=== PATIENT | male | born 1945 | race Caucasian/White ===

== ENCOUNTER 2022-12-25 03:13 | Inpatient (IN) | payer OTHER, BC ==
[2022-12-25 05:50] LABS: HEMATOCRIT 21.7 % (35.4-49); MCH 23.8 pg (25.7-33.7); MCHC 29.8 g/dl (32.0-35.9); MEAN CELL VOLUME 79.8 fl (80-96); MEAN PLT VOLUME 7.1 fl (7.5-11.1); PLATELET COUNT 971 10^3/uL (134-434); RBC 2.72 M/mm3 (4.00-5.60); RDW 20.3 % (11.9-15.9); WHITE BLOOD COUNT 26.8 K/mm3 (4.0-10.0)
[2022-12-25 06:06] LABS: HEMOGLOBIN 6.5 GM/dL (11.7-16.9)
[2022-12-25 06:09] LABS: POTASSIUM 5.1 mmol/L (3.5-5.1)
[2022-12-25 06:11] LABS: CALCIUM 9.6 mg/dL (8.5-10.1)
[2022-12-25 06:12] LABS: ALBUMIN 1.4 g/dl (3.4-5.0); BLOOD UREA NITROGEN 56.1 mg/dL (7-18)
[2022-12-25 06:15] LABS: CREATININE 1.2 mg/dL (0.55-1.3)
[2022-12-25 06:16] LABS: BILIRUBIN,TOTAL 0.2 mg/dL (0.2-1); TOT PROT 7.4 g/dl (6.4-8.2)
[2022-12-25 08:16] LABS: EPI CELLS 4 /uL (0-25.1); HYALINE CASTS 1 /uL (0-3.1); URINE APPEARANCE CLOUDY; URINE BACTERIA 2543 /uL (0-1359); URINE BILIRUBIN NEGATIVE (NEGATIVE); URINE COLOR YELLOW; URINE GLUCOSE (UA) NEGATIVE (NEGATIVE); URINE KETONE NEGATIVE (NEGATIVE); URINE LEUK ESTERASE 2+ (NEGATIVE); URINE NITRITE NEGATIVE (NEGATIVE); URINE PROTEIN 1+ (NEGATIVE); URINE RBC 5 /uL (0-23.9); URINE WBC 306 /uL (0-25.8)
[2022-12-25 08:35] LABS: YEAST MANY PRESENT (NEGATIVE)
[2022-12-25 09:02] LABS: ANISOCYTOSIS 1+; MACROCYTOSIS 1+
[2022-12-25] MEDS ORDERED: ONDANSETRON HCL 4 MG/5 ML UD CUPS GT PRN (09:57)
[2022-12-25] MEDS: FLUTICASONE PROP 0.05% 16 GM NASAL SPRAY NS SCH ×2 (10:00→22:22)
[2022-12-25] MEDS ORDERED: VENLAFAXINE HCL 75 MG E.R. CAPSULES PO SCH (10:00)
[2022-12-25] MEDS ORDERED: POLYETHYLENE GLYCOL 3350 255 GM BTL PO SCH (10:00)
[2022-12-25] MEDS: LACTULOSE 20 GM/30 ML UDC (FOR ORAL USE ONLY) GT SCH (10:00)
[2022-12-25] MEDS ORDERED: VANCOMYCIN 1 GM/200 ML PREMIX BAG (RESTRICTED TO ID ONLY) IVPB ONE (10:00)
[2022-12-25] MEDS ORDERED: PIPERACILLIN/TAZOB 3.375 GM 3.375 GM in DEXTROSE 5%-WATER - 50 ML IVPB SCH (10:00)
[2022-12-25] MEDS: ASCORBIC ACID 500 MG/5 ML UNIT DOSE CUP PO SCH ×2 (12:03→22:26)
[2022-12-25] MEDS: OXYBUTYNIN CHLORIDE 5 MG/5 ML PO SCH ×2 (12:03→22:25)
[2022-12-25 12:28] VITALS: BMI 23.8
[2022-12-25] MEDS: GABAPENTIN 250 MG/5 ML ORAL SOLUTION, 470 ML BOTTLE GT SCH ×2 (13:16→22:26)
[2022-12-25] MEDS: FAMOTIDINE 20 MG/2.5 ML ORAL LIQUID GT SCH (13:16)
[2022-12-25] MEDS: VANCOMYCIN/WATER FOR INJ (PEG) 1,000 MG/200 ML BAG IVPB SCH (17:14)
[2022-12-25] MEDS: PIPERACILLIN/TAZOB 3.375 GM 3.375 GM in DEXTROSE 5%-WATER - 50 ML IVPB SCH (18:40)
[2022-12-25] MEDS: ATORVASTATIN CA 10 MG TABLET (FP) GT SCH (21:30)
[2022-12-25] MEDS: MELATONIN 1 MG TABLET GT SCH (21:30)
[2022-12-25] MEDS: SENNOSIDES 8.8 MG/5 ML SYRUP GT SCH (21:31)
[2022-12-25] MEDS ORDERED: VANCOMYCIN 1 GM in D5W (PRE-DOCKED) 1,000 MG/250 ML (RESTRICTED TO ID ONLY IVPB SCH (22:00)
[2022-12-25] MEDS ORDERED: VANCOMYCIN/WATER FOR INJ (PEG) 1,000 MG/200 ML BAG IVPB SCH (22:00)
[2022-12-25] MEDS ORDERED: VANCOMYCIN/WATER FOR INJ (PEG) 1,000 MG/200 ML BAG IVPB ONE (22:00)
[2022-12-26] MEDS: PIPERACILLIN/TAZOB 3.375 GM 3.375 GM in DEXTROSE 5%-WATER - 50 ML IVPB SCH ×3 (02:00→18:17)
[2022-12-26] MEDS: ACETAMINOPHEN 650 MG/20.3 ML ORAL SOLUTION (CUPS) GT PRN ×2 (03:42→23:08)
[2022-12-26] MEDS: VANCOMYCIN/WATER FOR INJ (PEG) 1,000 MG/200 ML BAG IVPB SCH ×2 (04:30→16:41)
[2022-12-26] MEDS: GABAPENTIN 250 MG/5 ML ORAL SOLUTION, 470 ML BOTTLE GT SCH ×3 (06:40→22:59)
[2022-12-26 09:31] LABS: HEMATOCRIT 24.3 % (35.4-49); HEMOGLOBIN 7.4 GM/dL (11.7-16.9); MCH 24.6 pg (25.7-33.7); MCHC 30.5 g/dl (32.0-35.9); MEAN CELL VOLUME 80.7 fl (80-96); MEAN PLT VOLUME 6.5 fl (7.5-11.1); PLATELET COUNT 872 10^3/uL (134-434); RBC 3.01 M/mm3 (4.00-5.60); RDW 19.1 % (11.9-15.9)
[2022-12-26 09:56] LABS: WHITE BLOOD COUNT 34.4 K/mm3 (4.0-10.0)
[2022-12-26 09:59] LABS: CALCIUM 9.5 mg/dL (8.5-10.1)
[2022-12-26 10:02] LABS: BLOOD UREA NITROGEN 48.5 mg/dL (7-18)
[2022-12-26 10:03] LABS: CREATININE 1.4 mg/dL (0.55-1.3)
[2022-12-26] MEDS: LACTULOSE 20 GM/30 ML UDC (FOR ORAL USE ONLY) GT SCH (10:14)
[2022-12-26] MEDS: OXYBUTYNIN CHLORIDE 5 MG/5 ML PO SCH ×2 (10:15→22:58)
[2022-12-26] MEDS: FAMOTIDINE 20 MG/2.5 ML ORAL LIQUID GT SCH (10:16)
[2022-12-26] MEDS: ASCORBIC ACID 500 MG/5 ML UNIT DOSE CUP PO SCH ×2 (10:17→23:00)
[2022-12-26 10:19] LABS: ANISOCYTOSIS 2+; MACROCYTOSIS 0; ROULEAU 1+
[2022-12-26] MEDS: FLUTICASONE PROP 0.05% 16 GM NASAL SPRAY NS SCH ×2 (10:27→23:00)
[2022-12-26] MEDS: ATORVASTATIN CA 10 MG TABLET (FP) GT SCH (22:57)
[2022-12-26] MEDS: MELATONIN 1 MG TABLET GT SCH (22:58)
[2022-12-26] MEDS: SENNOSIDES 8.8 MG/5 ML SYRUP GT SCH (22:59)
[2022-12-26] MEDS: ALBUTEROL SO4 0.083% IH SOL 2.5 MG/3 ML VIAL.NEB. NEB PRN (23:27)
[2022-12-27] MEDS: INSULIN SLIDING SCALE (NOVOLOG) 1 VIAL SQ SCH ×5 (00:37→21:51)
[2022-12-27] MEDS: PIPERACILLIN/TAZOB 3.375 GM 3.375 GM in DEXTROSE 5%-WATER - 50 ML IVPB SCH ×3 (02:37→17:28)
[2022-12-27] MEDS: VANCOMYCIN/WATER FOR INJ (PEG) 1,000 MG/200 ML BAG IVPB SCH (05:54)
[2022-12-27] MEDS: GABAPENTIN 250 MG/5 ML ORAL SOLUTION, 470 ML BOTTLE GT SCH ×3 (05:55→21:52)
[2022-12-27 09:29] LABS: HEMATOCRIT 23.5 % (35.4-49); HEMOGLOBIN 7.1 GM/dL (11.7-16.9); MCH 24.6 pg (25.7-33.7); MCHC 30.3 g/dl (32.0-35.9); MEAN CELL VOLUME 81.2 fl (80-96); MEAN PLT VOLUME 6.6 fl (7.5-11.1); PLATELET COUNT 862 10^3/uL (134-434); RDW 19.4 % (11.9-15.9)
[2022-12-27 09:47] LABS: POTASSIUM 3.7 mmol/L (3.5-5.1)
[2022-12-27 09:56] LABS: ALBUMIN 1.3 g/dl (3.4-5.0); CALCIUM 9.4 mg/dL (8.5-10.1)
[2022-12-27 09:57] LABS: BLOOD UREA NITROGEN 44.1 mg/dL (7-18)
[2022-12-27 09:58] LABS: WHITE BLOOD COUNT 30.1 K/mm3 (4.0-10.0)
[2022-12-27 09:59] LABS: CREATININE 1.3 mg/dL (0.55-1.3)
[2022-12-27 10:01] LABS: BILIRUBIN,TOTAL 0.3 mg/dL (0.2-1); TOT PROT 6.9 g/dl (6.4-8.2)
[2022-12-27 10:35] LABS: ANISOCYTOSIS 3+; MACROCYTOSIS 0
[2022-12-27] MEDS: oxyCODONE HCL 5 MG TABLET GT PRN (10:41)
[2022-12-27] MEDS: OXYBUTYNIN CHLORIDE 5 MG/5 ML PO SCH ×2 (10:43→21:36)
[2022-12-27] MEDS: FAMOTIDINE 20 MG/2.5 ML ORAL LIQUID GT SCH (10:43)
[2022-12-27] MEDS: ASCORBIC ACID 500 MG/5 ML UNIT DOSE CUP PO SCH ×2 (10:43→21:35)
[2022-12-27] MEDS: LACTULOSE 20 GM/30 ML UDC (FOR ORAL USE ONLY) GT SCH (10:43)
[2022-12-27] MEDS: LACTATED RINGERS SOLUTION 1,000 ML/1,000 ML INFUS.BAG IV SCH (12:32)
[2022-12-27] MEDS: FLUTICASONE PROP 0.05% 16 GM NASAL SPRAY NS SCH ×2 (12:39→21:51)
[2022-12-27] MEDS: SENNOSIDES 8.8 MG/5 ML SYRUP GT SCH (21:35)
[2022-12-27] MEDS: MELATONIN 1 MG TABLET GT SCH (21:36)
[2022-12-27] MEDS: ATORVASTATIN CA 10 MG TABLET (FP) GT SCH (21:36)
[2022-12-27] MEDS: ACETAMINOPHEN 650 MG/20.3 ML ORAL SOLUTION (CUPS) GT PRN (21:51)
[2022-12-28] MEDS: ALBUTEROL SO4 0.083% IH SOL 2.5 MG/3 ML VIAL.NEB. NEB PRN ×2 (00:05→21:28)
[2022-12-28] MEDS: LACTATED RINGERS SOLUTION 1,000 ML/1,000 ML INFUS.BAG IV SCH (01:12)
[2022-12-28] MEDS: PIPERACILLIN/TAZOB 3.375 GM 3.375 GM in DEXTROSE 5%-WATER - 50 ML IVPB SCH ×3 (01:13→18:12)
[2022-12-28] MEDS: GABAPENTIN 250 MG/5 ML ORAL SOLUTION, 470 ML BOTTLE GT SCH ×3 (06:17→22:43)
[2022-12-28] MEDS: INSULIN SLIDING SCALE (NOVOLOG) 1 VIAL SQ SCH ×4 (06:28→22:53)
[2022-12-28] MEDS: AMINO ACIDS/PROTEIN HYDROLYS 30 ML LIQUID.PKT GT SCH (08:53)
[2022-12-28] MEDS: ACETAMINOPHEN 650 MG/20.3 ML ORAL SOLUTION (CUPS) GT PRN (08:53)
[2022-12-28 08:59] LABS: HEMATOCRIT 21.8 % (35.4-49); MCH 24.5 pg (25.7-33.7); MCHC 30.3 g/dl (32.0-35.9); MEAN CELL VOLUME 80.7 fl (80-96); MEAN PLT VOLUME 6.5 fl (7.5-11.1); PLATELET COUNT 772 10^3/uL (134-434); RDW 20.2 % (11.9-15.9); WHITE BLOOD COUNT 24.8 K/mm3 (4.0-10.0)
[2022-12-28 09:06] LABS: HEMOGLOBIN 6.6 GM/dL (11.7-16.9)
[2022-12-28] MEDS ORDERED: ACETAMINOPHEN 1000 MG/100 ML BAG IVPB PRN (09:15)
[2022-12-28 09:20] LABS: POTASSIUM 4.1 mmol/L (3.5-5.1)
[2022-12-28 09:25] LABS: CALCIUM 8.9 mg/dL (8.5-10.1)
[2022-12-28 09:29] LABS: CREATININE 1.2 mg/dL (0.55-1.3)
[2022-12-28] MEDS: MULTIVIT-MINERALS ORAL LIQUID GT SCH (10:35)
[2022-12-28] MEDS: ASCORBIC ACID 500 MG/5 ML UNIT DOSE CUP PO SCH ×2 (10:35→22:39)
[2022-12-28] MEDS: LACTULOSE 20 GM/30 ML UDC (FOR ORAL USE ONLY) GT SCH (10:35)
[2022-12-28] MEDS: FAMOTIDINE 20 MG/2.5 ML ORAL LIQUID GT SCH (10:36)
[2022-12-28] MEDS: ZINC SULFATE 220 MG CAPSULE (FP) GT SCH (10:36)
[2022-12-28] MEDS: OXYBUTYNIN CHLORIDE 5 MG/5 ML PO SCH (10:36)
[2022-12-28] MEDS: FLUTICASONE PROP 0.05% 16 GM NASAL SPRAY NS SCH ×2 (10:37→22:39)
[2022-12-28] MEDS: MELATONIN 1 MG TABLET GT SCH (22:38)
[2022-12-28] MEDS: ATORVASTATIN CA 10 MG TABLET (FP) GT SCH (22:38)
[2022-12-28] MEDS: SENNOSIDES 8.8 MG/5 ML SYRUP GT SCH (22:38)
[2022-12-28] MEDS: LINEZOLID 600 MG PREMIX BAG 600 MG/300 ML BAG IVPB SCH (22:39)
[2022-12-28] MEDS ORDERED: TUBE FEED DECLOGGING SOLUTION 12,000 UNITS GT ONE (23:41)
[2022-12-29] MEDS: PIPERACILLIN/TAZOB 3.375 GM 3.375 GM in DEXTROSE 5%-WATER - 50 ML IVPB SCH ×3 (03:00→17:30)
[2022-12-29] MEDS: OXYBUTYNIN CHLORIDE 5 MG/5 ML PO SCH ×3 (03:00→22:08)
[2022-12-29] MEDS: TUBE FEED DECLOGGING SOLUTION 12,000 UNITS GT ONE ×2 (05:03→05:05)
[2022-12-29] MEDS: GABAPENTIN 250 MG/5 ML ORAL SOLUTION, 470 ML BOTTLE GT SCH ×3 (05:56→22:08)
[2022-12-29] MEDS: INSULIN SLIDING SCALE (NOVOLOG) 1 VIAL SQ SCH ×4 (05:59→22:35)
[2022-12-29] MEDS: LINEZOLID 600 MG PREMIX BAG 600 MG/300 ML BAG IVPB SCH ×2 (07:50→22:08)
[2022-12-29] MEDS: AMINO ACIDS/PROTEIN HYDROLYS 30 ML LIQUID.PKT GT SCH ×2 (07:50→10:10)
[2022-12-29] MEDS: ALBUTEROL SO4 0.083% IH SOL 2.5 MG/3 ML VIAL.NEB. NEB PRN ×3 (08:22→20:04)
[2022-12-29] MEDS: LACTULOSE 20 GM/30 ML UDC (FOR ORAL USE ONLY) GT SCH (10:10)
[2022-12-29] MEDS: MULTIVIT-MINERALS ORAL LIQUID GT SCH (10:11)
[2022-12-29] MEDS: ZINC SULFATE 220 MG CAPSULE (FP) GT SCH (10:11)
[2022-12-29] MEDS: ASCORBIC ACID 500 MG/5 ML UNIT DOSE CUP PO SCH ×2 (10:12→22:09)
[2022-12-29] MEDS: FAMOTIDINE 20 MG/2.5 ML ORAL LIQUID GT SCH (10:12)
[2022-12-29] MEDS ORDERED: TUBE FEED DECLOGGING SOLUTION 12,000 UNITS GT ONE (10:24)
[2022-12-29 10:26] LABS: HEMATOCRIT 27.5 % (35.4-49); HEMOGLOBIN 8.6 GM/dL (11.7-16.9); MCH 25.2 pg (25.7-33.7); MCHC 31.2 g/dl (32.0-35.9); MEAN CELL VOLUME 80.9 fl (80-96); MEAN PLT VOLUME 6.7 fl (7.5-11.1); PLATELET COUNT 859 10^3/uL (134-434); RBC 3.39 M/mm3 (4.00-5.60); RDW 18.9 % (11.9-15.9); WHITE BLOOD COUNT 25.6 K/mm3 (4.0-10.0)
[2022-12-29 10:41] LABS: POTASSIUM 3.9 mmol/L (3.5-5.1)
[2022-12-29] MEDS: FLUTICASONE PROP 0.05% 16 GM NASAL SPRAY NS SCH ×2 (10:47→22:08)
[2022-12-29] MEDS: LACTATED RINGERS SOLUTION 1,000 ML/1,000 ML INFUS.BAG IV SCH (10:47)
[2022-12-29 10:48] LABS: BLOOD UREA NITROGEN 32.4 mg/dL (7-18); CALCIUM 9.7 mg/dL (8.5-10.1); MAGNESIUM 2.2 mg/dL (1.8-2.4)
[2022-12-29 10:51] LABS: CREATININE 1.1 mg/dL (0.55-1.3)
[2022-12-29] MEDS: MELATONIN 1 MG TABLET GT SCH (22:08)
[2022-12-29] MEDS: ATORVASTATIN CA 10 MG TABLET (FP) GT SCH (22:08)
[2022-12-29] MEDS: SENNOSIDES 8.8 MG/5 ML SYRUP GT SCH (22:09)
[2022-12-30] MEDS: PIPERACILLIN/TAZOB 3.375 GM 3.375 GM in DEXTROSE 5%-WATER - 50 ML IVPB SCH ×3 (03:47→18:55)
[2022-12-30] MEDS: GABAPENTIN 250 MG/5 ML ORAL SOLUTION, 470 ML BOTTLE GT SCH ×3 (05:49→22:00)
[2022-12-30] MEDS: INSULIN SLIDING SCALE (NOVOLOG) 1 VIAL SQ SCH ×4 (06:04→22:00)
[2022-12-30] MEDS ORDERED: INSULIN (NOVOLOG) ASPART 100 UNITS/ML 10ML VIAL ONE (06:46)
[2022-12-30] MEDS: ALBUTEROL SO4 0.083% IH SOL 2.5 MG/3 ML VIAL.NEB. NEB PRN (08:15)
[2022-12-30] MEDS: LINEZOLID 600 MG PREMIX BAG 600 MG/300 ML BAG IVPB SCH ×2 (09:03→23:54)
[2022-12-30] MEDS: AMINO ACIDS/PROTEIN HYDROLYS 30 ML LIQUID.PKT GT SCH (09:03)
[2022-12-30 10:14] LABS: POTASSIUM 3.6 mmol/L (3.5-5.1)
[2022-12-30 10:22] LABS: CALCIUM 9.8 mg/dL (8.5-10.1)
[2022-12-30 10:23] LABS: BLOOD UREA NITROGEN 27.8 mg/dL (7-18)
[2022-12-30 10:26] LABS: CREATININE 1.1 mg/dL (0.55-1.3)
[2022-12-30 10:32] LABS: HEMATOCRIT 26.5 % (35.4-49); HEMOGLOBIN 8.1 GM/dL (11.7-16.9); MCH 25.1 pg (25.7-33.7); MCHC 30.5 g/dl (32.0-35.9); MEAN CELL VOLUME 82.5 fl (80-96); MEAN PLT VOLUME 7.1 fl (7.5-11.1); PLATELET COUNT 801 10^3/uL (134-434); RBC 3.21 M/mm3 (4.00-5.60); RDW 19.8 % (11.9-15.9); WHITE BLOOD COUNT 18.9 K/mm3 (4.0-10.0)
[2022-12-30] MEDS: ALBUTEROL SO4 2.5/IPRATROPIUM 0.5 INH SOL 3 ML VIAL.NEB. NEB SCH ×3 (11:15→19:51)
[2022-12-30] MEDS: guaiFENesin/D-M SUGAR-FREE/ACLHOL-FREE 5 ML UNIT DOSE GT SCH ×3 (11:35→20:15)
[2022-12-30] MEDS: LACTULOSE 20 GM/30 ML UDC (FOR ORAL USE ONLY) GT SCH (11:35)
[2022-12-30] MEDS: MULTIVIT-MINERALS ORAL LIQUID GT SCH (11:36)
[2022-12-30] MEDS: FAMOTIDINE 20 MG/2.5 ML ORAL LIQUID GT SCH (11:37)
[2022-12-30] MEDS: ZINC SULFATE 220 MG CAPSULE (FP) GT SCH (11:37)
[2022-12-30] MEDS: FLUTICASONE PROP 0.05% 16 GM NASAL SPRAY NS SCH ×2 (11:37→22:00)
[2022-12-30] MEDS: ASCORBIC ACID 500 MG/5 ML UNIT DOSE CUP PO SCH ×2 (11:38→22:00)
[2022-12-30] MEDS: OXYBUTYNIN CHLORIDE 5 MG/5 ML PO SCH ×2 (11:53→22:00)
[2022-12-30] MEDS ORDERED: ONDANSETRON 4 MG/2 ML VIAL IVPUSH PRN (14:29)
[2022-12-30] MEDS: SODIUM CHLORIDE 0.45% 1,000 ML IV SCH (14:55)
[2022-12-30] MEDS ORDERED: ACETAMINOPHEN 1000 MG/100 ML BAG IVPB PRN (18:38)
[2022-12-30] MEDS ORDERED: MEROPENEM 1 GM in DEXTROSE 5%-WATER 100 ML IVPB SCH (18:45)
[2022-12-30] MEDS: LACTATED RINGERS SOLUTION 1,000 ML/1,000 ML INFUS.BAG IV SCH (19:14)
[2022-12-30] MEDS: MEROPENEM 1 GM in DEXTROSE 5%-WATER 100 ML IVPB SCH (20:31)
[2022-12-30] MEDS: ATORVASTATIN CA 10 MG TABLET (FP) GT SCH (22:00)
[2022-12-30] MEDS: SENNOSIDES 8.8 MG/5 ML SYRUP GT SCH (22:00)
[2022-12-30] MEDS: MELATONIN 1 MG TABLET GT SCH (22:00)
[2022-12-31] MEDS: PIPERACILLIN/TAZOB 3.375 GM 3.375 GM in DEXTROSE 5%-WATER - 50 ML IVPB SCH ×2 (01:05→11:37)
[2022-12-31] MEDS: guaiFENesin/D-M SUGAR-FREE/ACLHOL-FREE 5 ML UNIT DOSE GT SCH ×4 (02:54→22:55)
[2022-12-31] MEDS: MEROPENEM 1 GM in DEXTROSE 5%-WATER 100 ML IVPB SCH ×3 (04:37→17:45)
[2022-12-31] MEDS: GABAPENTIN 250 MG/5 ML ORAL SOLUTION, 470 ML BOTTLE GT SCH ×3 (05:09→22:55)
[2022-12-31] MEDS: INSULIN SLIDING SCALE (NOVOLOG) 1 VIAL SQ SCH ×4 (06:19→22:50)
[2022-12-31] MEDS: ALBUTEROL SO4 2.5/IPRATROPIUM 0.5 INH SOL 3 ML VIAL.NEB. NEB SCH ×4 (07:47→20:36)
[2022-12-31] MEDS: LINEZOLID 600 MG PREMIX BAG 600 MG/300 ML BAG IVPB SCH ×2 (08:51→22:00)
[2022-12-31] MEDS: AMINO ACIDS/PROTEIN HYDROLYS 30 ML LIQUID.PKT GT SCH ×2 (08:51→17:46)
[2022-12-31 10:09] LABS: HEMATOCRIT 25.9 % (35.4-49); HEMOGLOBIN 7.9 GM/dL (11.7-16.9); MCH 25.1 pg (25.7-33.7); MCHC 30.4 g/dl (32.0-35.9); MEAN CELL VOLUME 82.6 fl (80-96); MEAN PLT VOLUME 7.1 fl (7.5-11.1); PLATELET COUNT 808 10^3/uL (134-434); RBC 3.14 M/mm3 (4.00-5.60); RDW 19.9 % (11.9-15.9); WHITE BLOOD COUNT 23.3 K/mm3 (4.0-10.0)
[2022-12-31 10:26] LABS: POTASSIUM 3.4 mmol/L (3.5-5.1)
[2022-12-31 10:34] LABS: CALCIUM 9.4 mg/dL (8.5-10.1); MAGNESIUM 2.3 mg/dL (1.8-2.4)
[2022-12-31 10:35] LABS: BLOOD UREA NITROGEN 24.9 mg/dL (7-18)
[2022-12-31 10:38] LABS: CREATININE 1.1 mg/dL (0.55-1.3); PHOSPHOROUS 3.7 mg/dL (2.5-4.9)
[2022-12-31] MEDS: LACTULOSE 20 GM/30 ML UDC (FOR ORAL USE ONLY) GT SCH (11:30)
[2022-12-31] MEDS: MULTIVIT-MINERALS ORAL LIQUID GT SCH (11:30)
[2022-12-31] MEDS: FLUTICASONE PROP 0.05% 16 GM NASAL SPRAY NS SCH ×2 (11:30→22:46)
[2022-12-31] MEDS: FAMOTIDINE 20 MG/2.5 ML ORAL LIQUID GT SCH (11:31)
[2022-12-31] MEDS: ASCORBIC ACID 500 MG/5 ML UNIT DOSE CUP PO SCH ×2 (11:31→22:49)
[2022-12-31] MEDS: OXYBUTYNIN CHLORIDE 5 MG/5 ML PO SCH ×2 (11:31→22:50)
[2022-12-31] MEDS: ONDANSETRON 4 MG/2 ML VIAL IVPUSH SCH ×3 (11:37→22:45)
[2022-12-31] MEDS ORDERED: POTASSIUM CHLORIDE ORAL LIQUID 20 MEQ/15 ML PO ONE (13:31)
[2022-12-31] MEDS: oxyCODONE HCL 5 MG TABLET GT PRN (15:16)
[2022-12-31] MEDS: SODIUM CHLORIDE 0.45% 1,000 ML IV SCH (16:36)
[2022-12-31] MEDS: MELATONIN 1 MG TABLET GT SCH (22:47)
[2022-12-31] MEDS: ATORVASTATIN CA 10 MG TABLET (FP) GT SCH (22:47)
[2022-12-31] MEDS: SENNOSIDES 8.8 MG/5 ML SYRUP GT SCH (22:48)
[2023-01-01] MEDS: MEROPENEM 1 GM in DEXTROSE 5%-WATER 100 ML IVPB SCH ×3 (02:51→17:04)
[2023-01-01] MEDS: ONDANSETRON 4 MG/2 ML VIAL IVPUSH SCH ×4 (02:51→21:08)
[2023-01-01] MEDS: guaiFENesin/D-M SUGAR-FREE/ACLHOL-FREE 5 ML UNIT DOSE GT SCH ×4 (06:00→23:07)
[2023-01-01] MEDS: GABAPENTIN 250 MG/5 ML ORAL SOLUTION, 470 ML BOTTLE GT SCH ×3 (06:03→23:02)
[2023-01-01] MEDS: INSULIN SLIDING SCALE (NOVOLOG) 1 VIAL SQ SCH ×4 (06:22→23:06)
[2023-01-01] MEDS: oxyCODONE HCL 5 MG TABLET GT PRN ×2 (06:25→23:02)
[2023-01-01] MEDS ORDERED: ALBUTEROL SO4 2.5/IPRATROPIUM 0.5 INH SOL 3 ML VIAL.NEB. NEB ONE (07:04)
[2023-01-01] MEDS ORDERED: SODIUM CHLORIDE 0.45% 1,000 ML IV SCH (08:05)
[2023-01-01] MEDS: ALBUTEROL SO4 2.5/IPRATROPIUM 0.5 INH SOL 3 ML VIAL.NEB. NEB SCH ×4 (08:05→20:40)
[2023-01-01 10:00] LABS: BASO % 1.4 % (0-2.0); EOS % 2.2 % (0-4.5); HEMATOCRIT 24.7 % (35.4-49); HEMOGLOBIN 7.4 GM/dL (11.7-16.9); LYMPH % 5.2 % (8-40); MCH 25.1 pg (25.7-33.7); MCHC 30.1 g/dl (32.0-35.9); MEAN CELL VOLUME 83.4 fl (80-96); MEAN PLT VOLUME 7.4 fl (7.5-11.1); MONO % 8.3 % (3.8-10.2); NEUT % 82.9 % (42.8-82.8); PLATELET COUNT 660 10^3/uL (134-434); RBC 2.97 M/mm3 (4.00-5.60); RDW 20.2 % (11.9-15.9); WHITE BLOOD COUNT 19.7 K/mm3 (4.0-10.0)
[2023-01-01 10:12] LABS: POTASSIUM 3.7 mmol/L (3.5-5.1)
[2023-01-01 10:17] LABS: BLOOD UREA NITROGEN 22.8 mg/dL (7-18); CALCIUM 9.2 mg/dL (8.5-10.1)
[2023-01-01 10:18] LABS: MAGNESIUM 2.1 mg/dL (1.8-2.4)
[2023-01-01] MEDS ORDERED: FUROSEMIDE 40 MG/4 ML INJECTABLE VIAL IVPUSH ONE (10:40)
[2023-01-01] MEDS: LINEZOLID 600 MG PREMIX BAG 600 MG/300 ML BAG IVPB SCH ×2 (11:45→21:08)
[2023-01-01] MEDS: ENOXAPARIN NA (PORCINE) 40 MG/0.4 ML DISP.SYRIN SQ SCH (11:50)
[2023-01-01] MEDS: AMINO ACIDS/PROTEIN HYDROLYS 30 ML LIQUID.PKT GT SCH ×2 (11:50→17:04)
[2023-01-01] MEDS: FAMOTIDINE 20 MG/2.5 ML ORAL LIQUID GT SCH (11:51)
[2023-01-01] MEDS: OXYBUTYNIN CHLORIDE 5 MG/5 ML PO SCH ×2 (11:51→23:05)
[2023-01-01] MEDS: MULTIVIT-MINERALS ORAL LIQUID GT SCH (11:51)
[2023-01-01] MEDS: ASCORBIC ACID 500 MG/5 ML UNIT DOSE CUP PO SCH ×2 (11:51→23:05)
[2023-01-01] MEDS: FLUTICASONE PROP 0.05% 16 GM NASAL SPRAY NS SCH ×2 (12:19→23:03)
[2023-01-01] MEDS: LACTULOSE 20 GM/30 ML UDC (FOR ORAL USE ONLY) GT SCH (13:08)
[2023-01-01] MEDS: ATORVASTATIN CA 10 MG TABLET (FP) GT SCH (23:01)
[2023-01-01] MEDS: MELATONIN 1 MG TABLET GT SCH (23:02)
[2023-01-01] MEDS: SENNOSIDES 8.8 MG/5 ML SYRUP GT SCH (23:05)
[2023-01-02] MEDS: ALBUTEROL SO4 2.5/IPRATROPIUM 0.5 INH SOL 3 ML VIAL.NEB. NEB SCH ×6 (00:16→20:52)
[2023-01-02] MEDS: MEROPENEM 1 GM in DEXTROSE 5%-WATER 100 ML IVPB SCH ×3 (02:06→18:04)
[2023-01-02] MEDS: ONDANSETRON 4 MG/2 ML VIAL IVPUSH SCH ×4 (03:23→23:49)
[2023-01-02] MEDS: guaiFENesin/D-M SUGAR-FREE/ACLHOL-FREE 5 ML UNIT DOSE GT SCH ×4 (03:23→21:46)
[2023-01-02] MEDS: GABAPENTIN 250 MG/5 ML ORAL SOLUTION, 470 ML BOTTLE GT SCH ×3 (05:44→21:49)
[2023-01-02] MEDS: INSULIN SLIDING SCALE (NOVOLOG) 1 VIAL SQ SCH ×4 (06:30→23:50)
[2023-01-02] MEDS ORDERED: FUROSEMIDE 40 MG/4 ML INJECTABLE VIAL IVPUSH ONE (08:26)
[2023-01-02] MEDS: LINEZOLID 600 MG PREMIX BAG 600 MG/300 ML BAG IVPB SCH ×2 (08:38→21:52)
[2023-01-02] MEDS: AMINO ACIDS/PROTEIN HYDROLYS 30 ML LIQUID.PKT GT SCH ×2 (08:38→18:04)
[2023-01-02 09:24] LABS: BASO % 0.8 % (0-2.0); EOS % 3.3 % (0-4.5); HEMATOCRIT 25.5 % (35.4-49); HEMOGLOBIN 7.6 GM/dL (11.7-16.9); LYMPH % 5.7 % (8-40); MCH 24.8 pg (25.7-33.7); MCHC 29.6 g/dl (32.0-35.9); MEAN CELL VOLUME 83.8 fl (80-96); MEAN PLT VOLUME 7.3 fl (7.5-11.1); MONO % 8.2 % (3.8-10.2); PLATELET COUNT 646 10^3/uL (134-434); RBC 3.05 M/mm3 (4.00-5.60); RDW 20.1 % (11.9-15.9); WHITE BLOOD COUNT 16.4 K/mm3 (4.0-10.0)
[2023-01-02 09:54] LABS: POTASSIUM 3.7 mmol/L (3.5-5.1)
[2023-01-02 09:59] LABS: ALBUMIN 1.1 g/dl (3.4-5.0); BLOOD UREA NITROGEN 29.7 mg/dL (7-18); CALCIUM 9.4 mg/dL (8.5-10.1); MAGNESIUM 2.4 mg/dL (1.8-2.4)
[2023-01-02 10:02] LABS: CREATININE 1.1 mg/dL (0.55-1.3); PHOSPHOROUS 4.1 mg/dL (2.5-4.9)
[2023-01-02 10:04] LABS: BILIRUBIN,TOTAL 0.7 mg/dL (0.2-1); TOT PROT 6.4 g/dl (6.4-8.2)
[2023-01-02] MEDS: ENOXAPARIN NA (PORCINE) 40 MG/0.4 ML DISP.SYRIN SQ SCH (11:12)
[2023-01-02] MEDS: LACTULOSE 20 GM/30 ML UDC (FOR ORAL USE ONLY) GT SCH (11:14)
[2023-01-02] MEDS: MULTIVIT-MINERALS ORAL LIQUID GT SCH (11:14)
[2023-01-02] MEDS: ASCORBIC ACID 500 MG/5 ML UNIT DOSE CUP PO SCH ×2 (11:15→23:51)
[2023-01-02] MEDS: FAMOTIDINE 20 MG/2.5 ML ORAL LIQUID GT SCH (11:15)
[2023-01-02] MEDS: FLUTICASONE PROP 0.05% 16 GM NASAL SPRAY NS SCH ×2 (11:16→23:49)
[2023-01-02] MEDS: OXYBUTYNIN CHLORIDE 5 MG/5 ML PO SCH ×2 (14:26→23:51)
[2023-01-02] MEDS: ATORVASTATIN CA 10 MG TABLET (FP) GT SCH (23:48)
[2023-01-02] MEDS: MELATONIN 1 MG TABLET GT SCH (23:48)
[2023-01-02] MEDS: SENNOSIDES 8.8 MG/5 ML SYRUP GT SCH (23:51)
[2023-01-03] MEDS: ALBUTEROL SO4 2.5/IPRATROPIUM 0.5 INH SOL 3 ML VIAL.NEB. NEB SCH ×6 (00:30→20:41)
[2023-01-03] MEDS: MEROPENEM 1 GM in DEXTROSE 5%-WATER 100 ML IVPB SCH ×3 (02:26→16:58)
[2023-01-03] MEDS: guaiFENesin/D-M SUGAR-FREE/ACLHOL-FREE 5 ML UNIT DOSE GT SCH ×4 (02:32→22:16)
[2023-01-03] MEDS: ONDANSETRON 4 MG/2 ML VIAL IVPUSH SCH ×3 (03:38→16:15)
[2023-01-03] MEDS: ACETAMINOPHEN 325 MG TABLET (FP) NR PRN ×2 (05:36→13:09)
[2023-01-03] MEDS: INSULIN SLIDING SCALE (NOVOLOG) 1 VIAL SQ SCH ×4 (07:00→22:23)
[2023-01-03] MEDS: GABAPENTIN 250 MG/5 ML ORAL SOLUTION, 470 ML BOTTLE GT SCH ×4 (07:19→22:23)
[2023-01-03] MEDS: LINEZOLID 600 MG PREMIX BAG 600 MG/300 ML BAG IVPB SCH ×2 (08:00→22:18)
[2023-01-03 09:54] LABS: BASO % 1.3 % (0-2.0); EOS % 1.9 % (0-4.5); HEMATOCRIT 25.8 % (35.4-49); HEMOGLOBIN 7.8 GM/dL (11.7-16.9); MCH 24.9 pg (25.7-33.7); MCHC 30.1 g/dl (32.0-35.9); MEAN CELL VOLUME 82.8 fl (80-96); MEAN PLT VOLUME 7.4 fl (7.5-11.1); MONO % 7.3 % (3.8-10.2); NEUT % 80.5 % (42.8-82.8); PLATELET COUNT 654 10^3/uL (134-434); RBC 3.12 M/mm3 (4.00-5.60); WHITE BLOOD COUNT 15.6 K/mm3 (4.0-10.0)
[2023-01-03 10:21] LABS: CALCIUM 9.4 mg/dL (8.5-10.1)
[2023-01-03 10:22] LABS: ALBUMIN 1.1 g/dl (3.4-5.0); BLOOD UREA NITROGEN 30.5 mg/dL (7-18); MAGNESIUM 2.3 mg/dL (1.8-2.4)
[2023-01-03 10:24] LABS: CREATININE 1.1 mg/dL (0.55-1.3); PHOSPHOROUS 3.1 mg/dL (2.5-4.9)
[2023-01-03 10:26] LABS: BILIRUBIN,TOTAL 0.5 mg/dL (0.2-1); TOT PROT 6.6 g/dl (6.4-8.2)
[2023-01-03] MEDS: AMINO ACIDS/PROTEIN HYDROLYS 30 ML LIQUID.PKT GT SCH ×2 (10:39→16:58)
[2023-01-03] MEDS: MULTIVIT-MINERALS ORAL LIQUID GT SCH (10:41)
[2023-01-03] MEDS: ENOXAPARIN NA (PORCINE) 40 MG/0.4 ML DISP.SYRIN SQ SCH (10:42)
[2023-01-03] MEDS: OXYBUTYNIN CHLORIDE 5 MG/5 ML PO SCH ×2 (10:42→22:15)
[2023-01-03] MEDS: FLUTICASONE PROP 0.05% 16 GM NASAL SPRAY NS SCH ×2 (10:42→22:19)
[2023-01-03] MEDS: FAMOTIDINE 20 MG/2.5 ML ORAL LIQUID GT SCH (10:43)
[2023-01-03] MEDS: ASCORBIC ACID 500 MG/5 ML UNIT DOSE CUP PO SCH ×2 (10:43→22:17)
[2023-01-03] MEDS: LACTULOSE 20 GM/30 ML UDC (FOR ORAL USE ONLY) GT SCH (10:59)
[2023-01-03 12:30] LABS: ARTERIAL BLD GAS O2 SATURATION 98.3 % (95-98); ARTERIAL BLOOD GAS BASE EXCESS 1.8 mmol/L (-2-2); ARTERIAL BLOOD GAS PO2 121.7 mmHg (80-100)
[2023-01-03 12:36] LABS: ALLENS TEST POSITIVE
[2023-01-03 14:03] LABS: INR 1.31 (0.83-1.09); PROTHROMBIN TIME (PATIENT) 15.1 SEC (9.7-13.0)
[2023-01-03] MEDS: COLLAGENASE CLOSTRIDIUM HIST. 30 GRAMS TUBE TP SCH (16:14)
[2023-01-03] MEDS ORDERED: ONDANSETRON 4 MG/2 ML VIAL IVPUSH PRN (16:19)
[2023-01-03] MEDS ORDERED: MEROPENEM 1 GM in DEXTROSE 5%-WATER 100 ML IVPB SCH (18:00)
[2023-01-03] MEDS: MELATONIN 1 MG TABLET GT SCH (22:13)
[2023-01-03] MEDS: ATORVASTATIN CA 10 MG TABLET (FP) GT SCH (22:13)
[2023-01-03] MEDS: SENNOSIDES 8.8 MG/5 ML SYRUP GT SCH (22:15)
[2023-01-04] MEDS: ALBUTEROL SO4 2.5/IPRATROPIUM 0.5 INH SOL 3 ML VIAL.NEB. NEB SCH ×6 (01:24→20:09)
[2023-01-04] MEDS: MEROPENEM 1 GM in DEXTROSE 5%-WATER 100 ML IVPB SCH ×3 (01:35→18:52)
[2023-01-04] MEDS: guaiFENesin/D-M SUGAR-FREE/ACLHOL-FREE 5 ML UNIT DOSE GT SCH ×4 (01:37→20:48)
[2023-01-04] MEDS: INSULIN SLIDING SCALE (NOVOLOG) 1 VIAL SQ SCH ×4 (06:02→21:15)
[2023-01-04] MEDS: GABAPENTIN 250 MG/5 ML ORAL SOLUTION, 470 ML BOTTLE GT SCH ×3 (06:05→22:25)
[2023-01-04] MEDS: AMINO ACIDS/PROTEIN HYDROLYS 30 ML LIQUID.PKT GT SCH ×2 (08:33→18:51)
[2023-01-04] MEDS: ACETAMINOPHEN 1000 MG/100 ML BAG IVPB PRN ×2 (08:34→18:52)
[2023-01-04] MEDS: LINEZOLID 600 MG PREMIX BAG 600 MG/300 ML BAG IVPB SCH ×2 (08:35→20:47)
[2023-01-04 09:36] LABS: HEMATOCRIT 24.7 % (35.4-49); HEMOGLOBIN 7.4 GM/dL (11.7-16.9); MCH 24.7 pg (25.7-33.7); MEAN CELL VOLUME 82.5 fl (80-96); MEAN PLT VOLUME 7.4 fl (7.5-11.1); PLATELET COUNT 590 10^3/uL (134-434); RDW 20.3 % (11.9-15.9); WHITE BLOOD COUNT 19.1 K/mm3 (4.0-10.0)
[2023-01-04 10:01] LABS: CALCIUM 9.1 mg/dL (8.5-10.1)
[2023-01-04 10:02] LABS: BLOOD UREA NITROGEN 29.4 mg/dL (7-18)
[2023-01-04 10:05] LABS: CREATININE 0.9 mg/dL (0.55-1.3); MAGNESIUM 2.2 mg/dL (1.8-2.4)
[2023-01-04] MEDS: MULTIVIT-MINERALS ORAL LIQUID GT SCH (10:13)
[2023-01-04] MEDS: ENOXAPARIN NA (PORCINE) 40 MG/0.4 ML DISP.SYRIN SQ SCH (10:13)
[2023-01-04] MEDS: FAMOTIDINE 20 MG/2.5 ML ORAL LIQUID GT SCH (10:13)
[2023-01-04] MEDS: LACTULOSE 20 GM/30 ML UDC (FOR ORAL USE ONLY) GT SCH (10:14)
[2023-01-04] MEDS: FLUTICASONE PROP 0.05% 16 GM NASAL SPRAY NS SCH ×2 (10:15→22:26)
[2023-01-04] MEDS: ASCORBIC ACID 500 MG/5 ML UNIT DOSE CUP PO SCH ×2 (10:16→22:26)
[2023-01-04] MEDS: OXYBUTYNIN CHLORIDE 5 MG/5 ML PO SCH ×2 (10:16→22:26)
[2023-01-04] MEDS: COLLAGENASE CLOSTRIDIUM HIST. 30 GRAMS TUBE TP SCH (10:16)
[2023-01-04 12:19] LABS: POTASSIUM 4.4 mmol/L (3.5-5.1)
[2023-01-04] MEDS: MELATONIN 1 MG TABLET GT SCH (22:26)
[2023-01-04] MEDS: ATORVASTATIN CA 10 MG TABLET (FP) GT SCH (22:26)
[2023-01-04] MEDS ORDERED: IBUPROFEN 800 MG/8 ML IJ IVPB ONE (22:44)
[2023-01-05] MEDS: ALBUTEROL SO4 2.5/IPRATROPIUM 0.5 INH SOL 3 ML VIAL.NEB. NEB SCH ×6 (00:23→20:51)
[2023-01-05] MEDS: MEROPENEM 1 GM in DEXTROSE 5%-WATER 100 ML IVPB SCH ×3 (02:02→17:35)
[2023-01-05] MEDS ORDERED: guaiFENesin/D-M SUGAR-FREE/ACLHOL-FREE (200 MG/10 MG) 5 ML PO ONE (02:37)
[2023-01-05] MEDS: guaiFENesin/D-M SUGAR-FREE/ACLHOL-FREE 5 ML UNIT DOSE GT SCH ×4 (03:09→22:02)
[2023-01-05] MEDS: GABAPENTIN 250 MG/5 ML ORAL SOLUTION, 470 ML BOTTLE GT SCH ×3 (05:08→22:50)
[2023-01-05] MEDS: INSULIN SLIDING SCALE (NOVOLOG) 1 VIAL SQ SCH ×4 (06:47→22:01)
[2023-01-05] MEDS: AMINO ACIDS/PROTEIN HYDROLYS 30 ML LIQUID.PKT GT SCH ×2 (08:45→16:54)
[2023-01-05] MEDS: LINEZOLID 600 MG PREMIX BAG 600 MG/300 ML BAG IVPB SCH ×2 (08:45→22:03)
[2023-01-05 10:19] LABS: BASO % 1.1 % (0-2.0); EOS % 3.1 % (0-4.5); HEMATOCRIT 25.1 % (35.4-49); HEMOGLOBIN 7.8 GM/dL (11.7-16.9); LYMPH % 5.9 % (8-40); MCH 25.4 pg (25.7-33.7); MCHC 31.1 g/dl (32.0-35.9); MEAN CELL VOLUME 81.7 fl (80-96); MEAN PLT VOLUME 6.8 fl (7.5-11.1); MONO % 11.3 % (3.8-10.2); NEUT % 78.6 % (42.8-82.8); PLATELET COUNT 477 10^3/uL (134-434); RBC 3.08 M/mm3 (4.00-5.60); RDW 20.3 % (11.9-15.9); WHITE BLOOD COUNT 17.7 K/mm3 (4.0-10.0)
[2023-01-05] MEDS: MULTIVIT-MINERALS ORAL LIQUID GT SCH (10:35)
[2023-01-05] MEDS: ENOXAPARIN NA (PORCINE) 40 MG/0.4 ML DISP.SYRIN SQ SCH (10:36)
[2023-01-05] MEDS: FAMOTIDINE 20 MG/2.5 ML ORAL LIQUID GT SCH (10:37)
[2023-01-05] MEDS: OXYBUTYNIN CHLORIDE 5 MG/5 ML PO SCH ×2 (10:37→21:50)
[2023-01-05] MEDS: ASCORBIC ACID 500 MG/5 ML UNIT DOSE CUP PO SCH ×2 (10:38→22:51)
[2023-01-05] MEDS: FLUTICASONE PROP 0.05% 16 GM NASAL SPRAY NS SCH ×2 (10:56→22:04)
[2023-01-05] MEDS: COLLAGENASE CLOSTRIDIUM HIST. 30 GRAMS TUBE TP SCH (10:56)
[2023-01-05 11:12] LABS: CHLORIDE 104 mmol/L (98-107); POTASSIUM 4.4 mmol/L (3.5-5.1); SODIUM 141 mmol/L (136-145)
[2023-01-05 11:38] LABS: ANION GAP 6 MMOL/L (8-16); BLOOD UREA NITROGEN 34.9 mg/dL (7-18); CO2 32 mmol/L (21-32); GLUCOSE,RANDOM 159 mg/dL (74-106); MAGNESIUM 2.3 mg/dL (1.8-2.4)
[2023-01-05 11:42] LABS: CREATININE 0.9 mg/dL (0.55-1.3); SGOT/AST 23 U/L (15-37)
[2023-01-05 11:43] LABS: BILIRUBIN,TOTAL < 0.1 mg/dL (0.2-1); SGPT/ALT 16 U/L (13-61); TOT PROT 6.4 g/dl (6.4-8.2)
[2023-01-05 11:44] LABS: ALK PHOS 92 U/L (45-117)
[2023-01-05] MEDS ORDERED: TUBE FEED DECLOGGING SOLUTION 12,000 UNITS GT ONE (14:05)
[2023-01-05] MEDS: NYSTATIN 100,000 UNIT/GM TOPICAL CREAM 15 GM TUBE TP SCH ×2 (14:52→22:04)
[2023-01-05] MEDS ORDERED: ACETAMINOPHEN 1000 MG/100 ML BAG IVPB PRN (15:10)
[2023-01-05] MEDS: ATORVASTATIN CA 10 MG TABLET (FP) GT SCH (21:50)
[2023-01-05] MEDS: MELATONIN 1 MG TABLET GT SCH (21:50)
[2023-01-06] MEDS: ALBUTEROL SO4 2.5/IPRATROPIUM 0.5 INH SOL 3 ML VIAL.NEB. NEB SCH ×6 (00:20→19:05)
[2023-01-06] MEDS: guaiFENesin/D-M SUGAR-FREE/ACLHOL-FREE 5 ML UNIT DOSE GT SCH ×4 (02:24→22:43)
[2023-01-06] MEDS: MEROPENEM 1 GM in DEXTROSE 5%-WATER 100 ML IVPB SCH ×3 (02:24→17:21)
[2023-01-06] MEDS: GABAPENTIN 250 MG/5 ML ORAL SOLUTION, 470 ML BOTTLE GT SCH ×3 (05:28→22:55)
[2023-01-06] MEDS: INSULIN SLIDING SCALE (NOVOLOG) 1 VIAL SQ SCH ×4 (06:01→23:04)
[2023-01-06] MEDS: AMINO ACIDS/PROTEIN HYDROLYS 30 ML LIQUID.PKT GT SCH ×2 (08:12→16:49)
[2023-01-06] MEDS: LINEZOLID 600 MG PREMIX BAG 600 MG/300 ML BAG IVPB SCH ×2 (08:12→22:42)
[2023-01-06 09:07] LABS: HEMATOCRIT 23.1 % (35.4-49); HEMOGLOBIN 7.1 GM/dL (11.7-16.9); MCH 25.3 pg (25.7-33.7); MCHC 30.8 g/dl (32.0-35.9); MEAN CELL VOLUME 82.2 fl (80-96); MEAN PLT VOLUME 7.3 fl (7.5-11.1); PLATELET COUNT 506 10^3/uL (134-434); RBC 2.81 M/mm3 (4.00-5.60); WHITE BLOOD COUNT 14.1 K/mm3 (4.0-10.0)
[2023-01-06 09:25] LABS: POTASSIUM 4.4 mmol/L (3.5-5.1)
[2023-01-06] MEDS: OXYBUTYNIN CHLORIDE 5 MG/5 ML PO SCH ×2 (09:46→22:43)
[2023-01-06] MEDS: ASCORBIC ACID 500 MG/5 ML UNIT DOSE CUP PO SCH ×2 (09:47→22:44)
[2023-01-06] MEDS: MULTIVIT-MINERALS ORAL LIQUID GT SCH (09:48)
[2023-01-06] MEDS: FAMOTIDINE 20 MG/2.5 ML ORAL LIQUID GT SCH (09:49)
[2023-01-06] MEDS: FLUTICASONE PROP 0.05% 16 GM NASAL SPRAY NS SCH ×2 (09:49→22:43)
[2023-01-06] MEDS: NYSTATIN 100,000 UNIT/GM TOPICAL CREAM 15 GM TUBE TP SCH ×2 (09:49→22:43)
[2023-01-06] MEDS: ENOXAPARIN NA (PORCINE) 40 MG/0.4 ML DISP.SYRIN SQ SCH (09:49)
[2023-01-06 09:50] LABS: BLOOD UREA NITROGEN 36.2 mg/dL (7-18)
[2023-01-06] MEDS: COLLAGENASE CLOSTRIDIUM HIST. 30 GRAMS TUBE TP SCH (09:50)
[2023-01-06 09:54] LABS: CREATININE 0.9 mg/dL (0.55-1.3)
[2023-01-06 10:06] LABS: CALCIUM 8.9 mg/dL (8.5-10.1)
[2023-01-06] MEDS ORDERED: INSULIN (NOVOLOG) ASPART 100 UNITS/ML 10ML VIAL ONE (10:57)
[2023-01-06] MEDS ORDERED: ACETYLCYSTEINE 20% 200MG/ML 4 ML VIAL *FOR ORAL / INH USE ONLY NEB ONE (22:17)
[2023-01-06] MEDS ORDERED: ALBUTEROL SO4 2.5/IPRATROPIUM 0.5 INH SOL 3 ML VIAL.NEB. NEB ONE (22:17)
[2023-01-06] MEDS ORDERED: FUROSEMIDE 40 MG/4 ML INJECTABLE VIAL IVPUSH ONE (22:30)
[2023-01-06] MEDS: ATORVASTATIN CA 10 MG TABLET (FP) GT SCH (22:43)
[2023-01-06] MEDS: MELATONIN 1 MG TABLET GT SCH (22:43)
[2023-01-07] MEDS: ALBUTEROL SO4 2.5/IPRATROPIUM 0.5 INH SOL 3 ML VIAL.NEB. NEB SCH ×6 (00:24→21:46)
[2023-01-07] MEDS: MEROPENEM 1 GM in DEXTROSE 5%-WATER 100 ML IVPB SCH ×3 (01:00→18:13)
[2023-01-07] MEDS: guaiFENesin/D-M SUGAR-FREE/ACLHOL-FREE 5 ML UNIT DOSE GT SCH ×4 (01:18→20:54)
[2023-01-07] MEDS: GABAPENTIN 250 MG/5 ML ORAL SOLUTION, 470 ML BOTTLE GT SCH ×3 (05:56→22:32)
[2023-01-07] MEDS: INSULIN SLIDING SCALE (NOVOLOG) 1 VIAL SQ SCH ×4 (06:00→22:20)
[2023-01-07] MEDS: LINEZOLID 600 MG PREMIX BAG 600 MG/300 ML BAG IVPB SCH ×2 (08:48→20:54)
[2023-01-07] MEDS: ENOXAPARIN NA (PORCINE) 40 MG/0.4 ML DISP.SYRIN SQ SCH ×2 (08:54→10:22)
[2023-01-07] MEDS: AMINO ACIDS/PROTEIN HYDROLYS 30 ML LIQUID.PKT GT SCH ×2 (08:54→18:13)
[2023-01-07] MEDS: MULTIVIT-MINERALS ORAL LIQUID GT SCH ×2 (08:55→10:22)
[2023-01-07] MEDS: FLUTICASONE PROP 0.05% 16 GM NASAL SPRAY NS SCH ×3 (08:56→22:32)
[2023-01-07] MEDS: SODIUM CHLORIDE FOR INHALATION 3 ML VIAL.NEB IH ONE ×2 (08:56→09:05)
[2023-01-07] MEDS: NYSTATIN 100,000 UNIT/GM TOPICAL CREAM 15 GM TUBE TP SCH ×3 (08:58→22:33)
[2023-01-07] MEDS: ASCORBIC ACID 500 MG/5 ML UNIT DOSE CUP PO SCH ×2 (09:00→22:33)
[2023-01-07 09:45] LABS: HEMATOCRIT 25.4 % (35.4-49); HEMOGLOBIN 7.8 GM/dL (11.7-16.9); MCH 24.7 pg (25.7-33.7); MCHC 30.6 g/dl (32.0-35.9); MEAN PLT VOLUME 7.3 fl (7.5-11.1); PLATELET COUNT 618 10^3/uL (134-434); RBC 3.14 M/mm3 (4.00-5.60); WHITE BLOOD COUNT 16.8 K/mm3 (4.0-10.0)
[2023-01-07 10:03] LABS: POTASSIUM 4.8 mmol/L (3.5-5.1)
[2023-01-07 10:04] LABS: CALCIUM 9.2 mg/dL (8.5-10.1)
[2023-01-07 10:05] LABS: BLOOD UREA NITROGEN 30.3 mg/dL (7-18); MAGNESIUM 2.5 mg/dL (1.8-2.4)
[2023-01-07 10:08] LABS: CREATININE 0.8 mg/dL (0.55-1.3); PHOSPHOROUS 4.2 mg/dL (2.5-4.9)
[2023-01-07] MEDS: COLLAGENASE CLOSTRIDIUM HIST. 30 GRAMS TUBE TP SCH (10:22)
[2023-01-07] MEDS: FAMOTIDINE 20 MG/2.5 ML ORAL LIQUID GT SCH (10:22)
[2023-01-07] MEDS: OXYBUTYNIN CHLORIDE 5 MG/5 ML PO SCH ×2 (10:22→22:33)
[2023-01-07] MEDS ORDERED: ACETAMINOPHEN 1000 MG/100 ML BAG IVPB PRN (10:27)
[2023-01-07] MEDS: oxyCODONE HCL 5 MG TABLET GT PRN (10:29)
[2023-01-07] MEDS: SODIUM CHLORIDE FOR INHALATION 3 ML VIAL.NEB IH SCH ×3 (11:52→21:46)
[2023-01-07] MEDS ORDERED: guaiFENesin/D-M SUGAR-FREE/ACLHOL-FREE (200 MG/10 MG) 5 ML PO ONE (20:53)
[2023-01-07] MEDS: ATORVASTATIN CA 10 MG TABLET (FP) GT SCH (22:32)
[2023-01-07] MEDS: MELATONIN 1 MG TABLET GT SCH (22:32)
[2023-01-08] MEDS: guaiFENesin/D-M SUGAR-FREE/ACLHOL-FREE 5 ML UNIT DOSE GT SCH ×2 (02:40→18:05)
[2023-01-08] MEDS: MEROPENEM 1 GM in DEXTROSE 5%-WATER 100 ML IVPB SCH ×3 (02:40→18:12)
[2023-01-08] MEDS: INSULIN SLIDING SCALE (NOVOLOG) 1 VIAL SQ SCH ×4 (06:06→22:28)
[2023-01-08] MEDS: GABAPENTIN 250 MG/5 ML ORAL SOLUTION, 470 ML BOTTLE GT SCH ×3 (06:06→21:20)
[2023-01-08] MEDS: ALBUTEROL SO4 2.5/IPRATROPIUM 0.5 INH SOL 3 ML VIAL.NEB. NEB SCH ×4 (07:15→22:03)
[2023-01-08] MEDS: LINEZOLID 600 MG PREMIX BAG 600 MG/300 ML BAG IVPB SCH ×2 (08:10→20:19)
[2023-01-08] MEDS: AMINO ACIDS/PROTEIN HYDROLYS 30 ML LIQUID.PKT GT SCH ×2 (08:10→18:12)
[2023-01-08] MEDS: SODIUM CHLORIDE FOR INHALATION 3 ML VIAL.NEB IH SCH ×4 (08:12→22:03)
[2023-01-08 09:52] LABS: HEMATOCRIT 24.4 % (35.4-49); HEMOGLOBIN 7.6 GM/dL (11.7-16.9); MCH 25.8 pg (25.7-33.7); MCHC 31.2 g/dl (32.0-35.9); MEAN CELL VOLUME 82.5 fl (80-96); PLATELET COUNT 514 10^3/uL (134-434); RBC 2.95 M/mm3 (4.00-5.60); RDW 21.1 % (11.9-15.9)
[2023-01-08] MEDS: FAMOTIDINE 20 MG/2.5 ML ORAL LIQUID GT SCH (10:01)
[2023-01-08] MEDS: ENOXAPARIN NA (PORCINE) 40 MG/0.4 ML DISP.SYRIN SQ SCH (10:01)
[2023-01-08] MEDS: OXYBUTYNIN CHLORIDE 5 MG/5 ML PO SCH ×2 (10:02→21:20)
[2023-01-08] MEDS: ASCORBIC ACID 500 MG/5 ML UNIT DOSE CUP PO SCH ×2 (10:03→21:19)
[2023-01-08] MEDS: MULTIVIT-MINERALS ORAL LIQUID GT SCH (10:05)
[2023-01-08] MEDS: FLUTICASONE PROP 0.05% 16 GM NASAL SPRAY NS SCH ×2 (10:06→21:23)
[2023-01-08] MEDS: NYSTATIN 100,000 UNIT/GM TOPICAL CREAM 15 GM TUBE TP SCH ×2 (10:07→21:24)
[2023-01-08] MEDS: COLLAGENASE CLOSTRIDIUM HIST. 30 GRAMS TUBE TP SCH (10:08)
[2023-01-08 10:13] LABS: POTASSIUM 4.4 mmol/L (3.5-5.1)
[2023-01-08 10:29] LABS: CALCIUM 9.1 mg/dL (8.5-10.1)
[2023-01-08 10:30] LABS: BLOOD UREA NITROGEN 27.1 mg/dL (7-18)
[2023-01-08 10:32] LABS: CREATININE 0.7 mg/dL (0.55-1.3)
[2023-01-08] MEDS: oxyCODONE HCL 5 MG TABLET GT PRN (21:20)
[2023-01-08] MEDS: MELATONIN 1 MG TABLET GT SCH (21:38)
[2023-01-08] MEDS: ATORVASTATIN CA 10 MG TABLET (FP) GT SCH (21:39)
[2023-01-09] MEDS: MEROPENEM 1 GM in DEXTROSE 5%-WATER 100 ML IVPB SCH ×3 (01:45→17:27)
[2023-01-09] MEDS: GABAPENTIN 250 MG/5 ML ORAL SOLUTION, 470 ML BOTTLE GT SCH ×3 (05:22→22:50)
[2023-01-09] MEDS: INSULIN SLIDING SCALE (NOVOLOG) 1 VIAL SQ SCH ×4 (06:48→22:49)
[2023-01-09] MEDS: ACETAMINOPHEN 1000 MG/100 ML BAG IVPB PRN (06:49)
[2023-01-09] MEDS: AMINO ACIDS/PROTEIN HYDROLYS 30 ML LIQUID.PKT GT SCH ×2 (08:39→17:27)
[2023-01-09] MEDS: ALBUTEROL SO4 2.5/IPRATROPIUM 0.5 INH SOL 3 ML VIAL.NEB. NEB SCH ×4 (08:40→20:20)
[2023-01-09] MEDS: SODIUM CHLORIDE FOR INHALATION 3 ML VIAL.NEB IH SCH ×4 (08:40→20:21)
[2023-01-09] MEDS: OXYBUTYNIN CHLORIDE 5 MG/5 ML PO SCH ×2 (09:05→21:45)
[2023-01-09] MEDS: ENOXAPARIN NA (PORCINE) 40 MG/0.4 ML DISP.SYRIN SQ SCH (09:05)
[2023-01-09] MEDS: FAMOTIDINE 20 MG/2.5 ML ORAL LIQUID GT SCH (09:06)
[2023-01-09] MEDS: ASCORBIC ACID 500 MG/5 ML UNIT DOSE CUP PO SCH ×2 (09:07→21:45)
[2023-01-09] MEDS: MULTIVIT-MINERALS ORAL LIQUID GT SCH (09:07)
[2023-01-09] MEDS: COLLAGENASE CLOSTRIDIUM HIST. 30 GRAMS TUBE TP SCH (09:09)
[2023-01-09] MEDS: NYSTATIN 100,000 UNIT/GM TOPICAL CREAM 15 GM TUBE TP SCH ×2 (09:10→21:48)
[2023-01-09] MEDS: FLUTICASONE PROP 0.05% 16 GM NASAL SPRAY NS SCH ×2 (09:10→21:46)
[2023-01-09] MEDS: LINEZOLID 600 MG PREMIX BAG 600 MG/300 ML BAG IVPB SCH ×2 (09:21→20:45)
[2023-01-09] MEDS: MELATONIN 1 MG TABLET GT SCH (21:45)
[2023-01-09] MEDS: ATORVASTATIN CA 10 MG TABLET (FP) GT SCH (21:45)
[2023-01-10] MEDS: MEROPENEM 1 GM in DEXTROSE 5%-WATER 100 ML IVPB SCH ×3 (02:35→18:04)
[2023-01-10] MEDS: GABAPENTIN 250 MG/5 ML ORAL SOLUTION, 470 ML BOTTLE GT SCH ×3 (06:02→23:31)
[2023-01-10] MEDS: INSULIN SLIDING SCALE (NOVOLOG) 1 VIAL SQ SCH ×4 (06:03→23:47)
[2023-01-10] MEDS ORDERED: guaiFENesin/D-M SUGAR-FREE/ACLHOL-FREE 5 ML UNIT DOSE GT PRN (07:27)
[2023-01-10] MEDS: LINEZOLID 600 MG PREMIX BAG 600 MG/300 ML BAG IVPB SCH ×2 (08:32→21:19)
[2023-01-10] MEDS: AMINO ACIDS/PROTEIN HYDROLYS 30 ML LIQUID.PKT GT SCH ×2 (08:32→16:51)
[2023-01-10] MEDS: SODIUM CHLORIDE FOR INHALATION 3 ML VIAL.NEB IH SCH ×4 (08:43→20:11)
[2023-01-10] MEDS: ALBUTEROL SO4 2.5/IPRATROPIUM 0.5 INH SOL 3 ML VIAL.NEB. NEB SCH ×4 (08:43→20:11)
[2023-01-10 09:50] LABS: HEMATOCRIT 23.1 % (35.4-49); MCH 25.1 pg (25.7-33.7); MCHC 30.3 g/dl (32.0-35.9); MEAN CELL VOLUME 82.6 fl (80-96); MEAN PLT VOLUME 6.9 fl (7.5-11.1); PLATELET COUNT 530 10^3/uL (134-434); RBC 2.79 M/mm3 (4.00-5.60); RDW 21.5 % (11.9-15.9); WHITE BLOOD COUNT 15.5 K/mm3 (4.0-10.0)
[2023-01-10] MEDS: FAMOTIDINE 20 MG/2.5 ML ORAL LIQUID GT SCH (10:21)
[2023-01-10] MEDS: ENOXAPARIN NA (PORCINE) 40 MG/0.4 ML DISP.SYRIN SQ SCH (10:21)
[2023-01-10] MEDS: OXYBUTYNIN CHLORIDE 5 MG/5 ML PO SCH ×2 (10:23→23:27)
[2023-01-10] MEDS: MULTIVIT-MINERALS ORAL LIQUID GT SCH (10:24)
[2023-01-10] MEDS: NYSTATIN 100,000 UNIT/GM TOPICAL CREAM 15 GM TUBE TP SCH ×2 (10:25→23:42)
[2023-01-10] MEDS: COLLAGENASE CLOSTRIDIUM HIST. 30 GRAMS TUBE TP SCH (10:25)
[2023-01-10] MEDS: FLUTICASONE PROP 0.05% 16 GM NASAL SPRAY NS SCH ×2 (10:26→23:42)
[2023-01-10] MEDS: ASCORBIC ACID 500 MG/5 ML UNIT DOSE CUP PO SCH ×2 (11:05→23:27)
[2023-01-10 11:07] LABS: ANISOCYTOSIS 3+; MACROCYTOSIS 0
[2023-01-10 11:09] LABS: ALBUMIN 1.1 g/dl (3.4-5.0); BILIRUBIN,TOTAL 0.2 mg/dL (0.2-1); BLOOD UREA NITROGEN 33.2 mg/dL (7-18); CALCIUM 8.9 mg/dL (8.5-10.1); CREATININE 0.6 mg/dL (0.55-1.3); TOT PROT 6.6 g/dl (6.4-8.2)
[2023-01-10] MEDS: ATORVASTATIN CA 10 MG TABLET (FP) GT SCH (23:27)
[2023-01-10] MEDS: MELATONIN 1 MG TABLET GT SCH (23:27)
[2023-01-11] MEDS: ACETAMINOPHEN 1000 MG/100 ML BAG IVPB PRN (00:41)
[2023-01-11] MEDS: MEROPENEM 1 GM in DEXTROSE 5%-WATER 100 ML IVPB SCH ×3 (02:48→18:13)
[2023-01-11] MEDS: GABAPENTIN 250 MG/5 ML ORAL SOLUTION, 470 ML BOTTLE GT SCH ×3 (07:10→22:53)
[2023-01-11] MEDS: INSULIN SLIDING SCALE (NOVOLOG) 1 VIAL SQ SCH ×3 (07:25→16:24)
[2023-01-11] MEDS: AMINO ACIDS/PROTEIN HYDROLYS 30 ML LIQUID.PKT GT SCH ×2 (08:02→18:13)
[2023-01-11] MEDS: LINEZOLID 600 MG PREMIX BAG 600 MG/300 ML BAG IVPB SCH ×2 (08:02→21:01)
[2023-01-11] MEDS: ALBUTEROL SO4 2.5/IPRATROPIUM 0.5 INH SOL 3 ML VIAL.NEB. NEB SCH ×4 (08:42→20:05)
[2023-01-11] MEDS: SODIUM CHLORIDE FOR INHALATION 3 ML VIAL.NEB IH SCH ×4 (08:43→20:05)
[2023-01-11] MEDS ORDERED: INSULIN (NOVOLOG) ASPART 100 UNITS/ML 10ML VIAL ONE (10:00)
[2023-01-11 10:12] LABS: HEMATOCRIT 26.2 % (35.4-49); HEMOGLOBIN 7.9 GM/dL (11.7-16.9); MCH 25.2 pg (25.7-33.7); MCHC 30.3 g/dl (32.0-35.9); MEAN CELL VOLUME 83.3 fl (80-96); PLATELET COUNT 559 10^3/uL (134-434); RBC 3.15 M/mm3 (4.00-5.60); RDW 21.7 % (11.9-15.9); WHITE BLOOD COUNT 13.3 K/mm3 (4.0-10.0)
[2023-01-11] MEDS: ENOXAPARIN NA (PORCINE) 40 MG/0.4 ML DISP.SYRIN SQ SCH (10:19)
[2023-01-11] MEDS: MULTIVIT-MINERALS ORAL LIQUID GT SCH (10:21)
[2023-01-11] MEDS: ASCORBIC ACID 500 MG/5 ML UNIT DOSE CUP PO SCH ×2 (10:21→22:53)
[2023-01-11] MEDS: FAMOTIDINE 20 MG/2.5 ML ORAL LIQUID GT SCH (10:22)
[2023-01-11] MEDS: OXYBUTYNIN CHLORIDE 5 MG/5 ML PO SCH ×2 (10:22→23:00)
[2023-01-11] MEDS: COLLAGENASE CLOSTRIDIUM HIST. 30 GRAMS TUBE TP SCH (10:26)
[2023-01-11 10:30] LABS: POTASSIUM 5.2 mmol/L (3.5-5.1)
[2023-01-11] MEDS: FLUTICASONE PROP 0.05% 16 GM NASAL SPRAY NS SCH ×2 (10:30→22:56)
[2023-01-11] MEDS: NYSTATIN 100,000 UNIT/GM TOPICAL CREAM 15 GM TUBE TP SCH ×2 (10:30→22:54)
[2023-01-11 10:33] LABS: BLOOD UREA NITROGEN 28.8 mg/dL (7-18); CALCIUM 8.4 mg/dL (8.5-10.1)
[2023-01-11 10:37] LABS: CREATININE 0.6 mg/dL (0.55-1.3)
[2023-01-11] MEDS: MELATONIN 1 MG TABLET GT SCH (22:46)
[2023-01-11] MEDS: ATORVASTATIN CA 10 MG TABLET (FP) GT SCH (22:46)
[2023-01-12] MEDS: INSULIN SLIDING SCALE (NOVOLOG) 1 VIAL SQ SCH ×4 (00:07→17:46)
[2023-01-12] MEDS: MEROPENEM 1 GM in DEXTROSE 5%-WATER 100 ML IVPB SCH ×3 (01:33→17:14)
[2023-01-12] MEDS: GABAPENTIN 250 MG/5 ML ORAL SOLUTION, 470 ML BOTTLE GT SCH ×3 (06:43→23:00)
[2023-01-12] MEDS: ALBUTEROL SO4 2.5/IPRATROPIUM 0.5 INH SOL 3 ML VIAL.NEB. NEB SCH ×4 (07:35→20:05)
[2023-01-12] MEDS: SODIUM CHLORIDE FOR INHALATION 3 ML VIAL.NEB IH SCH ×4 (07:35→20:05)
[2023-01-12] MEDS: MULTIVIT-MINERALS ORAL LIQUID GT SCH (10:44)
[2023-01-12] MEDS: LINEZOLID 600 MG PREMIX BAG 600 MG/300 ML BAG IVPB SCH ×2 (10:44→21:59)
[2023-01-12] MEDS: ASCORBIC ACID 500 MG/5 ML UNIT DOSE CUP PO SCH ×2 (10:44→22:04)
[2023-01-12] MEDS: ENOXAPARIN NA (PORCINE) 40 MG/0.4 ML DISP.SYRIN SQ SCH (10:44)
[2023-01-12] MEDS: AMINO ACIDS/PROTEIN HYDROLYS 30 ML LIQUID.PKT GT SCH ×2 (10:45→17:15)
[2023-01-12 11:25] LABS: HEMATOCRIT 24.2 % (35.4-49); HEMOGLOBIN 7.4 GM/dL (11.7-16.9); MCH 25.4 pg (25.7-33.7); MCHC 30.6 g/dl (32.0-35.9); MEAN CELL VOLUME 82.8 fl (80-96); MEAN PLT VOLUME 6.9 fl (7.5-11.1); PLATELET COUNT 528 10^3/uL (134-434); RBC 2.93 M/mm3 (4.00-5.60); RDW 22.1 % (11.9-15.9); WHITE BLOOD COUNT 13.2 K/mm3 (4.0-10.0)
[2023-01-12] MEDS: OXYBUTYNIN CHLORIDE 5 MG/5 ML PO SCH ×2 (11:30→22:05)
[2023-01-12] MEDS: FAMOTIDINE 20 MG/2.5 ML ORAL LIQUID GT SCH (11:30)
[2023-01-12] MEDS: NYSTATIN 100,000 UNIT/GM TOPICAL CREAM 15 GM TUBE TP SCH ×2 (11:30→23:04)
[2023-01-12] MEDS: COLLAGENASE CLOSTRIDIUM HIST. 30 GRAMS TUBE TP SCH (11:31)
[2023-01-12] MEDS: FLUTICASONE PROP 0.05% 16 GM NASAL SPRAY NS SCH ×2 (11:31→22:01)
[2023-01-12 11:54] LABS: POTASSIUM 5.1 mmol/L (3.5-5.1)
[2023-01-12 11:58] LABS: ALBUMIN 1.1 g/dl (3.4-5.0)
[2023-01-12 11:59] LABS: BLOOD UREA NITROGEN 26.1 mg/dL (7-18); CALCIUM 8.3 mg/dL (8.5-10.1); MAGNESIUM 2.3 mg/dL (1.8-2.4)
[2023-01-12 12:02] LABS: CREATININE 0.6 mg/dL (0.55-1.3)
[2023-01-12 12:03] LABS: BILIRUBIN,TOTAL 0.1 mg/dL (0.2-1); TOT PROT 6.9 g/dl (6.4-8.2)
[2023-01-12] MEDS ORDERED: INSULIN (NOVOLOG) ASPART 100 UNITS/ML 10ML VIAL ONE (12:12)
[2023-01-12] MEDS ORDERED: MEROPENEM 1 GM VIAL (RESTRICTED TO ID) IVPB ONE (16:22)
[2023-01-12] MEDS: ATORVASTATIN CA 10 MG TABLET (FP) GT SCH (22:01)
[2023-01-12] MEDS: MELATONIN 1 MG TABLET GT SCH (22:01)
[2023-01-13] MEDS: INSULIN SLIDING SCALE (NOVOLOG) 1 VIAL SQ SCH ×5 (01:06→23:19)
[2023-01-13 01:18] LABS: VENOUS BASE EXCESS 10.8 mmol/L (-2-2); VENOUS O2 SATURATION 99.4 % (70-80); VENOUS PCO2 49.5 mmHg (38-52); VENOUS PH 7.474 (7.310-7.410)
[2023-01-13] MEDS: MEROPENEM 1 GM in DEXTROSE 5%-WATER 100 ML IVPB SCH ×3 (01:51→18:45)
[2023-01-13] MEDS: ALBUTEROL SO4 2.5/IPRATROPIUM 0.5 INH SOL 3 ML VIAL.NEB. NEB SCH ×4 (07:18→20:50)
[2023-01-13] MEDS: SODIUM CHLORIDE FOR INHALATION 3 ML VIAL.NEB IH SCH ×4 (07:18→20:50)
[2023-01-13] MEDS: GABAPENTIN 250 MG/5 ML ORAL SOLUTION, 470 ML BOTTLE GT SCH ×3 (08:01→23:20)
[2023-01-13 09:56] LABS: HEMATOCRIT 22.8 % (35.4-49); HEMOGLOBIN 7.3 GM/dL (11.7-16.9); MCH 26.3 pg (25.7-33.7); MCHC 32.1 g/dl (32.0-35.9); MEAN PLT VOLUME 6.4 fl (7.5-11.1); PLATELET COUNT 530 10^3/uL (134-434); RBC 2.78 M/mm3 (4.00-5.60); RDW 22.4 % (11.9-15.9)
[2023-01-13 11:03] LABS: CALCIUM 8.4 mg/dL (8.5-10.1)
[2023-01-13 11:06] LABS: BLOOD UREA NITROGEN 26.5 mg/dL (7-18)
[2023-01-13 11:09] LABS: CREATININE 0.6 mg/dL (0.55-1.3)
[2023-01-13] MEDS: LINEZOLID 600 MG PREMIX BAG 600 MG/300 ML BAG IVPB SCH ×2 (11:19→23:28)
[2023-01-13] MEDS: AMINO ACIDS/PROTEIN HYDROLYS 30 ML LIQUID.PKT GT SCH ×2 (11:20→17:35)
[2023-01-13] MEDS: ENOXAPARIN NA (PORCINE) 40 MG/0.4 ML DISP.SYRIN SQ SCH (11:21)
[2023-01-13] MEDS: MULTIVIT-MINERALS ORAL LIQUID GT SCH (11:21)
[2023-01-13] MEDS: OXYBUTYNIN CHLORIDE 5 MG/5 ML PO SCH ×2 (11:22→23:38)
[2023-01-13] MEDS: FLUTICASONE PROP 0.05% 16 GM NASAL SPRAY NS SCH ×2 (11:23→23:38)
[2023-01-13] MEDS: ASCORBIC ACID 500 MG/5 ML UNIT DOSE CUP PO SCH ×2 (11:23→23:20)
[2023-01-13] MEDS: FAMOTIDINE 20 MG/2.5 ML ORAL LIQUID GT SCH (11:23)
[2023-01-13] MEDS: NYSTATIN 100,000 UNIT/GM TOPICAL CREAM 15 GM TUBE TP SCH ×2 (11:25→23:39)
[2023-01-13] MEDS: COLLAGENASE CLOSTRIDIUM HIST. 30 GRAMS TUBE TP SCH (11:26)
[2023-01-13] MEDS: oxyCODONE HCL 5 MG TABLET GT PRN ×2 (12:11→23:23)
[2023-01-13] MEDS ORDERED: INSULIN (NOVOLOG) ASPART 100 UNITS/ML 10ML VIAL ONE (23:05)
[2023-01-13] MEDS: MELATONIN 1 MG TABLET GT SCH (23:22)
[2023-01-13] MEDS: ATORVASTATIN CA 10 MG TABLET (FP) GT SCH (23:26)
[2023-01-14] MEDS: MEROPENEM 1 GM in DEXTROSE 5%-WATER 100 ML IVPB SCH ×3 (03:19→17:01)
[2023-01-14] MEDS: GABAPENTIN 250 MG/5 ML ORAL SOLUTION, 470 ML BOTTLE GT SCH ×3 (06:41→22:22)
[2023-01-14] MEDS: INSULIN SLIDING SCALE (NOVOLOG) 1 VIAL SQ SCH ×3 (06:48→16:52)
[2023-01-14] MEDS: SODIUM CHLORIDE FOR INHALATION 3 ML VIAL.NEB IH SCH ×4 (07:43→20:24)
[2023-01-14] MEDS: ALBUTEROL SO4 2.5/IPRATROPIUM 0.5 INH SOL 3 ML VIAL.NEB. NEB SCH ×4 (07:43→20:23)
[2023-01-14] MEDS: LINEZOLID 600 MG PREMIX BAG 600 MG/300 ML BAG IVPB SCH ×2 (09:54→23:26)
[2023-01-14] MEDS: ENOXAPARIN NA (PORCINE) 40 MG/0.4 ML DISP.SYRIN SQ SCH (09:59)
[2023-01-14] MEDS: AMINO ACIDS/PROTEIN HYDROLYS 30 ML LIQUID.PKT GT SCH ×2 (09:59→16:44)
[2023-01-14] MEDS: OXYBUTYNIN CHLORIDE 5 MG/5 ML PO SCH ×2 (10:00→22:22)
[2023-01-14] MEDS: MULTIVIT-MINERALS ORAL LIQUID GT SCH (10:00)
[2023-01-14] MEDS: ASCORBIC ACID 500 MG/5 ML UNIT DOSE CUP PO SCH ×2 (10:00→22:22)
[2023-01-14] MEDS: FLUTICASONE PROP 0.05% 16 GM NASAL SPRAY NS SCH ×2 (10:01→21:51)
[2023-01-14] MEDS: COLLAGENASE CLOSTRIDIUM HIST. 30 GRAMS TUBE TP SCH (10:01)
[2023-01-14] MEDS: NYSTATIN 100,000 UNIT/GM TOPICAL CREAM 15 GM TUBE TP SCH ×2 (10:01→21:52)
[2023-01-14 10:02] LABS: HEMATOCRIT 21.7 % (35.4-49); MCH 26.1 pg (25.7-33.7); MCHC 31.3 g/dl (32.0-35.9); MEAN CELL VOLUME 83.6 fl (80-96); MEAN PLT VOLUME 6.7 fl (7.5-11.1); PLATELET COUNT 506 10^3/uL (134-434); RDW 22.3 % (11.9-15.9)
[2023-01-14] MEDS: FAMOTIDINE 20 MG/2.5 ML ORAL LIQUID GT SCH (10:14)
[2023-01-14 10:21] LABS: HEMOGLOBIN 6.8 GM/dL (11.7-16.9)
[2023-01-14 10:23] LABS: POTASSIUM 4.9 mmol/L (3.5-5.1)
[2023-01-14 10:24] LABS: CALCIUM 8.2 mg/dL (8.5-10.1)
[2023-01-14 10:28] LABS: CREATININE 0.6 mg/dL (0.55-1.3)
[2023-01-14] MEDS: ACETAMINOPHEN 1000 MG/100 ML BAG IVPB PRN (15:36)
[2023-01-14] MEDS: MELATONIN 1 MG TABLET GT SCH (22:22)
[2023-01-14] MEDS: ATORVASTATIN CA 10 MG TABLET (FP) GT SCH (22:22)
[2023-01-15] MEDS: INSULIN SLIDING SCALE (NOVOLOG) 1 VIAL SQ SCH ×5 (00:49→23:54)
[2023-01-15] MEDS: MEROPENEM 1 GM in DEXTROSE 5%-WATER 100 ML IVPB SCH ×3 (05:31→17:28)
[2023-01-15] MEDS: GABAPENTIN 250 MG/5 ML ORAL SOLUTION, 470 ML BOTTLE GT SCH ×2 (07:05→14:34)
[2023-01-15] MEDS: ALBUTEROL SO4 2.5/IPRATROPIUM 0.5 INH SOL 3 ML VIAL.NEB. NEB SCH ×4 (08:30→20:17)
[2023-01-15] MEDS: SODIUM CHLORIDE FOR INHALATION 3 ML VIAL.NEB IH SCH ×4 (08:35→20:17)
[2023-01-15 09:44] LABS: HEMATOCRIT 26.5 % (35.4-49); HEMOGLOBIN 8.2 GM/dL (11.7-16.9); MCH 26.2 pg (25.7-33.7); MEAN CELL VOLUME 84.3 fl (80-96); MEAN PLT VOLUME 6.9 fl (7.5-11.1); PLATELET COUNT 536 10^3/uL (134-434); RBC 3.14 M/mm3 (4.00-5.60); RDW 20.8 % (11.9-15.9); WHITE BLOOD COUNT 15.4 K/mm3 (4.0-10.0)
[2023-01-15 10:00] LABS: POTASSIUM 4.6 mmol/L (3.5-5.1)
[2023-01-15 10:07] LABS: ALBUMIN 1.2 g/dl (3.4-5.0); BLOOD UREA NITROGEN 27.7 mg/dL (7-18); MAGNESIUM 2.3 mg/dL (1.8-2.4)
[2023-01-15 10:10] LABS: CREATININE 0.6 mg/dL (0.55-1.3); PHOSPHOROUS 3.2 mg/dL (2.5-4.9)
[2023-01-15 10:11] LABS: TOT PROT 6.6 g/dl (6.4-8.2)
[2023-01-15 10:12] LABS: BILIRUBIN,TOTAL 0.2 mg/dL (0.2-1)
[2023-01-15] MEDS: FLUTICASONE PROP 0.05% 16 GM NASAL SPRAY NS SCH ×2 (11:18→23:36)
[2023-01-15] MEDS: COLLAGENASE CLOSTRIDIUM HIST. 30 GRAMS TUBE TP SCH (11:18)
[2023-01-15] MEDS: MULTIVIT-MINERALS ORAL LIQUID GT SCH (11:19)
[2023-01-15] MEDS: ENOXAPARIN NA (PORCINE) 40 MG/0.4 ML DISP.SYRIN SQ SCH (11:19)
[2023-01-15] MEDS: AMINO ACIDS/PROTEIN HYDROLYS 30 ML LIQUID.PKT GT SCH ×2 (11:19→17:28)
[2023-01-15] MEDS: ASCORBIC ACID 500 MG/5 ML UNIT DOSE CUP PO SCH ×2 (11:19→23:36)
[2023-01-15] MEDS: NYSTATIN 100,000 UNIT/GM TOPICAL CREAM 15 GM TUBE TP SCH ×2 (11:19→23:36)
[2023-01-15] MEDS: OXYBUTYNIN CHLORIDE 5 MG/5 ML PO SCH ×2 (11:19→23:36)
[2023-01-15] MEDS: FAMOTIDINE 20 MG/2.5 ML ORAL LIQUID GT SCH (11:23)
[2023-01-15] MEDS: LINEZOLID 600 MG PREMIX BAG 600 MG/300 ML BAG IVPB SCH ×2 (12:09→20:06)
[2023-01-15] MEDS: FUROSEMIDE 40 MG/4 ML INJECTABLE VIAL IVPUSH SCH (17:28)
[2023-01-15] MEDS: MELATONIN 1 MG TABLET GT SCH (23:36)
[2023-01-15] MEDS: ATORVASTATIN CA 10 MG TABLET (FP) GT SCH (23:36)
[2023-01-16] MEDS: GABAPENTIN 250 MG/5 ML ORAL SOLUTION, 470 ML BOTTLE GT SCH ×4 (00:05→22:22)
[2023-01-16] MEDS: MEROPENEM 1 GM in DEXTROSE 5%-WATER 100 ML IVPB SCH ×3 (02:36→17:40)
[2023-01-16] MEDS: INSULIN SLIDING SCALE (NOVOLOG) 1 VIAL SQ SCH ×3 (06:54→17:02)
[2023-01-16] MEDS: ALBUTEROL SO4 2.5/IPRATROPIUM 0.5 INH SOL 3 ML VIAL.NEB. NEB SCH ×2 (07:40→11:25)
[2023-01-16] MEDS: SODIUM CHLORIDE FOR INHALATION 3 ML VIAL.NEB IH SCH ×4 (07:50→20:29)
[2023-01-16] MEDS: AMINO ACIDS/PROTEIN HYDROLYS 30 ML LIQUID.PKT GT SCH ×2 (08:55→17:39)
[2023-01-16] MEDS: LINEZOLID 600 MG PREMIX BAG 600 MG/300 ML BAG IVPB SCH (09:00)
[2023-01-16 09:19] LABS: BASO % 0.6 % (0-2.0); EOS % 2.2 % (0-4.5); HEMATOCRIT 25.6 % (35.4-49); HEMOGLOBIN 8.5 GM/dL (11.7-16.9); LYMPH % 6.4 % (8-40); MCH 28.1 pg (25.7-33.7); MCHC 33.1 g/dl (32.0-35.9); MEAN PLT VOLUME 6.5 fl (7.5-11.1); NEUT % 81.8 % (42.8-82.8); PLATELET COUNT 492 10^3/uL (134-434); RBC 3.01 M/mm3 (4.00-5.60); RDW 22.3 % (11.9-15.9); WHITE BLOOD COUNT 15.4 K/mm3 (4.0-10.0)
[2023-01-16 09:40] LABS: POTASSIUM 4.4 mmol/L (3.5-5.1)
[2023-01-16 09:42] LABS: CALCIUM 8.1 mg/dL (8.5-10.1)
[2023-01-16 09:43] LABS: ALBUMIN 1.2 g/dl (3.4-5.0); BLOOD UREA NITROGEN 27.1 mg/dL (7-18)
[2023-01-16 09:46] LABS: CREATININE 0.7 mg/dL (0.55-1.3)
[2023-01-16 09:47] LABS: BILIRUBIN,TOTAL 0.2 mg/dL (0.2-1); TOT PROT 6.8 g/dl (6.4-8.2)
[2023-01-16 09:50] LABS: ANISOCYTOSIS 3+; MACROCYTOSIS 0
[2023-01-16] MEDS: FLUTICASONE PROP 0.05% 16 GM NASAL SPRAY NS SCH ×2 (10:00→22:24)
[2023-01-16] MEDS: ENOXAPARIN NA (PORCINE) 40 MG/0.4 ML DISP.SYRIN SQ SCH (10:39)
[2023-01-16] MEDS: FUROSEMIDE 40 MG/4 ML INJECTABLE VIAL IVPUSH SCH (10:40)
[2023-01-16] MEDS: FAMOTIDINE 20 MG/2.5 ML ORAL LIQUID GT SCH (10:40)
[2023-01-16] MEDS: MULTIVIT-MINERALS ORAL LIQUID GT SCH (10:41)
[2023-01-16] MEDS: OXYBUTYNIN CHLORIDE 5 MG/5 ML PO SCH ×2 (10:41→22:22)
[2023-01-16] MEDS: ASCORBIC ACID 500 MG/5 ML UNIT DOSE CUP PO SCH ×2 (10:41→22:22)
[2023-01-16] MEDS: NYSTATIN 100,000 UNIT/GM TOPICAL CREAM 15 GM TUBE TP SCH ×2 (15:55→22:24)
[2023-01-16] MEDS: COLLAGENASE CLOSTRIDIUM HIST. 30 GRAMS TUBE TP SCH (15:56)
[2023-01-16] MEDS: MELATONIN 1 MG TABLET GT SCH (22:22)
[2023-01-16] MEDS: ATORVASTATIN CA 10 MG TABLET (FP) GT SCH (22:22)
[2023-01-16] MEDS: AMINO ACIDS 4.25%/D5W 1,000 ML IV SCH (22:23)
[2023-01-17] MEDS: INSULIN SLIDING SCALE (NOVOLOG) 1 VIAL SQ SCH ×5 (00:01→22:12)
[2023-01-17] MEDS: MEROPENEM 1 GM in DEXTROSE 5%-WATER 100 ML IVPB SCH ×3 (01:58→18:16)
[2023-01-17] MEDS: GABAPENTIN 250 MG/5 ML ORAL SOLUTION, 470 ML BOTTLE GT SCH ×3 (06:17→22:29)
[2023-01-17] MEDS: SODIUM CHLORIDE FOR INHALATION 3 ML VIAL.NEB IH SCH ×4 (07:41→20:07)
[2023-01-17 11:02] LABS: HEMATOCRIT 29.7 % (35.4-49); HEMOGLOBIN 9.4 GM/dL (11.7-16.9); MCH 26.5 pg (25.7-33.7); MCHC 31.5 g/dl (32.0-35.9); MEAN CELL VOLUME 84.1 fl (80-96); MEAN PLT VOLUME 6.7 fl (7.5-11.1); PLATELET COUNT 624 10^3/uL (134-434); RBC 3.54 M/mm3 (4.00-5.60); RDW 22.9 % (11.9-15.9); WHITE BLOOD COUNT 20.1 K/mm3 (4.0-10.0)
[2023-01-17] MEDS: AMINO ACIDS/PROTEIN HYDROLYS 30 ML LIQUID.PKT GT SCH ×2 (11:05→17:58)
[2023-01-17] MEDS: OXYBUTYNIN CHLORIDE 5 MG/5 ML PO SCH ×2 (11:05→22:29)
[2023-01-17] MEDS: FAMOTIDINE 20 MG/2.5 ML ORAL LIQUID GT SCH (11:05)
[2023-01-17] MEDS: MULTIVIT-MINERALS ORAL LIQUID GT SCH (11:05)
[2023-01-17] MEDS: ASCORBIC ACID 500 MG/5 ML UNIT DOSE CUP PO SCH ×2 (11:06→22:29)
[2023-01-17] MEDS: FLUTICASONE PROP 0.05% 16 GM NASAL SPRAY NS SCH ×2 (11:11→22:13)
[2023-01-17] MEDS: FUROSEMIDE 40 MG/4 ML INJECTABLE VIAL IVPUSH SCH (11:11)
[2023-01-17] MEDS: NYSTATIN 100,000 UNIT/GM TOPICAL CREAM 15 GM TUBE TP SCH ×2 (11:12→22:08)
[2023-01-17] MEDS: COLLAGENASE CLOSTRIDIUM HIST. 30 GRAMS TUBE TP SCH (11:12)
[2023-01-17 11:29] LABS: ALBUMIN 1.3 g/dl (3.4-5.0); CALCIUM 8.9 mg/dL (8.5-10.1)
[2023-01-17 11:30] LABS: ANISOCYTOSIS 2+; MACROCYTOSIS 0
[2023-01-17 11:32] LABS: CREATININE 0.6 mg/dL (0.55-1.3)
[2023-01-17 11:34] LABS: BILIRUBIN,TOTAL 0.4 mg/dL (0.2-1)
[2023-01-17 11:43] LABS: TOT PROT 7.3 g/dl (6.4-8.2)
[2023-01-17] MEDS ORDERED: ACETYLCYSTEINE 20% 200MG/ML 4 ML VIAL *FOR ORAL / INH USE ONLY NEB ONE (14:36)
[2023-01-17] MEDS ORDERED: ALBUTEROL SO4 2.5/IPRATROPIUM 0.5 INH SOL 3 ML VIAL.NEB. NEB SCH (16:00)
[2023-01-17] MEDS: AMINO ACIDS 4.25%/D5W 1,000 ML IV SCH (18:16)
[2023-01-17] MEDS: LEVALBUTEROL HCL 0.31 MG/3 ML VIAL.NEB IH SCH (20:07)
[2023-01-17] MEDS: MELATONIN 1 MG TABLET GT SCH (22:28)
[2023-01-17] MEDS: ATORVASTATIN CA 10 MG TABLET (FP) GT SCH (22:29)
[2023-01-18] MEDS: MEROPENEM 1 GM in DEXTROSE 5%-WATER 100 ML IVPB SCH ×3 (01:48→18:25)
[2023-01-18] MEDS: GABAPENTIN 250 MG/5 ML ORAL SOLUTION, 470 ML BOTTLE GT SCH ×3 (06:01→22:16)
[2023-01-18] MEDS: INSULIN SLIDING SCALE (NOVOLOG) 1 VIAL SQ SCH ×4 (06:02→22:43)
[2023-01-18] MEDS: SODIUM CHLORIDE FOR INHALATION 3 ML VIAL.NEB IH SCH ×4 (07:15→20:33)
[2023-01-18] MEDS: LEVALBUTEROL HCL 0.31 MG/3 ML VIAL.NEB IH SCH ×2 (07:15→15:31)
[2023-01-18 09:20] LABS: HEMATOCRIT 27.1 % (35.4-49); HEMOGLOBIN 8.7 GM/dL (11.7-16.9); MCH 27.2 pg (25.7-33.7); MCHC 31.9 g/dl (32.0-35.9); MEAN PLT VOLUME 6.6 fl (7.5-11.1); PLATELET COUNT 502 10^3/uL (134-434); RBC 3.19 M/mm3 (4.00-5.60); RDW 23.5 % (11.9-15.9); WHITE BLOOD COUNT 17.8 K/mm3 (4.0-10.0)
[2023-01-18 10:01] LABS: POTASSIUM 3.9 mmol/L (3.5-5.1)
[2023-01-18 10:02] LABS: BLOOD UREA NITROGEN 31.5 mg/dL (7-18); CALCIUM 8.5 mg/dL (8.5-10.1); MAGNESIUM 2.4 mg/dL (1.8-2.4)
[2023-01-18 10:06] LABS: CREATININE 0.6 mg/dL (0.55-1.3); PHOSPHOROUS 3.6 mg/dL (2.5-4.9)
[2023-01-18] MEDS: FUROSEMIDE 40 MG/4 ML INJECTABLE VIAL IVPUSH SCH (10:16)
[2023-01-18] MEDS: AMINO ACIDS/PROTEIN HYDROLYS 30 ML LIQUID.PKT GT SCH ×2 (10:16→18:25)
[2023-01-18] MEDS: FAMOTIDINE 20 MG/2.5 ML ORAL LIQUID GT SCH (10:16)
[2023-01-18] MEDS: OXYBUTYNIN CHLORIDE 5 MG/5 ML PO SCH ×2 (10:16→22:16)
[2023-01-18] MEDS: MULTIVIT-MINERALS ORAL LIQUID GT SCH (10:17)
[2023-01-18] MEDS: ASCORBIC ACID 500 MG/5 ML UNIT DOSE CUP PO SCH ×2 (10:17→22:17)
[2023-01-18] MEDS: FLUTICASONE PROP 0.05% 16 GM NASAL SPRAY NS SCH ×2 (10:18→22:16)
[2023-01-18] MEDS: ACETAMINOPHEN 1000 MG/100 ML BAG IVPB PRN ×2 (13:24→22:13)
[2023-01-18] MEDS: COLLAGENASE CLOSTRIDIUM HIST. 30 GRAMS TUBE TP SCH (13:26)
[2023-01-18] MEDS: NYSTATIN 100,000 UNIT/GM TOPICAL CREAM 15 GM TUBE TP SCH ×2 (13:26→22:16)
[2023-01-18] MEDS: MELATONIN 1 MG TABLET GT SCH (22:15)
[2023-01-18] MEDS: ATORVASTATIN CA 10 MG TABLET (FP) GT SCH (22:15)
[2023-01-19] MEDS: MEROPENEM 1 GM in DEXTROSE 5%-WATER 100 ML IVPB SCH ×3 (01:24→17:34)
[2023-01-19] MEDS: GABAPENTIN 250 MG/5 ML ORAL SOLUTION, 470 ML BOTTLE GT SCH ×3 (06:07→21:50)
[2023-01-19] MEDS: INSULIN SLIDING SCALE (NOVOLOG) 1 VIAL SQ SCH ×4 (06:08→21:50)
[2023-01-19] MEDS: SODIUM CHLORIDE FOR INHALATION 3 ML VIAL.NEB IH SCH ×4 (08:42→20:06)
[2023-01-19] MEDS: COLLAGENASE CLOSTRIDIUM HIST. 30 GRAMS TUBE TP SCH (10:00)
[2023-01-19] MEDS: ACETAMINOPHEN 1000 MG/100 ML BAG IVPB PRN (10:00)
[2023-01-19] MEDS: AMINO ACIDS/PROTEIN HYDROLYS 30 ML LIQUID.PKT GT SCH ×2 (10:02→17:34)
[2023-01-19] MEDS: FLUTICASONE PROP 0.05% 16 GM NASAL SPRAY NS SCH ×2 (10:03→21:46)
[2023-01-19] MEDS: FUROSEMIDE 40 MG/4 ML INJECTABLE VIAL IVPUSH SCH (10:03)
[2023-01-19] MEDS: NYSTATIN 100,000 UNIT/GM TOPICAL CREAM 15 GM TUBE TP SCH ×2 (10:03→21:47)
[2023-01-19] MEDS: ENOXAPARIN NA (PORCINE) 40 MG/0.4 ML DISP.SYRIN SQ SCH (10:03)
[2023-01-19 11:02] LABS: BASO % 0.6 % (0-2.0); EOS % 2.9 % (0-4.5); HEMATOCRIT 26.8 % (35.4-49); HEMOGLOBIN 8.3 GM/dL (11.7-16.9); LYMPH % 7.3 % (8-40); MCH 26.9 pg (25.7-33.7); MCHC 30.9 g/dl (32.0-35.9); MEAN PLT VOLUME 6.9 fl (7.5-11.1); MONO % 9.8 % (3.8-10.2); NEUT % 79.4 % (42.8-82.8); PLATELET COUNT 543 10^3/uL (134-434); RBC 3.08 M/mm3 (4.00-5.60); RDW 22.7 % (11.9-15.9); WHITE BLOOD COUNT 14.8 K/mm3 (4.0-10.0)
[2023-01-19] MEDS: MULTIVIT-MINERALS ORAL LIQUID GT SCH (11:22)
[2023-01-19] MEDS: OXYBUTYNIN CHLORIDE 5 MG/5 ML PO SCH ×2 (11:22→21:47)
[2023-01-19] MEDS: FAMOTIDINE 20 MG/2.5 ML ORAL LIQUID GT SCH (11:22)
[2023-01-19] MEDS: ASCORBIC ACID 500 MG/5 ML UNIT DOSE CUP PO SCH ×2 (11:22→21:47)
[2023-01-19 11:25] LABS: POTASSIUM 4.1 mmol/L (3.5-5.1)
[2023-01-19 11:51] LABS: CALCIUM 8.2 mg/dL (8.5-10.1)
[2023-01-19 11:52] LABS: BLOOD UREA NITROGEN 33.2 mg/dL (7-18); MAGNESIUM 2.2 mg/dL (1.8-2.4)
[2023-01-19 11:55] LABS: CREATININE 0.6 mg/dL (0.55-1.3); PHOSPHOROUS 3.8 mg/dL (2.5-4.9)
[2023-01-19] MEDS ORDERED: INSULIN (NOVOLOG) ASPART 100 UNITS/ML 10ML VIAL ONE (13:03)
[2023-01-19] MEDS: MELATONIN 1 MG TABLET GT SCH (21:42)
[2023-01-19] MEDS: ATORVASTATIN CA 10 MG TABLET (FP) GT SCH (21:42)
[2023-01-19] MEDS: LEVALBUTEROL HCL 0.31 MG/3 ML VIAL.NEB IH PRN (23:40)
[2023-01-20] MEDS: MEROPENEM 1 GM in DEXTROSE 5%-WATER 100 ML IVPB SCH ×3 (02:26→19:25)
[2023-01-20] MEDS: INSULIN SLIDING SCALE (NOVOLOG) 1 VIAL SQ SCH ×4 (06:54→23:12)
[2023-01-20] MEDS: GABAPENTIN 250 MG/5 ML ORAL SOLUTION, 470 ML BOTTLE GT SCH ×3 (06:54→22:14)
[2023-01-20] MEDS: SODIUM CHLORIDE FOR INHALATION 3 ML VIAL.NEB IH SCH ×4 (08:00→20:22)
[2023-01-20 10:04] LABS: HEMATOCRIT 28.5 % (35.4-49); HEMOGLOBIN 8.7 GM/dL (11.7-16.9); MCH 26.7 pg (25.7-33.7); MCHC 30.5 g/dl (32.0-35.9); MEAN CELL VOLUME 87.5 fl (80-96); MEAN PLT VOLUME 7.2 fl (7.5-11.1); PLATELET COUNT 400 10^3/uL (134-434); RBC 3.25 M/mm3 (4.00-5.60); RDW 22.2 % (11.9-15.9); WHITE BLOOD COUNT 12.4 K/mm3 (4.0-10.0)
[2023-01-20 10:15] LABS: POTASSIUM 4.5 mmol/L (3.5-5.1)
[2023-01-20 10:17] LABS: BLOOD UREA NITROGEN 31.9 mg/dL (7-18); CALCIUM 8.7 mg/dL (8.5-10.1); MAGNESIUM 2.4 mg/dL (1.8-2.4)
[2023-01-20 10:21] LABS: CREATININE 0.5 mg/dL (0.55-1.3); PHOSPHOROUS 3.8 mg/dL (2.5-4.9)
[2023-01-20] MEDS: AMINO ACIDS/PROTEIN HYDROLYS 30 ML LIQUID.PKT GT SCH ×2 (11:46→19:25)
[2023-01-20] MEDS: ASCORBIC ACID 500 MG/5 ML UNIT DOSE CUP PO SCH ×2 (11:46→23:00)
[2023-01-20] MEDS: FUROSEMIDE 40 MG/4 ML INJECTABLE VIAL IVPUSH SCH (11:46)
[2023-01-20] MEDS: MULTIVIT-MINERALS ORAL LIQUID GT SCH (11:47)
[2023-01-20] MEDS: COLLAGENASE CLOSTRIDIUM HIST. 30 GRAMS TUBE TP SCH (11:47)
[2023-01-20] MEDS: FLUTICASONE PROP 0.05% 16 GM NASAL SPRAY NS SCH ×2 (11:47→22:02)
[2023-01-20] MEDS: OXYBUTYNIN CHLORIDE 5 MG/5 ML PO SCH ×2 (11:48→23:00)
[2023-01-20] MEDS: NYSTATIN 100,000 UNIT/GM TOPICAL CREAM 15 GM TUBE TP SCH ×2 (11:48→22:02)
[2023-01-20] MEDS: FAMOTIDINE 20 MG/2.5 ML ORAL LIQUID GT SCH (12:09)
[2023-01-20] MEDS: LEVALBUTEROL HCL 0.31 MG/3 ML VIAL.NEB IH PRN (20:22)
[2023-01-20] MEDS: ATORVASTATIN CA 10 MG TABLET (FP) GT SCH (22:00)
[2023-01-20] MEDS: MELATONIN 1 MG TABLET GT SCH (22:59)
[2023-01-21] MEDS ORDERED: MEROPENEM 1 GM VIAL (RESTRICTED TO ID) IVPB ONE ×2 (01:23→16:32)
[2023-01-21] MEDS: MEROPENEM 1 GM in DEXTROSE 5%-WATER 100 ML IVPB SCH ×3 (01:46→17:48)
[2023-01-21] MEDS: GABAPENTIN 250 MG/5 ML ORAL SOLUTION, 470 ML BOTTLE GT SCH ×3 (06:38→23:02)
[2023-01-21] MEDS: INSULIN SLIDING SCALE (NOVOLOG) 1 VIAL SQ SCH ×4 (07:06→21:52)
[2023-01-21] MEDS: SODIUM CHLORIDE FOR INHALATION 3 ML VIAL.NEB IH SCH ×4 (08:16→20:00)
[2023-01-21 08:19] LABS: HEMATOCRIT 29.3 % (35.4-49); HEMOGLOBIN 9.1 GM/dL (11.7-16.9); MEAN CELL VOLUME 87.3 fl (80-96); PLATELET COUNT 583 10^3/uL (134-434); RBC 3.36 M/mm3 (4.00-5.60); RDW 22.7 % (11.9-15.9); WHITE BLOOD COUNT 16.1 K/mm3 (4.0-10.0)
[2023-01-21 08:35] LABS: POTASSIUM 4.3 mmol/L (3.5-5.1)
[2023-01-21 08:37] LABS: CALCIUM 8.7 mg/dL (8.5-10.1)
[2023-01-21 08:39] LABS: BLOOD UREA NITROGEN 36.6 mg/dL (7-18); MAGNESIUM 2.4 mg/dL (1.8-2.4)
[2023-01-21 08:41] LABS: CREATININE 0.7 mg/dL (0.55-1.3); PHOSPHOROUS 4.9 mg/dL (2.5-4.9)
[2023-01-21] MEDS: AMINO ACIDS/PROTEIN HYDROLYS 30 ML LIQUID.PKT GT SCH ×2 (08:59→17:48)
[2023-01-21] MEDS: ENOXAPARIN NA (PORCINE) 40 MG/0.4 ML DISP.SYRIN SQ SCH (09:00)
[2023-01-21] MEDS: MULTIVIT-MINERALS ORAL LIQUID GT SCH (09:01)
[2023-01-21] MEDS: OXYBUTYNIN CHLORIDE 5 MG/5 ML PO SCH ×2 (09:01→21:49)
[2023-01-21] MEDS: ASCORBIC ACID 500 MG/5 ML UNIT DOSE CUP PO SCH ×2 (09:01→21:48)
[2023-01-21] MEDS: FLUTICASONE PROP 0.05% 16 GM NASAL SPRAY NS SCH ×2 (09:02→21:50)
[2023-01-21] MEDS: FUROSEMIDE 40 MG/4 ML INJECTABLE VIAL IVPUSH SCH (09:02)
[2023-01-21] MEDS: COLLAGENASE CLOSTRIDIUM HIST. 30 GRAMS TUBE TP SCH (11:19)
[2023-01-21] MEDS: FAMOTIDINE 20 MG/2.5 ML ORAL LIQUID GT SCH (11:19)
[2023-01-21] MEDS: NYSTATIN 100,000 UNIT/GM TOPICAL CREAM 15 GM TUBE TP SCH ×2 (11:20→21:49)
[2023-01-21] MEDS: LEVALBUTEROL HCL 0.31 MG/3 ML VIAL.NEB IH PRN (20:00)
[2023-01-21] MEDS: MELATONIN 1 MG TABLET GT SCH (21:49)
[2023-01-21] MEDS: ATORVASTATIN CA 10 MG TABLET (FP) GT SCH (21:49)
[2023-01-22] MEDS: MEROPENEM 1 GM in DEXTROSE 5%-WATER 100 ML IVPB SCH ×3 (01:45→17:52)
[2023-01-22] MEDS: GABAPENTIN 250 MG/5 ML ORAL SOLUTION, 470 ML BOTTLE GT SCH ×3 (06:30→22:52)
[2023-01-22] MEDS: INSULIN SLIDING SCALE (NOVOLOG) 1 VIAL SQ SCH ×4 (06:31→23:27)
[2023-01-22] MEDS: SODIUM CHLORIDE FOR INHALATION 3 ML VIAL.NEB IH SCH ×4 (09:19→20:10)
[2023-01-22 10:00] LABS: HEMATOCRIT 30.6 % (35.4-49); HEMOGLOBIN 9.6 GM/dL (11.7-16.9); MCH 27.1 pg (25.7-33.7); MCHC 31.4 g/dl (32.0-35.9); MEAN CELL VOLUME 86.5 fl (80-96); MEAN PLT VOLUME 6.7 fl (7.5-11.1); PLATELET COUNT 487 10^3/uL (134-434); RBC 3.53 M/mm3 (4.00-5.60); RDW 22.6 % (11.9-15.9); WHITE BLOOD COUNT 14.8 K/mm3 (4.0-10.0)
[2023-01-22 10:19] LABS: CHLORIDE 101 mmol/L (98-107); POTASSIUM 4.6 mmol/L (3.5-5.1); SODIUM 141 mmol/L (136-145)
[2023-01-22 10:29] LABS: CALCIUM 8.9 mg/dL (8.5-10.1); PHOSPHOROUS 4.6 mg/dL (2.5-4.9); SGPT/ALT 14 U/L (13-61)
[2023-01-22 10:30] LABS: ALBUMIN 1.3 g/dl (3.4-5.0); ANION GAP 3 MMOL/L (8-16); BLOOD UREA NITROGEN 41.2 mg/dL (7-18); CO2 38 mmol/L (21-32); GLUCOSE,RANDOM 125 mg/dL (74-106)
[2023-01-22 10:31] LABS: BILIRUBIN,TOTAL < 0.1 mg/dL (0.2-1); MAGNESIUM 2.4 mg/dL (1.8-2.4)
[2023-01-22 10:32] LABS: ALK PHOS 107 U/L (45-117)
[2023-01-22 10:33] LABS: CREATININE 0.6 mg/dL (0.55-1.3); SGOT/AST 16 U/L (15-37)
[2023-01-22] MEDS: OXYBUTYNIN CHLORIDE 5 MG/5 ML PO SCH ×2 (11:14→22:49)
[2023-01-22] MEDS: ASCORBIC ACID 500 MG/5 ML UNIT DOSE CUP PO SCH ×2 (11:15→22:49)
[2023-01-22] MEDS: MULTIVIT-MINERALS ORAL LIQUID GT SCH (11:17)
[2023-01-22] MEDS: AMINO ACIDS/PROTEIN HYDROLYS 30 ML LIQUID.PKT GT SCH ×2 (11:18→17:51)
[2023-01-22] MEDS: FUROSEMIDE 40 MG/4 ML INJECTABLE VIAL IVPUSH SCH (11:18)
[2023-01-22] MEDS: FAMOTIDINE 20 MG/2.5 ML ORAL LIQUID GT SCH (11:18)
[2023-01-22] MEDS: FLUTICASONE PROP 0.05% 16 GM NASAL SPRAY NS SCH ×2 (11:19→22:47)
[2023-01-22] MEDS: ENOXAPARIN NA (PORCINE) 40 MG/0.4 ML DISP.SYRIN SQ SCH (11:19)
[2023-01-22] MEDS: NYSTATIN 100,000 UNIT/GM TOPICAL CREAM 15 GM TUBE TP SCH ×2 (11:19→22:48)
[2023-01-22] MEDS: COLLAGENASE CLOSTRIDIUM HIST. 30 GRAMS TUBE TP SCH (14:12)
[2023-01-22] MEDS: LEVALBUTEROL HCL 0.31 MG/3 ML VIAL.NEB IH PRN (20:10)
[2023-01-22] MEDS: ATORVASTATIN CA 10 MG TABLET (FP) GT SCH (22:47)
[2023-01-22] MEDS: MELATONIN 1 MG TABLET GT SCH (22:47)
[2023-01-23] MEDS: MEROPENEM 1 GM in DEXTROSE 5%-WATER 100 ML IVPB SCH ×3 (03:34→17:38)
[2023-01-23] MEDS: GABAPENTIN 250 MG/5 ML ORAL SOLUTION, 470 ML BOTTLE GT SCH ×3 (05:37→21:14)
[2023-01-23] MEDS: INSULIN SLIDING SCALE (NOVOLOG) 1 VIAL SQ SCH ×4 (07:05→22:45)
[2023-01-23] MEDS: LEVALBUTEROL HCL 0.31 MG/3 ML VIAL.NEB IH PRN ×3 (07:52→20:00)
[2023-01-23] MEDS: SODIUM CHLORIDE FOR INHALATION 3 ML VIAL.NEB IH SCH ×4 (07:52→20:00)
[2023-01-23] MEDS: AMINO ACIDS/PROTEIN HYDROLYS 30 ML LIQUID.PKT GT SCH ×2 (08:47→17:38)
[2023-01-23] MEDS: ENOXAPARIN NA (PORCINE) 40 MG/0.4 ML DISP.SYRIN SQ SCH (10:06)
[2023-01-23] MEDS: ASCORBIC ACID 500 MG/5 ML UNIT DOSE CUP PO SCH ×2 (10:06→21:14)
[2023-01-23] MEDS: FUROSEMIDE 40 MG/4 ML INJECTABLE VIAL IVPUSH SCH (10:06)
[2023-01-23] MEDS: OXYBUTYNIN CHLORIDE 5 MG/5 ML PO SCH ×2 (10:07→21:15)
[2023-01-23] MEDS: FAMOTIDINE 20 MG/2.5 ML ORAL LIQUID GT SCH (10:08)
[2023-01-23] MEDS: MULTIVIT-MINERALS ORAL LIQUID GT SCH (10:08)
[2023-01-23] MEDS: FLUTICASONE PROP 0.05% 16 GM NASAL SPRAY NS SCH ×2 (10:11→21:14)
[2023-01-23] MEDS: ACETAMINOPHEN 1000 MG/100 ML BAG IVPB PRN (13:00)
[2023-01-23] MEDS: NYSTATIN 100,000 UNIT/GM TOPICAL CREAM 15 GM TUBE TP SCH ×2 (15:29→21:14)
[2023-01-23] MEDS: COLLAGENASE CLOSTRIDIUM HIST. 30 GRAMS TUBE TP SCH (15:30)
[2023-01-23] MEDS: MELATONIN 1 MG TABLET GT SCH (21:14)
[2023-01-23] MEDS: ATORVASTATIN CA 10 MG TABLET (FP) GT SCH (21:14)
[2023-01-23] MEDS ORDERED: INSULIN (NOVOLOG) ASPART 100 UNITS/ML 10ML VIAL ONE (21:51)
[2023-01-24] MEDS: MEROPENEM 1 GM in DEXTROSE 5%-WATER 100 ML IVPB SCH ×3 (01:57→18:26)
[2023-01-24] MEDS: GABAPENTIN 250 MG/5 ML ORAL SOLUTION, 470 ML BOTTLE GT SCH ×3 (06:47→22:49)
[2023-01-24] MEDS: INSULIN SLIDING SCALE (NOVOLOG) 1 VIAL SQ SCH ×4 (06:54→22:45)
[2023-01-24] MEDS: SODIUM CHLORIDE FOR INHALATION 3 ML VIAL.NEB IH SCH ×4 (07:42→20:30)
[2023-01-24] MEDS: AMINO ACIDS/PROTEIN HYDROLYS 30 ML LIQUID.PKT GT SCH ×2 (10:38→18:26)
[2023-01-24] MEDS: ENOXAPARIN NA (PORCINE) 40 MG/0.4 ML DISP.SYRIN SQ SCH (10:39)
[2023-01-24] MEDS: MULTIVIT-MINERALS ORAL LIQUID GT SCH (10:39)
[2023-01-24] MEDS: FUROSEMIDE 40 MG/4 ML INJECTABLE VIAL IVPUSH SCH (10:39)
[2023-01-24] MEDS: FAMOTIDINE 20 MG/2.5 ML ORAL LIQUID GT SCH (10:40)
[2023-01-24] MEDS: OXYBUTYNIN CHLORIDE 5 MG/5 ML PO SCH ×2 (10:40→22:40)
[2023-01-24] MEDS: ASCORBIC ACID 500 MG/5 ML UNIT DOSE CUP PO SCH ×2 (10:40→22:39)
[2023-01-24] MEDS: COLLAGENASE CLOSTRIDIUM HIST. 30 GRAMS TUBE TP SCH (10:45)
[2023-01-24] MEDS: FLUTICASONE PROP 0.05% 16 GM NASAL SPRAY NS SCH ×2 (10:45→22:40)
[2023-01-24] MEDS: NYSTATIN 100,000 UNIT/GM TOPICAL CREAM 15 GM TUBE TP SCH ×2 (11:16→22:40)
[2023-01-24] MEDS: MELATONIN 1 MG TABLET GT SCH (22:39)
[2023-01-24] MEDS: ATORVASTATIN CA 10 MG TABLET (FP) GT SCH (22:40)
[2023-01-25] MEDS: INSULIN SLIDING SCALE (NOVOLOG) 1 VIAL SQ SCH ×4 (06:37→22:30)
[2023-01-25] MEDS: MEROPENEM 1 GM in DEXTROSE 5%-WATER 100 ML IVPB SCH ×3 (06:44→17:04)
[2023-01-25] MEDS: GABAPENTIN 250 MG/5 ML ORAL SOLUTION, 470 ML BOTTLE GT SCH ×3 (06:47→22:27)
[2023-01-25] MEDS ORDERED: INSULIN (NOVOLOG) ASPART 100 UNITS/ML 10ML VIAL ONE (06:51)
[2023-01-25 08:12] LABS: HEMATOCRIT 25.6 % (35.4-49); HEMOGLOBIN 8.1 GM/dL (11.7-16.9); MCH 27.2 pg (25.7-33.7); MCHC 31.8 g/dl (32.0-35.9); MEAN CELL VOLUME 85.5 fl (80-96); MEAN PLT VOLUME 7.3 fl (7.5-11.1); PLATELET COUNT 417 10^3/uL (134-434); RBC 2.99 M/mm3 (4.00-5.60); RDW 21.3 % (11.9-15.9)
[2023-01-25] MEDS: SODIUM CHLORIDE FOR INHALATION 3 ML VIAL.NEB IH SCH ×4 (08:22→21:16)
[2023-01-25] MEDS: AMINO ACIDS/PROTEIN HYDROLYS 30 ML LIQUID.PKT GT SCH ×2 (08:24→17:04)
[2023-01-25 08:29] LABS: POTASSIUM 4.5 mmol/L (3.5-5.1)
[2023-01-25 08:32] LABS: CALCIUM 8.8 mg/dL (8.5-10.1)
[2023-01-25 08:33] LABS: BLOOD UREA NITROGEN 39.1 mg/dL (7-18)
[2023-01-25 08:36] LABS: CREATININE 0.6 mg/dL (0.55-1.3)
[2023-01-25] MEDS ORDERED: INSULIN (LEVEMIR) 100 UNITS/ML UNITS SQ ONE (09:01)
[2023-01-25] MEDS: ASCORBIC ACID 500 MG/5 ML UNIT DOSE CUP PO SCH ×2 (10:53→22:26)
[2023-01-25] MEDS: OXYBUTYNIN CHLORIDE 5 MG/5 ML PO SCH ×2 (10:53→22:26)
[2023-01-25] MEDS: FAMOTIDINE 20 MG/2.5 ML ORAL LIQUID GT SCH (10:54)
[2023-01-25] MEDS: NYSTATIN 100,000 UNIT/GM TOPICAL CREAM 15 GM TUBE TP SCH ×2 (10:55→22:28)
[2023-01-25] MEDS: FUROSEMIDE 40 MG/4 ML INJECTABLE VIAL IVPUSH SCH (10:55)
[2023-01-25] MEDS: ENOXAPARIN NA (PORCINE) 40 MG/0.4 ML DISP.SYRIN SQ SCH (10:55)
[2023-01-25] MEDS: FLUTICASONE PROP 0.05% 16 GM NASAL SPRAY NS SCH ×2 (10:55→22:27)
[2023-01-25] MEDS: MULTIVIT-MINERALS ORAL LIQUID GT SCH (14:10)
[2023-01-25] MEDS: COLLAGENASE CLOSTRIDIUM HIST. 30 GRAMS TUBE TP SCH (14:15)
[2023-01-25] MEDS: SODIUM CHLORIDE 1,000 ML IV SCH (18:15)
[2023-01-25] MEDS: MELATONIN 1 MG TABLET GT SCH (22:26)
[2023-01-25] MEDS: ATORVASTATIN CA 10 MG TABLET (FP) GT SCH (22:27)
[2023-01-26] MEDS: MEROPENEM 1 GM in DEXTROSE 5%-WATER 100 ML IVPB SCH ×3 (02:56→17:17)
[2023-01-26] MEDS: GABAPENTIN 250 MG/5 ML ORAL SOLUTION, 470 ML BOTTLE GT SCH ×3 (06:35→23:15)
[2023-01-26] MEDS: INSULIN SLIDING SCALE (NOVOLOG) 1 VIAL SQ SCH ×4 (06:36→21:42)
[2023-01-26] MEDS: AMINO ACIDS/PROTEIN HYDROLYS 30 ML LIQUID.PKT GT SCH ×2 (08:17→17:17)
[2023-01-26] MEDS: SODIUM CHLORIDE FOR INHALATION 3 ML VIAL.NEB IH SCH ×4 (08:35→20:36)
[2023-01-26 09:01] LABS: HEMATOCRIT 24.6 % (35.4-49); HEMOGLOBIN 7.9 GM/dL (11.7-16.9); MCH 27.6 pg (25.7-33.7); MCHC 32.1 g/dl (32.0-35.9); MEAN PLT VOLUME 7.4 fl (7.5-11.1); PLATELET COUNT 394 10^3/uL (134-434); RBC 2.87 M/mm3 (4.00-5.60); RDW 21.8 % (11.9-15.9); WHITE BLOOD COUNT 8.9 K/mm3 (4.0-10.0)
[2023-01-26] MEDS: FAMOTIDINE 20 MG/2.5 ML ORAL LIQUID GT SCH (09:59)
[2023-01-26] MEDS: MULTIVIT-MINERALS ORAL LIQUID GT SCH (09:59)
[2023-01-26] MEDS: ASCORBIC ACID 500 MG/5 ML UNIT DOSE CUP PO SCH ×2 (09:59→21:47)
[2023-01-26] MEDS: OXYBUTYNIN CHLORIDE 5 MG/5 ML PO SCH ×3 (09:59→21:47)
[2023-01-26] MEDS: SODIUM CHLORIDE 1,000 ML IV SCH (10:02)
[2023-01-26] MEDS: FUROSEMIDE 40 MG/4 ML INJECTABLE VIAL IVPUSH SCH (10:03)
[2023-01-26] MEDS: ACETAMINOPHEN 1000 MG/100 ML BAG IVPB PRN (10:03)
[2023-01-26] MEDS: ENOXAPARIN NA (PORCINE) 40 MG/0.4 ML DISP.SYRIN SQ SCH (10:03)
[2023-01-26] MEDS: FLUTICASONE PROP 0.05% 16 GM NASAL SPRAY NS SCH ×2 (10:04→21:47)
[2023-01-26 10:16] LABS: POTASSIUM 4.4 mmol/L (3.5-5.1)
[2023-01-26 10:23] LABS: CALCIUM 8.7 mg/dL (8.5-10.1)
[2023-01-26 10:24] LABS: BLOOD UREA NITROGEN 35.8 mg/dL (7-18); MAGNESIUM 2.3 mg/dL (1.8-2.4)
[2023-01-26 10:27] LABS: CREATININE 0.5 mg/dL (0.55-1.3); PHOSPHOROUS 3.7 mg/dL (2.5-4.9)
[2023-01-26] MEDS: COLLAGENASE CLOSTRIDIUM HIST. 30 GRAMS TUBE TP SCH (13:27)
[2023-01-26] MEDS: NYSTATIN 100,000 UNIT/GM TOPICAL CREAM 15 GM TUBE TP SCH ×2 (13:27→21:47)
[2023-01-26] MEDS ORDERED: oxyCODONE HCL 5 MG TABLET PO PRN (14:15)
[2023-01-26] MEDS ORDERED: ACETAMINOPHEN 1000 MG/100 ML BAG IVPB PRN (14:16)
[2023-01-26] MEDS: oxyCODONE HCL 5 MG TABLET PO PRN ×2 (14:44→21:48)
[2023-01-26] MEDS: ATORVASTATIN CA 10 MG TABLET (FP) GT SCH (21:47)
[2023-01-26] MEDS: MELATONIN 1 MG TABLET GT SCH (21:47)
[2023-01-27] MEDS: MEROPENEM 1 GM in DEXTROSE 5%-WATER 100 ML IVPB SCH ×3 (01:43→18:28)
[2023-01-27] MEDS: GABAPENTIN 250 MG/5 ML ORAL SOLUTION, 470 ML BOTTLE GT SCH ×3 (05:58→22:00)
[2023-01-27] MEDS: INSULIN SLIDING SCALE (NOVOLOG) 1 VIAL SQ SCH ×4 (06:10→21:59)
[2023-01-27] MEDS: SODIUM CHLORIDE FOR INHALATION 3 ML VIAL.NEB IH SCH ×4 (07:36→19:48)
[2023-01-27 08:29] LABS: HEMATOCRIT 26.2 % (35.4-49); HEMOGLOBIN 8.3 GM/dL (11.7-16.9); MCH 27.3 pg (25.7-33.7); MCHC 31.5 g/dl (32.0-35.9); MEAN CELL VOLUME 86.6 fl (80-96); MEAN PLT VOLUME 7.6 fl (7.5-11.1); PLATELET COUNT 448 10^3/uL (134-434); RBC 3.03 M/mm3 (4.00-5.60); RDW 20.9 % (11.9-15.9); WHITE BLOOD COUNT 10.8 K/mm3 (4.0-10.0)
[2023-01-27 08:35] LABS: POTASSIUM 4.3 mmol/L (3.5-5.1)
[2023-01-27 08:41] LABS: CALCIUM 8.7 mg/dL (8.5-10.1)
[2023-01-27 08:42] LABS: CREATININE 0.6 mg/dL (0.55-1.3)
[2023-01-27] MEDS ORDERED: PROPOFOL 40 ML ONE (09:18)
[2023-01-27] MEDS ORDERED: ROCURONIUM BROMIDE 50 MG/5 ML SYRINGE ONE (09:19)
[2023-01-27] MEDS ORDERED: MIDAZOLAM HCL 2 MG/2 ML SINGLE DOSE VIAL ONE ×2 (09:19→12:44)
[2023-01-27] MEDS ORDERED: HYDROmorphone HCl 2 MG/ML VIAL ONE ×2 (09:25→12:44)
[2023-01-27] MEDS ORDERED: ALBUTEROL SO4 HFA INHALER IH ONE (11:12)
[2023-01-27] MEDS ORDERED: LORazepam 2 MG/ML SDV VIAL IVPUSH ONE (13:00)
[2023-01-27] MEDS ORDERED: VASOPRESSIN 20 UNITS/ML VIAL IV ONE (13:31)
[2023-01-27] MEDS ORDERED: LIDOCAINE HCL/PF 1% SDV 5ML VIAL ONE (13:34)
[2023-01-27] MEDS ORDERED: LIDOCAINE HCL 1%, 10 MG/ML (20ML VIAL) INF ONE (13:49)
[2023-01-27] MEDS ORDERED: ONDANSETRON 4 MG/2 ML VIAL IVPUSH PRN (14:56)
[2023-01-27] MEDS ORDERED: oxyCODONE HCL 5 MG TABLET PO PRN ×2 (14:56)
[2023-01-27] MEDS ORDERED: guaiFENesin/D-M SUGAR-FREE/ACLHOL-FREE 5 ML UNIT DOSE GT PRN (14:56)
[2023-01-27] MEDS: MULTIVIT-MINERALS ORAL LIQUID GT SCH (18:25)
[2023-01-27] MEDS: FLUTICASONE PROP 0.05% 16 GM NASAL SPRAY NS SCH ×2 (18:25→21:59)
[2023-01-27] MEDS: AMINO ACIDS/PROTEIN HYDROLYS 30 ML LIQUID.PKT GT SCH ×2 (18:25→18:29)
[2023-01-27] MEDS: FUROSEMIDE 40 MG/4 ML INJECTABLE VIAL IVPUSH SCH (18:26)
[2023-01-27] MEDS: OXYBUTYNIN CHLORIDE 5 MG/5 ML PO SCH ×2 (18:26→21:57)
[2023-01-27] MEDS: NYSTATIN 100,000 UNIT/GM TOPICAL CREAM 15 GM TUBE TP SCH (18:26)
[2023-01-27] MEDS: ENOXAPARIN NA (PORCINE) 40 MG/0.4 ML DISP.SYRIN SQ SCH (18:26)
[2023-01-27] MEDS: FAMOTIDINE 20 MG/2.5 ML ORAL LIQUID GT SCH (18:26)
[2023-01-27] MEDS: ASCORBIC ACID 500 MG/5 ML UNIT DOSE CUP PO SCH ×2 (18:27→21:57)
[2023-01-27] MEDS: COLLAGENASE CLOSTRIDIUM HIST. 30 GRAMS TUBE TP SCH (18:27)
[2023-01-27] MEDS ORDERED: INSULIN (NOVOLOG) ASPART 100 UNITS/ML 10ML VIAL ONE (21:39)
[2023-01-27] MEDS ORDERED: MELATONIN 1 MG TABLET GT SCH (22:00)
[2023-01-27] MEDS ORDERED: ATORVASTATIN CA 10 MG TABLET (FP) GT SCH (22:00)
[2023-01-28] MEDS: MEROPENEM 1 GM in DEXTROSE 5%-WATER 100 ML IVPB SCH ×3 (01:58→17:04)
[2023-01-28] MEDS: GABAPENTIN 250 MG/5 ML ORAL SOLUTION, 470 ML BOTTLE GT SCH ×3 (06:25→22:24)
[2023-01-28] MEDS: INSULIN SLIDING SCALE (NOVOLOG) 1 VIAL SQ SCH ×5 (06:27→21:33)
[2023-01-28] MEDS ORDERED: ALBUTEROL SO4 2.5/IPRATROPIUM 0.5 INH SOL 3 ML VIAL.NEB. NEB ONE (07:33)
[2023-01-28] MEDS ORDERED: ACETYLCYSTEINE 20% 200MG/ML 4 ML VIAL *FOR ORAL / INH USE ONLY NEB ONE (07:53)
[2023-01-28 08:05] LABS: HEMATOCRIT 24.9 % (35.4-49); HEMOGLOBIN 7.9 GM/dL (11.7-16.9); MCH 27.3 pg (25.7-33.7); MEAN CELL VOLUME 85.3 fl (80-96); MEAN PLT VOLUME 6.8 fl (7.5-11.1); PLATELET COUNT 372 10^3/uL (134-434); RBC 2.91 M/mm3 (4.00-5.60); RDW 20.9 % (11.9-15.9); WHITE BLOOD COUNT 11.5 K/mm3 (4.0-10.0)
[2023-01-28 08:19] LABS: POTASSIUM 4.6 mmol/L (3.5-5.1)
[2023-01-28 08:20] LABS: CALCIUM 8.2 mg/dL (8.5-10.1)
[2023-01-28 08:24] LABS: CREATININE 0.5 mg/dL (0.55-1.3)
[2023-01-28] MEDS: AMINO ACIDS/PROTEIN HYDROLYS 30 ML LIQUID.PKT GT SCH ×2 (09:47→16:50)
[2023-01-28] MEDS: OXYBUTYNIN CHLORIDE 5 MG/5 ML PO SCH ×2 (09:51→22:24)
[2023-01-28] MEDS: SODIUM CHLORIDE FOR INHALATION 3 ML VIAL.NEB IH SCH ×4 (09:51→20:45)
[2023-01-28] MEDS: FLUTICASONE PROP 0.05% 16 GM NASAL SPRAY NS SCH ×2 (09:51→21:32)
[2023-01-28] MEDS: ASCORBIC ACID 500 MG/5 ML UNIT DOSE CUP PO SCH ×2 (09:51→21:32)
[2023-01-28] MEDS ORDERED: ENOXAPARIN NA (PORCINE) 40 MG/0.4 ML DISP.SYRIN SQ SCH (10:00)
[2023-01-28] MEDS ORDERED: FAMOTIDINE 20 MG/2.5 ML ORAL LIQUID GT SCH (10:00)
[2023-01-28] MEDS ORDERED: FUROSEMIDE 40 MG/4 ML INJECTABLE VIAL IVPUSH SCH (10:00)
[2023-01-28] MEDS ORDERED: COLLAGENASE CLOSTRIDIUM HIST. 30 GRAMS TUBE TP SCH (10:00)
[2023-01-28] MEDS ORDERED: MULTIVIT-MINERALS ORAL LIQUID GT SCH (10:00)
[2023-01-28] MEDS ORDERED: DEXTROSE 5%-LACTATED RINGERS 1,000 ML IV SCH (12:00)
[2023-01-28 13:20] LABS: ARTERIAL BLD GAS O2 SATURATION 98.9 % (95-98); ARTERIAL BLOOD GAS BASE EXCESS 4.7 mmol/L (-2-2); ARTERIAL BLOOD GAS PO2 158.4 mmHg (80-100); ARTERIAL BLOOD GAS pH 7.351 (7.350-7.450)
[2023-01-28 16:13] LABS: LACTIC ACID 2.3 mmol/L (0.4-2.0)
[2023-01-28] MEDS ORDERED: guaiFENesin/D-M SUGAR-FREE/ACLHOL-FREE 5 ML UNIT DOSE GT PRN (16:30)
[2023-01-28] MEDS ORDERED: ONDANSETRON 4 MG/2 ML VIAL IVPUSH PRN (16:30)
[2023-01-28] MEDS ORDERED: LORazepam 2 MG/ML SDV VIAL IVPUSH ONE (16:53)
[2023-01-28] MEDS: methylPREDNISolone NA SUCC 40 MG/1 ML VIAL IVPUSH SCH (17:04)
[2023-01-28] MEDS: ALBUTEROL SO4 0.083% IH SOL 2.5 MG/3 ML VIAL.NEB. NEB SCH (20:45)
[2023-01-28] MEDS: MUPIROCIN 2% TOPICAL OINTMENT FOR DECOLONIZATION NS SCH (21:32)
[2023-01-28] MEDS: ATORVASTATIN CA 10 MG TABLET (FP) GT SCH (21:33)
[2023-01-28] MEDS: MELATONIN 1 MG TABLET GT SCH (21:33)
[2023-01-28] MEDS: CHLORHEXIDINE GLUCONATE 4% CLEANSER FOR DECOLONIZATION TP SCH (21:33)
[2023-01-28 23:25] LABS: ARTERIAL BLD GAS O2 SATURATION 95.4 % (95-98); ARTERIAL BLOOD GAS PO2 71.9 mmHg (80-100); ARTERIAL BLOOD GAS pH 7.489 (7.350-7.450)
[2023-01-28 23:27] LABS: ALLENS TEST POSITIVE; VENT MODE A/C; VENT RATE 16
[2023-01-29 00:13] LABS: HEMATOCRIT 23.7 % (35.4-49); HEMOGLOBIN 7.7 GM/dL (11.7-16.9); MCH 27.4 pg (25.7-33.7); MCHC 32.5 g/dl (32.0-35.9); MEAN CELL VOLUME 84.3 fl (80-96); MEAN PLT VOLUME 7.2 fl (7.5-11.1); PLATELET COUNT 336 10^3/uL (134-434); RBC 2.81 M/mm3 (4.00-5.60); WHITE BLOOD COUNT 10.2 K/mm3 (4.0-10.0)
[2023-01-29] MEDS: MEROPENEM 1 GM in DEXTROSE 5%-WATER 100 ML IVPB SCH ×3 (00:59→17:24)
[2023-01-29] MEDS: methylPREDNISolone NA SUCC 40 MG/1 ML VIAL IVPUSH SCH ×3 (00:59→17:24)
[2023-01-29 01:03] LABS: LACTIC ACID 2.5 mmol/L (0.4-2.0)
[2023-01-29] MEDS ORDERED: INSULIN (NOVOLOG) ASPART 100 UNITS/ML 10ML VIAL ONE (06:15)
[2023-01-29] MEDS: INSULIN SLIDING SCALE (NOVOLOG) 1 VIAL SQ SCH ×4 (06:16→21:49)
[2023-01-29] MEDS: GABAPENTIN 250 MG/5 ML ORAL SOLUTION, 470 ML BOTTLE GT SCH ×3 (06:21→21:39)
[2023-01-29 07:25] LABS: HEMATOCRIT 21.9 % (35.4-49); MCHC 31.3 g/dl (32.0-35.9); MEAN CELL VOLUME 86.5 fl (80-96); MEAN PLT VOLUME 7.8 fl (7.5-11.1); PLATELET COUNT 350 10^3/uL (134-434); RBC 2.54 M/mm3 (4.00-5.60); RDW 20.6 % (11.9-15.9); WHITE BLOOD COUNT 9.4 K/mm3 (4.0-10.0)
[2023-01-29 07:32] LABS: HEMOGLOBIN 6.9 GM/dL (11.7-16.9)
[2023-01-29 07:54] LABS: POTASSIUM 4.4 mmol/L (3.5-5.1)
[2023-01-29] MEDS: ALBUTEROL SO4 0.083% IH SOL 2.5 MG/3 ML VIAL.NEB. NEB SCH ×3 (07:56→20:05)
[2023-01-29 07:57] LABS: ALBUMIN 1.1 g/dl (3.4-5.0); BLOOD UREA NITROGEN 32.9 mg/dL (7-18); MAGNESIUM 2.1 mg/dL (1.8-2.4)
[2023-01-29] MEDS: SODIUM CHLORIDE FOR INHALATION 3 ML VIAL.NEB IH SCH ×4 (07:57→20:05)
[2023-01-29 08:00] LABS: CREATININE 0.8 mg/dL (0.55-1.3)
[2023-01-29 08:02] LABS: BILIRUBIN,TOTAL 0.2 mg/dL (0.2-1); TOT PROT 6.1 g/dl (6.4-8.2)
[2023-01-29 08:51] LABS: ANISOCYTOSIS 2+; MACROCYTOSIS 0; PLATELET ESTIMATE INCREASED
[2023-01-29] MEDS: FUROSEMIDE 40 MG/4 ML INJECTABLE VIAL IVPUSH SCH (09:39)
[2023-01-29] MEDS: FAMOTIDINE 20 MG/2.5 ML ORAL LIQUID GT SCH (09:39)
[2023-01-29] MEDS: MULTIVIT-MINERALS ORAL LIQUID GT SCH (09:39)
[2023-01-29] MEDS: AMINO ACIDS/PROTEIN HYDROLYS 30 ML LIQUID.PKT GT SCH ×2 (09:39→17:24)
[2023-01-29] MEDS: ENOXAPARIN NA (PORCINE) 40 MG/0.4 ML DISP.SYRIN SQ SCH (09:40)
[2023-01-29] MEDS: ASCORBIC ACID 500 MG/5 ML UNIT DOSE CUP PO SCH ×2 (09:40→21:32)
[2023-01-29] MEDS: OXYBUTYNIN CHLORIDE 5 MG/5 ML PO SCH ×2 (09:40→21:32)
[2023-01-29] MEDS: MUPIROCIN 2% TOPICAL OINTMENT FOR DECOLONIZATION NS SCH ×2 (09:41→21:33)
[2023-01-29] MEDS: FLUTICASONE PROP 0.05% 16 GM NASAL SPRAY NS SCH ×2 (09:41→21:33)
[2023-01-29] MEDS: COLLAGENASE CLOSTRIDIUM HIST. 30 GRAMS TUBE TP SCH (09:42)
[2023-01-29] MEDS: ATORVASTATIN CA 10 MG TABLET (FP) GT SCH (21:32)
[2023-01-29] MEDS: MELATONIN 1 MG TABLET GT SCH (21:32)
[2023-01-29] MEDS: CHLORHEXIDINE GLUCONATE 4% CLEANSER FOR DECOLONIZATION TP SCH (21:33)
[2023-01-30] MEDS: MEROPENEM 1 GM in DEXTROSE 5%-WATER 100 ML IVPB SCH ×3 (01:26→18:27)
[2023-01-30] MEDS: methylPREDNISolone NA SUCC 40 MG/1 ML VIAL IVPUSH SCH ×3 (01:26→22:04)
[2023-01-30] MEDS: oxyCODONE HCL 5 MG TABLET PO PRN ×2 (06:28→16:49)
[2023-01-30] MEDS: INSULIN SLIDING SCALE (NOVOLOG) 1 VIAL SQ SCH ×4 (06:29→22:06)
[2023-01-30] MEDS: GABAPENTIN 250 MG/5 ML ORAL SOLUTION, 470 ML BOTTLE GT SCH ×3 (06:39→22:07)
[2023-01-30 08:12] LABS: HEMATOCRIT 25.4 % (35.4-49); HEMOGLOBIN 8.2 GM/dL (11.7-16.9); MCH 28.2 pg (25.7-33.7); MCHC 32.1 g/dl (32.0-35.9); MEAN CELL VOLUME 87.8 fl (80-96); MEAN PLT VOLUME 7.8 fl (7.5-11.1); PLATELET COUNT 309 10^3/uL (134-434); RDW 19.2 % (11.9-15.9); WHITE BLOOD COUNT 7.8 K/mm3 (4.0-10.0)
[2023-01-30 08:17] LABS: POTASSIUM 4.6 mmol/L (3.5-5.1)
[2023-01-30 08:22] LABS: BLOOD UREA NITROGEN 44.4 mg/dL (7-18); CALCIUM 7.9 mg/dL (8.5-10.1); MAGNESIUM 2.1 mg/dL (1.8-2.4)
[2023-01-30 08:25] LABS: CREATININE 0.6 mg/dL (0.55-1.3); PHOSPHOROUS 3.6 mg/dL (2.5-4.9)
[2023-01-30] MEDS: ALBUTEROL SO4 0.083% IH SOL 2.5 MG/3 ML VIAL.NEB. NEB SCH ×3 (09:29→21:00)
[2023-01-30] MEDS: SODIUM CHLORIDE FOR INHALATION 3 ML VIAL.NEB IH SCH ×3 (09:29→21:00)
[2023-01-30] MEDS: AMINO ACIDS/PROTEIN HYDROLYS 30 ML LIQUID.PKT GT SCH ×2 (09:56→16:50)
[2023-01-30] MEDS: MULTIVIT-MINERALS ORAL LIQUID GT SCH (09:57)
[2023-01-30] MEDS: ASCORBIC ACID 500 MG/5 ML UNIT DOSE CUP PO SCH ×2 (09:57→22:07)
[2023-01-30] MEDS: OXYBUTYNIN CHLORIDE 5 MG/5 ML PO SCH ×2 (09:58→22:06)
[2023-01-30] MEDS: FAMOTIDINE 20 MG/2.5 ML ORAL LIQUID GT SCH (09:59)
[2023-01-30] MEDS: ENOXAPARIN NA (PORCINE) 40 MG/0.4 ML DISP.SYRIN SQ SCH (09:59)
[2023-01-30] MEDS: FUROSEMIDE 40 MG/4 ML INJECTABLE VIAL IVPUSH SCH (10:00)
[2023-01-30] MEDS: FLUTICASONE PROP 0.05% 16 GM NASAL SPRAY NS SCH ×2 (10:08→22:03)
[2023-01-30] MEDS: MUPIROCIN 2% TOPICAL OINTMENT FOR DECOLONIZATION NS SCH ×2 (10:08→22:03)
[2023-01-30] MEDS: COLLAGENASE CLOSTRIDIUM HIST. 30 GRAMS TUBE TP SCH (10:09)
[2023-01-30] MEDS ORDERED: INSULIN (NOVOLOG) ASPART 100 UNITS/ML 10ML VIAL ONE (21:38)
[2023-01-30] MEDS: ATORVASTATIN CA 10 MG TABLET (FP) GT SCH (22:03)
[2023-01-30] MEDS: MELATONIN 1 MG TABLET GT SCH (22:03)
[2023-01-30] MEDS: CHLORHEXIDINE GLUCONATE 4% CLEANSER FOR DECOLONIZATION TP SCH (22:03)
[2023-01-31] MEDS: MEROPENEM 1 GM in DEXTROSE 5%-WATER 100 ML IVPB SCH ×3 (02:58→16:59)
[2023-01-31] MEDS ORDERED: INSULIN (NOVOLOG) ASPART 100 UNITS/ML 10ML VIAL ONE ×3 (05:55→16:19)
[2023-01-31] MEDS: GABAPENTIN 250 MG/5 ML ORAL SOLUTION, 470 ML BOTTLE GT SCH ×3 (05:59→21:35)
[2023-01-31] MEDS: INSULIN SLIDING SCALE (NOVOLOG) 1 VIAL SQ SCH ×4 (05:59→21:35)
[2023-01-31 06:42] LABS: POTASSIUM 4.8 mmol/L (3.5-5.1)
[2023-01-31 06:45] LABS: CALCIUM 7.8 mg/dL (8.5-10.1)
[2023-01-31 06:49] LABS: CREATININE 0.6 mg/dL (0.55-1.3); PHOSPHOROUS 3.4 mg/dL (2.5-4.9)
[2023-01-31 07:22] LABS: HEMATOCRIT 24.6 % (35.4-49); MCH 28.2 pg (25.7-33.7); MCHC 32.5 g/dl (32.0-35.9); MEAN CELL VOLUME 86.7 fl (80-96); MEAN PLT VOLUME 7.3 fl (7.5-11.1); PLATELET COUNT 313 10^3/uL (134-434); RBC 2.83 M/mm3 (4.00-5.60); RDW 19.5 % (11.9-15.9); WHITE BLOOD COUNT 6.9 K/mm3 (4.0-10.0)
[2023-01-31] MEDS: ALBUTEROL SO4 0.083% IH SOL 2.5 MG/3 ML VIAL.NEB. NEB SCH ×3 (07:30→21:15)
[2023-01-31] MEDS: SODIUM CHLORIDE FOR INHALATION 3 ML VIAL.NEB IH SCH ×4 (07:30→21:15)
[2023-01-31] MEDS: AMINO ACIDS/PROTEIN HYDROLYS 30 ML LIQUID.PKT GT SCH ×2 (07:58→16:59)
[2023-01-31] MEDS: ASCORBIC ACID 500 MG/5 ML UNIT DOSE CUP PO SCH ×2 (09:00→21:34)
[2023-01-31] MEDS: MULTIVIT-MINERALS ORAL LIQUID GT SCH (09:00)
[2023-01-31] MEDS: FAMOTIDINE 20 MG/2.5 ML ORAL LIQUID GT SCH (09:00)
[2023-01-31] MEDS: OXYBUTYNIN CHLORIDE 5 MG/5 ML PO SCH ×2 (09:00→21:34)
[2023-01-31] MEDS: FUROSEMIDE 40 MG/4 ML INJECTABLE VIAL IVPUSH SCH (09:01)
[2023-01-31] MEDS: ENOXAPARIN NA (PORCINE) 40 MG/0.4 ML DISP.SYRIN SQ SCH (09:01)
[2023-01-31] MEDS: FLUTICASONE PROP 0.05% 16 GM NASAL SPRAY NS SCH ×2 (09:01→21:34)
[2023-01-31] MEDS: methylPREDNISolone NA SUCC 40 MG/1 ML VIAL IVPUSH SCH ×2 (09:01→21:34)
[2023-01-31] MEDS: MUPIROCIN 2% TOPICAL OINTMENT FOR DECOLONIZATION NS SCH ×2 (09:02→21:34)
[2023-01-31] MEDS: COLLAGENASE CLOSTRIDIUM HIST. 30 GRAMS TUBE TP SCH (09:04)
[2023-01-31] MEDS: CHLORHEXIDINE GLUCONATE 4% CLEANSER FOR DECOLONIZATION TP SCH (21:34)
[2023-01-31] MEDS: ATORVASTATIN CA 10 MG TABLET (FP) GT SCH (21:35)
[2023-01-31] MEDS: MELATONIN 1 MG TABLET GT SCH (21:35)
[2023-02-01] MEDS: MEROPENEM 1 GM in DEXTROSE 5%-WATER 100 ML IVPB SCH ×2 (00:59→09:01)
[2023-02-01] MEDS: INSULIN SLIDING SCALE (NOVOLOG) 1 VIAL SQ SCH ×4 (06:05→21:27)
[2023-02-01] MEDS: oxyCODONE HCL 5 MG TABLET PO PRN ×2 (06:06→21:09)
[2023-02-01] MEDS: GABAPENTIN 250 MG/5 ML ORAL SOLUTION, 470 ML BOTTLE GT SCH ×3 (06:06→21:07)
[2023-02-01 07:04] LABS: BASO % 0.1 % (0-2.0); HEMATOCRIT 28.1 % (35.4-49); HEMOGLOBIN 8.9 GM/dL (11.7-16.9); LYMPH % 4.1 % (8-40); MCH 27.8 pg (25.7-33.7); MCHC 31.6 g/dl (32.0-35.9); MEAN CELL VOLUME 88.1 fl (80-96); MEAN PLT VOLUME 7.7 fl (7.5-11.1); MONO % 9.6 % (3.8-10.2); NEUT % 86.2 % (42.8-82.8); PLATELET COUNT 374 10^3/uL (134-434); RBC 3.19 M/mm3 (4.00-5.60); RDW 19.9 % (11.9-15.9); WHITE BLOOD COUNT 15.9 K/mm3 (4.0-10.0)
[2023-02-01 07:32] LABS: POTASSIUM 4.8 mmol/L (3.5-5.1)
[2023-02-01 07:34] LABS: CALCIUM 7.8 mg/dL (8.5-10.1)
[2023-02-01 07:35] LABS: BLOOD UREA NITROGEN 49.4 mg/dL (7-18)
[2023-02-01 07:38] LABS: CREATININE 0.6 mg/dL (0.55-1.3); PHOSPHOROUS 3.1 mg/dL (2.5-4.9)
[2023-02-01 07:39] LABS: BILIRUBIN,TOTAL 0.2 mg/dL (0.2-1); TOT PROT 6.5 g/dl (6.4-8.2)
[2023-02-01 07:43] LABS: ALBUMIN 1.4 g/dl (3.4-5.0)
[2023-02-01] MEDS: AMINO ACIDS/PROTEIN HYDROLYS 30 ML LIQUID.PKT GT SCH ×2 (08:06→16:31)
[2023-02-01] MEDS: SODIUM CHLORIDE FOR INHALATION 3 ML VIAL.NEB IH SCH ×3 (08:08→15:32)
[2023-02-01] MEDS: ALBUTEROL SO4 0.083% IH SOL 2.5 MG/3 ML VIAL.NEB. NEB SCH ×2 (08:08→14:30)
[2023-02-01] MEDS: ASCORBIC ACID 500 MG/5 ML UNIT DOSE CUP PO SCH ×2 (09:01→21:08)
[2023-02-01] MEDS: OXYBUTYNIN CHLORIDE 5 MG/5 ML PO SCH ×2 (09:01→21:08)
[2023-02-01] MEDS: FUROSEMIDE 40 MG/4 ML INJECTABLE VIAL IVPUSH SCH (09:01)
[2023-02-01] MEDS: MULTIVIT-MINERALS ORAL LIQUID GT SCH (09:02)
[2023-02-01] MEDS: ENOXAPARIN NA (PORCINE) 40 MG/0.4 ML DISP.SYRIN SQ SCH (09:02)
[2023-02-01] MEDS: FLUTICASONE PROP 0.05% 16 GM NASAL SPRAY NS SCH ×2 (09:02→21:16)
[2023-02-01] MEDS: FAMOTIDINE 20 MG/2.5 ML ORAL LIQUID GT SCH (09:02)
[2023-02-01] MEDS: methylPREDNISolone NA SUCC 40 MG/1 ML VIAL IVPUSH SCH (09:02)
[2023-02-01] MEDS: MUPIROCIN 2% TOPICAL OINTMENT FOR DECOLONIZATION NS SCH ×2 (09:02→21:16)
[2023-02-01] MEDS ORDERED: INSULIN (NOVOLOG) ASPART 100 UNITS/ML 10ML VIAL ONE ×3 (11:24→21:27)
[2023-02-01] MEDS ORDERED: AMPICILLIN NA/SULBACTAM NA 3 GM in SODIUM CHLORIDE 100 ML IVPB SCH (15:00)
[2023-02-01] MEDS: AMPICILLIN NA/SULBACTAM NA 3 GM in SODIUM CHLORIDE 100 ML IVPB SCH ×2 (15:10→20:09)
[2023-02-01] MEDS: MELATONIN 1 MG TABLET GT SCH (21:08)
[2023-02-01] MEDS: ATORVASTATIN CA 10 MG TABLET (FP) GT SCH (21:08)
[2023-02-01] MEDS: CHLORHEXIDINE GLUCONATE 4% CLEANSER FOR DECOLONIZATION TP SCH (21:09)
[2023-02-02] MEDS: AMPICILLIN NA/SULBACTAM NA 3 GM in SODIUM CHLORIDE 100 ML IVPB SCH ×4 (02:10→20:16)
[2023-02-02] MEDS: oxyCODONE HCL 5 MG TABLET PO PRN ×2 (05:15→20:16)
[2023-02-02] MEDS: GABAPENTIN 250 MG/5 ML ORAL SOLUTION, 470 ML BOTTLE GT SCH ×3 (05:15→21:02)
[2023-02-02] MEDS ORDERED: INSULIN (NOVOLOG) ASPART 100 UNITS/ML 10ML VIAL ONE ×2 (05:25→21:49)
[2023-02-02] MEDS: INSULIN SLIDING SCALE (NOVOLOG) 1 VIAL SQ SCH ×4 (06:03→21:50)
[2023-02-02 07:05] LABS: EOS % 1.3 % (0-4.5); HEMATOCRIT 24.7 % (35.4-49); HEMOGLOBIN 7.8 GM/dL (11.7-16.9); LYMPH % 10.2 % (8-40); MCH 27.9 pg (25.7-33.7); MCHC 31.6 g/dl (32.0-35.9); MEAN CELL VOLUME 88.5 fl (80-96); MEAN PLT VOLUME 7.9 fl (7.5-11.1); MONO % 12.1 % (3.8-10.2); NEUT % 76.4 % (42.8-82.8); PLATELET COUNT 293 10^3/uL (134-434); WHITE BLOOD COUNT 9.1 K/mm3 (4.0-10.0)
[2023-02-02 07:24] LABS: POTASSIUM 4.4 mmol/L (3.5-5.1)
[2023-02-02 07:26] LABS: CALCIUM 7.6 mg/dL (8.5-10.1)
[2023-02-02 07:27] LABS: ALBUMIN 1.2 g/dl (3.4-5.0); BLOOD UREA NITROGEN 40.1 mg/dL (7-18); MAGNESIUM 1.9 mg/dL (1.8-2.4)
[2023-02-02 07:30] LABS: CREATININE 0.5 mg/dL (0.55-1.3); PHOSPHOROUS 2.5 mg/dL (2.5-4.9)
[2023-02-02 07:31] LABS: BILIRUBIN,TOTAL 0.2 mg/dL (0.2-1); TOT PROT 5.6 g/dl (6.4-8.2)
[2023-02-02] MEDS: ALBUTEROL SO4 0.083% IH SOL 2.5 MG/3 ML VIAL.NEB. NEB SCH ×4 (07:50→21:03)
[2023-02-02] MEDS: SODIUM CHLORIDE FOR INHALATION 3 ML VIAL.NEB IH SCH ×6 (07:53→21:51)
[2023-02-02] MEDS: AMINO ACIDS/PROTEIN HYDROLYS 30 ML LIQUID.PKT GT SCH ×2 (09:00→16:56)
[2023-02-02] MEDS: ENOXAPARIN NA (PORCINE) 40 MG/0.4 ML DISP.SYRIN SQ SCH (09:08)
[2023-02-02] MEDS: OXYBUTYNIN CHLORIDE 5 MG/5 ML PO SCH ×2 (09:08→21:02)
[2023-02-02] MEDS: MULTIVIT-MINERALS ORAL LIQUID GT SCH (09:08)
[2023-02-02] MEDS: FUROSEMIDE 40 MG/4 ML INJECTABLE VIAL IVPUSH SCH (09:08)
[2023-02-02] MEDS: ASCORBIC ACID 500 MG/5 ML UNIT DOSE CUP PO SCH ×2 (09:08→21:02)
[2023-02-02] MEDS: FAMOTIDINE 20 MG/2.5 ML ORAL LIQUID GT SCH (09:08)
[2023-02-02] MEDS: MUPIROCIN 2% TOPICAL OINTMENT FOR DECOLONIZATION NS SCH (09:13)
[2023-02-02] MEDS: FLUTICASONE PROP 0.05% 16 GM NASAL SPRAY NS SCH ×2 (09:14→21:02)
[2023-02-02 12:47] LABS: HEMATOCRIT 28.7 % (35.4-49); HEMOGLOBIN 8.8 GM/dL (11.7-16.9); MCH 27.5 pg (25.7-33.7); MCHC 30.9 g/dl (32.0-35.9); MEAN CELL VOLUME 89.2 fl (80-96); MEAN PLT VOLUME 7.7 fl (7.5-11.1); PLATELET COUNT 336 10^3/uL (134-434); RBC 3.22 M/mm3 (4.00-5.60); RDW 20.5 % (11.9-15.9); WHITE BLOOD COUNT 13.8 K/mm3 (4.0-10.0)
[2023-02-02] MEDS: MELATONIN 1 MG TABLET GT SCH (21:02)
[2023-02-02] MEDS: CHLORHEXIDINE GLUCONATE 4% CLEANSER FOR DECOLONIZATION TP SCH (21:02)
[2023-02-02] MEDS: ATORVASTATIN CA 10 MG TABLET (FP) GT SCH (21:02)
[2023-02-03] MEDS: AMPICILLIN NA/SULBACTAM NA 3 GM in SODIUM CHLORIDE 100 ML IVPB SCH ×4 (02:41→21:29)
[2023-02-03] MEDS ORDERED: INSULIN (NOVOLOG) ASPART 100 UNITS/ML 10ML VIAL ONE ×3 (05:24→21:58)
[2023-02-03] MEDS: GABAPENTIN 250 MG/5 ML ORAL SOLUTION, 470 ML BOTTLE GT SCH ×3 (05:31→21:30)
[2023-02-03] MEDS: oxyCODONE HCL 5 MG TABLET PO PRN (05:32)
[2023-02-03] MEDS: INSULIN SLIDING SCALE (NOVOLOG) 1 VIAL SQ SCH ×4 (06:10→21:42)
[2023-02-03 07:22] LABS: BASO % 0.1 % (0-2.0); EOS % 3.8 % (0-4.5); HEMATOCRIT 25.9 % (35.4-49); HEMOGLOBIN 8.2 GM/dL (11.7-16.9); LYMPH % 7.1 % (8-40); MCHC 31.6 g/dl (32.0-35.9); MEAN CELL VOLUME 88.9 fl (80-96); MEAN PLT VOLUME 8.2 fl (7.5-11.1); MONO % 7.6 % (3.8-10.2); NEUT % 81.4 % (42.8-82.8); PLATELET COUNT 329 10^3/uL (134-434); RBC 2.91 M/mm3 (4.00-5.60); RDW 20.8 % (11.9-15.9); WHITE BLOOD COUNT 13.5 K/mm3 (4.0-10.0)
[2023-02-03 07:58] LABS: POTASSIUM 4.3 mmol/L (3.5-5.1)
[2023-02-03 08:02] LABS: ALBUMIN 1.3 g/dl (3.4-5.0); BLOOD UREA NITROGEN 37.3 mg/dL (7-18); CALCIUM 7.6 mg/dL (8.5-10.1); MAGNESIUM 1.9 mg/dL (1.8-2.4)
[2023-02-03 08:05] LABS: CREATININE 0.6 mg/dL (0.55-1.3); PHOSPHOROUS 3.2 mg/dL (2.5-4.9)
[2023-02-03 08:07] LABS: BILIRUBIN,TOTAL 0.2 mg/dL (0.2-1); TOT PROT 5.7 g/dl (6.4-8.2)
[2023-02-03] MEDS: ALBUTEROL SO4 0.083% IH SOL 2.5 MG/3 ML VIAL.NEB. NEB SCH ×3 (08:15→20:30)
[2023-02-03] MEDS: SODIUM CHLORIDE FOR INHALATION 3 ML VIAL.NEB IH SCH ×4 (08:25→21:35)
[2023-02-03] MEDS: AMINO ACIDS/PROTEIN HYDROLYS 30 ML LIQUID.PKT GT SCH ×2 (09:00→16:34)
[2023-02-03] MEDS: MULTIVIT-MINERALS ORAL LIQUID GT SCH (09:11)
[2023-02-03] MEDS: FAMOTIDINE 20 MG/2.5 ML ORAL LIQUID GT SCH (09:11)
[2023-02-03] MEDS: ENOXAPARIN NA (PORCINE) 40 MG/0.4 ML DISP.SYRIN SQ SCH (09:11)
[2023-02-03] MEDS: OXYBUTYNIN CHLORIDE 5 MG/5 ML PO SCH ×2 (09:11→21:31)
[2023-02-03] MEDS: ASCORBIC ACID 500 MG/5 ML UNIT DOSE CUP PO SCH ×2 (09:11→21:31)
[2023-02-03] MEDS: FUROSEMIDE 40 MG/4 ML INJECTABLE VIAL IVPUSH SCH (09:11)
[2023-02-03] MEDS: FLUTICASONE PROP 0.05% 16 GM NASAL SPRAY NS SCH ×2 (09:12→21:29)
[2023-02-03 09:50] LABS: ANISOCYTOSIS 2+; MACROCYTOSIS 0
[2023-02-03] MEDS: CHLORHEXIDINE GLUCONATE 4% CLEANSER FOR DECOLONIZATION TP SCH (21:29)
[2023-02-03] MEDS: MELATONIN 1 MG TABLET GT SCH (21:29)
[2023-02-03] MEDS: ATORVASTATIN CA 10 MG TABLET (FP) GT SCH (21:29)
[2023-02-04] MEDS: AMPICILLIN NA/SULBACTAM NA 3 GM in SODIUM CHLORIDE 100 ML IVPB SCH ×4 (02:52→20:49)
[2023-02-04] MEDS ORDERED: INSULIN (NOVOLOG) ASPART 100 UNITS/ML 10ML VIAL ONE (05:58)
[2023-02-04] MEDS: INSULIN SLIDING SCALE (NOVOLOG) 1 VIAL SQ SCH ×4 (06:03→21:50)
[2023-02-04] MEDS: GABAPENTIN 250 MG/5 ML ORAL SOLUTION, 470 ML BOTTLE GT SCH ×3 (06:04→21:50)
[2023-02-04] MEDS: SODIUM CHLORIDE FOR INHALATION 3 ML VIAL.NEB IH SCH ×4 (07:30→20:35)
[2023-02-04] MEDS: ALBUTEROL SO4 0.083% IH SOL 2.5 MG/3 ML VIAL.NEB. NEB SCH ×3 (07:30→20:35)
[2023-02-04 08:18] LABS: HEMOGLOBIN 8.9 GM/dL (11.7-16.9); MCH 27.7 pg (25.7-33.7); MCHC 31.6 g/dl (32.0-35.9); MEAN CELL VOLUME 87.6 fl (80-96); PLATELET COUNT 372 10^3/uL (134-434); RDW 21.5 % (11.9-15.9); WHITE BLOOD COUNT 14.8 K/mm3 (4.0-10.0)
[2023-02-04 08:29] LABS: POTASSIUM 4.2 mmol/L (3.5-5.1)
[2023-02-04 08:30] LABS: CALCIUM 7.5 mg/dL (8.5-10.1)
[2023-02-04 08:31] LABS: ALBUMIN 1.2 g/dl (3.4-5.0); BLOOD UREA NITROGEN 36.7 mg/dL (7-18); MAGNESIUM 2.1 mg/dL (1.8-2.4)
[2023-02-04 08:34] LABS: CREATININE 0.6 mg/dL (0.55-1.3)
[2023-02-04 08:35] LABS: TOT PROT 5.4 g/dl (6.4-8.2)
[2023-02-04 08:36] LABS: BILIRUBIN,TOTAL 0.2 mg/dL (0.2-1)
[2023-02-04] MEDS: AMINO ACIDS/PROTEIN HYDROLYS 30 ML LIQUID.PKT GT SCH ×2 (09:00→16:34)
[2023-02-04 10:54] LABS: ANISOCYTOSIS 2+; MACROCYTOSIS 0; TARGET CELLS 1+; TEAR DROP CELLS 2+; TOXIC GRANULATION 2+
[2023-02-04] MEDS: oxyCODONE HCL 5 MG TABLET PO PRN (10:56)
[2023-02-04] MEDS: OXYBUTYNIN CHLORIDE 5 MG/5 ML PO SCH ×2 (10:58→21:50)
[2023-02-04] MEDS: FUROSEMIDE 40 MG/4 ML INJECTABLE VIAL IVPUSH SCH (10:58)
[2023-02-04] MEDS: ASCORBIC ACID 500 MG/5 ML UNIT DOSE CUP PO SCH ×2 (10:58→21:51)
[2023-02-04] MEDS: ENOXAPARIN NA (PORCINE) 40 MG/0.4 ML DISP.SYRIN SQ SCH (10:58)
[2023-02-04] MEDS: MULTIVIT-MINERALS ORAL LIQUID GT SCH (10:58)
[2023-02-04] MEDS: FAMOTIDINE 20 MG/2.5 ML ORAL LIQUID GT SCH (10:58)
[2023-02-04] MEDS: FLUTICASONE PROP 0.05% 16 GM NASAL SPRAY NS SCH ×2 (10:59→21:40)
[2023-02-04] MEDS: INSULIN (LEVEMIR) 100 UNITS/ML UNITS SQ SCH ×2 (11:11→21:39)
[2023-02-04] MEDS: CHLORHEXIDINE GLUCONATE 4% CLEANSER FOR DECOLONIZATION TP SCH (21:40)
[2023-02-04] MEDS: ATORVASTATIN CA 10 MG TABLET (FP) GT SCH (21:50)
[2023-02-04] MEDS: MELATONIN 1 MG TABLET GT SCH (21:50)
[2023-02-05] MEDS: AMPICILLIN NA/SULBACTAM NA 3 GM in SODIUM CHLORIDE 100 ML IVPB SCH ×4 (03:01→22:03)
[2023-02-05] MEDS: oxyCODONE HCL 5 MG TABLET PO PRN ×2 (05:43→23:54)
[2023-02-05] MEDS: GABAPENTIN 250 MG/5 ML ORAL SOLUTION, 470 ML BOTTLE GT SCH ×3 (05:43→22:05)
[2023-02-05] MEDS ORDERED: INSULIN (NOVOLOG) ASPART 100 UNITS/ML 10ML VIAL ONE (06:08)
[2023-02-05] MEDS: INSULIN SLIDING SCALE (NOVOLOG) 1 VIAL SQ SCH ×4 (06:09→22:04)
[2023-02-05] MEDS: SODIUM CHLORIDE FOR INHALATION 3 ML VIAL.NEB IH SCH ×4 (07:30→20:22)
[2023-02-05] MEDS: ALBUTEROL SO4 0.083% IH SOL 2.5 MG/3 ML VIAL.NEB. NEB SCH ×3 (07:30→20:22)
[2023-02-05] MEDS: AMINO ACIDS/PROTEIN HYDROLYS 30 ML LIQUID.PKT GT SCH ×2 (08:48→17:12)
[2023-02-05] MEDS: FLUTICASONE PROP 0.05% 16 GM NASAL SPRAY NS SCH ×2 (09:48→22:03)
[2023-02-05] MEDS: MULTIVIT-MINERALS ORAL LIQUID GT SCH (09:48)
[2023-02-05] MEDS: FUROSEMIDE 40 MG/4 ML INJECTABLE VIAL IVPUSH SCH (09:48)
[2023-02-05] MEDS: ASCORBIC ACID 500 MG/5 ML UNIT DOSE CUP PO SCH ×2 (09:49→22:05)
[2023-02-05] MEDS: ENOXAPARIN NA (PORCINE) 40 MG/0.4 ML DISP.SYRIN SQ SCH (09:49)
[2023-02-05] MEDS: OXYBUTYNIN CHLORIDE 5 MG/5 ML PO SCH ×2 (09:49→22:05)
[2023-02-05] MEDS: FAMOTIDINE 20 MG/2.5 ML ORAL LIQUID GT SCH (09:49)
[2023-02-05 12:39] LABS: BASO % 0.2 % (0-2.0); EOS % 2.6 % (0-4.5); HEMOGLOBIN 8.4 GM/dL (11.7-16.9); LYMPH % 6.2 % (8-40); MCH 27.8 pg (25.7-33.7); MCHC 31.1 g/dl (32.0-35.9); MEAN CELL VOLUME 89.4 fl (80-96); MEAN PLT VOLUME 8.4 fl (7.5-11.1); PLATELET COUNT 427 10^3/uL (134-434); RBC 3.01 M/mm3 (4.00-5.60); RDW 21.4 % (11.9-15.9); WHITE BLOOD COUNT 15.7 K/mm3 (4.0-10.0)
[2023-02-05] MEDS: INSULIN (LEVEMIR) 100 UNITS/ML UNITS SQ SCH (22:04)
[2023-02-05] MEDS: CHLORHEXIDINE GLUCONATE 4% CLEANSER FOR DECOLONIZATION TP SCH (22:04)
[2023-02-05] MEDS: MELATONIN 1 MG TABLET GT SCH (22:05)
[2023-02-05] MEDS: ATORVASTATIN CA 10 MG TABLET (FP) GT SCH (22:05)
[2023-02-06] MEDS: AMPICILLIN NA/SULBACTAM NA 3 GM in SODIUM CHLORIDE 100 ML IVPB SCH ×4 (02:19→21:00)
[2023-02-06] MEDS: INSULIN SLIDING SCALE (NOVOLOG) 1 VIAL SQ SCH ×4 (06:11→22:24)
[2023-02-06] MEDS: GABAPENTIN 250 MG/5 ML ORAL SOLUTION, 470 ML BOTTLE GT SCH ×3 (06:12→22:16)
[2023-02-06 07:22] LABS: BASO % 0.3 % (0-2.0); EOS % 2.7 % (0-4.5); HEMATOCRIT 23.1 % (35.4-49); HEMOGLOBIN 7.4 GM/dL (11.7-16.9); LYMPH % 5.8 % (8-40); MCH 28.3 pg (25.7-33.7); MEAN CELL VOLUME 88.4 fl (80-96); MEAN PLT VOLUME 8.5 fl (7.5-11.1); NEUT % 80.2 % (42.8-82.8); PLATELET COUNT 406 10^3/uL (134-434); RBC 2.61 M/mm3 (4.00-5.60); RDW 20.1 % (11.9-15.9); WHITE BLOOD COUNT 15.3 K/mm3 (4.0-10.0)
[2023-02-06] MEDS: AMINO ACIDS/PROTEIN HYDROLYS 30 ML LIQUID.PKT GT SCH ×2 (07:39→17:23)
[2023-02-06 07:44] LABS: MAGNESIUM 2.1 mg/dL (1.8-2.4)
[2023-02-06 07:48] LABS: PHOSPHOROUS 3.5 mg/dL (2.5-4.9)
[2023-02-06 07:49] LABS: ALBUMIN 1.1 g/dl (3.4-5.0); BLOOD UREA NITROGEN 33.9 mg/dL (7-18); CALCIUM 7.6 mg/dL (8.5-10.1); MAGNESIUM 2.2 mg/dL (1.8-2.4)
[2023-02-06 07:52] LABS: CREATININE 0.6 mg/dL (0.55-1.3)
[2023-02-06 07:54] LABS: BILIRUBIN,TOTAL 0.4 mg/dL (0.2-1); TOT PROT 5.1 g/dl (6.4-8.2)
[2023-02-06] MEDS: ALBUTEROL SO4 0.083% IH SOL 2.5 MG/3 ML VIAL.NEB. NEB SCH ×3 (08:29→20:14)
[2023-02-06] MEDS: SODIUM CHLORIDE FOR INHALATION 3 ML VIAL.NEB IH SCH ×4 (08:29→20:14)
[2023-02-06] MEDS: FUROSEMIDE 40 MG/4 ML INJECTABLE VIAL IVPUSH SCH (08:59)
[2023-02-06] MEDS: ASCORBIC ACID 500 MG/5 ML UNIT DOSE CUP PO SCH ×2 (08:59→22:16)
[2023-02-06] MEDS: FLUTICASONE PROP 0.05% 16 GM NASAL SPRAY NS SCH ×2 (09:00→22:18)
[2023-02-06] MEDS: MULTIVIT-MINERALS ORAL LIQUID GT SCH (09:00)
[2023-02-06] MEDS: ENOXAPARIN NA (PORCINE) 40 MG/0.4 ML DISP.SYRIN SQ SCH (09:00)
[2023-02-06] MEDS: FAMOTIDINE 20 MG/2.5 ML ORAL LIQUID GT SCH (09:35)
[2023-02-06] MEDS: OXYBUTYNIN CHLORIDE 5 MG/5 ML PO SCH ×2 (09:35→22:16)
[2023-02-06] MEDS ORDERED: INSULIN (NOVOLOG) ASPART 100 UNITS/ML 10ML VIAL ONE ×2 (11:21→22:23)
[2023-02-06] MEDS: oxyCODONE HCL 5 MG TABLET PO PRN (20:00)
[2023-02-06] MEDS: ATORVASTATIN CA 10 MG TABLET (FP) GT SCH (22:16)
[2023-02-06] MEDS: MELATONIN 1 MG TABLET GT SCH (22:16)
[2023-02-06] MEDS: CHLORHEXIDINE GLUCONATE 4% CLEANSER FOR DECOLONIZATION TP SCH (22:17)
[2023-02-06] MEDS: INSULIN (LEVEMIR) 100 UNITS/ML UNITS SQ SCH (22:23)
[2023-02-06] MEDS ORDERED: ACETAMINOPHEN 1000 MG/100 ML BAG IVPB ONE (22:55)
[2023-02-07] MEDS: AMPICILLIN NA/SULBACTAM NA 3 GM in SODIUM CHLORIDE 100 ML IVPB SCH ×4 (02:00→20:12)
[2023-02-07] MEDS: INSULIN SLIDING SCALE (NOVOLOG) 1 VIAL SQ SCH ×4 (06:00→21:23)
[2023-02-07] MEDS: GABAPENTIN 250 MG/5 ML ORAL SOLUTION, 470 ML BOTTLE GT SCH ×3 (06:01→21:18)
[2023-02-07] MEDS: oxyCODONE HCL 5 MG TABLET PO PRN ×3 (06:20→22:34)
[2023-02-07] MEDS ORDERED: INSULIN (NOVOLOG) ASPART 100 UNITS/ML 10ML VIAL ONE (06:29)
[2023-02-07 07:13] LABS: BASO % 0.5 % (0-2.0); EOS % 1.2 % (0-4.5); HEMATOCRIT 23.4 % (35.4-49); HEMOGLOBIN 7.4 GM/dL (11.7-16.9); LYMPH % 6.4 % (8-40); MCH 28.2 pg (25.7-33.7); MCHC 31.7 g/dl (32.0-35.9); MEAN PLT VOLUME 8.1 fl (7.5-11.1); MONO % 11.3 % (3.8-10.2); NEUT % 80.6 % (42.8-82.8); PLATELET COUNT 467 10^3/uL (134-434); RBC 2.63 M/mm3 (4.00-5.60); RDW 20.6 % (11.9-15.9); WHITE BLOOD COUNT 18.6 K/mm3 (4.0-10.0)
[2023-02-07 07:35] LABS: POTASSIUM 3.8 mmol/L (3.5-5.1)
[2023-02-07 07:37] LABS: CALCIUM 7.6 mg/dL (8.5-10.1)
[2023-02-07 07:41] LABS: CREATININE 0.7 mg/dL (0.55-1.3)
[2023-02-07] MEDS: SODIUM CHLORIDE FOR INHALATION 3 ML VIAL.NEB IH SCH ×4 (08:57→21:07)
[2023-02-07] MEDS: ALBUTEROL SO4 0.083% IH SOL 2.5 MG/3 ML VIAL.NEB. NEB SCH ×3 (08:57→20:05)
[2023-02-07 09:01] LABS: ANISOCYTOSIS 1+; MACROCYTOSIS 1+
[2023-02-07] MEDS: AMINO ACIDS/PROTEIN HYDROLYS 30 ML LIQUID.PKT GT SCH ×2 (09:37→16:40)
[2023-02-07] MEDS: FLUTICASONE PROP 0.05% 16 GM NASAL SPRAY NS SCH ×2 (09:38→21:04)
[2023-02-07] MEDS: FAMOTIDINE 20 MG/2.5 ML ORAL LIQUID GT SCH (09:38)
[2023-02-07] MEDS: ENOXAPARIN NA (PORCINE) 40 MG/0.4 ML DISP.SYRIN SQ SCH (09:38)
[2023-02-07] MEDS: OXYBUTYNIN CHLORIDE 5 MG/5 ML PO SCH ×2 (09:38→21:06)
[2023-02-07] MEDS: FUROSEMIDE 40 MG/4 ML INJECTABLE VIAL IVPUSH SCH (09:38)
[2023-02-07] MEDS: ASCORBIC ACID 500 MG/5 ML UNIT DOSE CUP PO SCH ×2 (09:38→21:05)
[2023-02-07] MEDS: MULTIVIT-MINERALS ORAL LIQUID GT SCH (09:39)
[2023-02-07] MEDS ORDERED: ACETAMINOPHEN 1000 MG/100 ML BAG IVPB ONE (15:50)
[2023-02-07] MEDS: CHLORHEXIDINE GLUCONATE 4% CLEANSER FOR DECOLONIZATION TP SCH (21:04)
[2023-02-07] MEDS: MELATONIN 1 MG TABLET GT SCH (21:05)
[2023-02-07] MEDS: ATORVASTATIN CA 10 MG TABLET (FP) GT SCH (21:05)
[2023-02-07] MEDS: INSULIN (LEVEMIR) 100 UNITS/ML UNITS SQ SCH (21:24)
[2023-02-08] MEDS: AMPICILLIN NA/SULBACTAM NA 3 GM in SODIUM CHLORIDE 100 ML IVPB SCH ×4 (03:29→22:51)
[2023-02-08] MEDS: GABAPENTIN 250 MG/5 ML ORAL SOLUTION, 470 ML BOTTLE GT SCH ×3 (05:05→21:47)
[2023-02-08] MEDS: INSULIN SLIDING SCALE (NOVOLOG) 1 VIAL SQ SCH ×4 (06:10→21:48)
[2023-02-08 07:08] LABS: HEMATOCRIT 20.8 % (35.4-49); MCH 28.4 pg (25.7-33.7); MCHC 32.5 g/dl (32.0-35.9); MEAN CELL VOLUME 87.4 fl (80-96); MEAN PLT VOLUME 7.6 fl (7.5-11.1); PLATELET COUNT 396 10^3/uL (134-434); RBC 2.38 M/mm3 (4.00-5.60); RDW 20.2 % (11.9-15.9); WHITE BLOOD COUNT 15.8 K/mm3 (4.0-10.0)
[2023-02-08 07:23] LABS: HEMOGLOBIN 6.8 GM/dL (11.7-16.9)
[2023-02-08 07:24] LABS: POTASSIUM 3.9 mmol/L (3.5-5.1)
[2023-02-08 07:32] LABS: CREATININE 0.7 mg/dL (0.55-1.3)
[2023-02-08 07:33] LABS: BILIRUBIN,TOTAL 0.2 mg/dL (0.2-1); TOT PROT 5.1 g/dl (6.4-8.2)
[2023-02-08 07:34] LABS: CALCIUM 7.9 mg/dL (8.5-10.1)
[2023-02-08 07:35] LABS: MAGNESIUM 2.2 mg/dL (1.8-2.4); PHOSPHOROUS 4.3 mg/dL (2.5-4.9)
[2023-02-08] MEDS: ALBUTEROL SO4 0.083% IH SOL 2.5 MG/3 ML VIAL.NEB. NEB SCH ×3 (08:30→20:05)
[2023-02-08] MEDS: SODIUM CHLORIDE FOR INHALATION 3 ML VIAL.NEB IH SCH ×4 (08:30→20:05)
[2023-02-08] MEDS: ENOXAPARIN NA (PORCINE) 40 MG/0.4 ML DISP.SYRIN SQ SCH (09:25)
[2023-02-08] MEDS: ASCORBIC ACID 500 MG/5 ML UNIT DOSE CUP PO SCH ×2 (09:26→21:48)
[2023-02-08] MEDS: AMINO ACIDS/PROTEIN HYDROLYS 30 ML LIQUID.PKT GT SCH ×2 (09:26→18:00)
[2023-02-08] MEDS: FUROSEMIDE 40 MG/4 ML INJECTABLE VIAL IVPUSH SCH (09:26)
[2023-02-08] MEDS: MULTIVIT-MINERALS ORAL LIQUID GT SCH (09:26)
[2023-02-08] MEDS: FLUTICASONE PROP 0.05% 16 GM NASAL SPRAY NS SCH ×2 (09:27→21:49)
[2023-02-08] MEDS: FAMOTIDINE 20 MG/2.5 ML ORAL LIQUID GT SCH (11:22)
[2023-02-08] MEDS: OXYBUTYNIN CHLORIDE 5 MG/5 ML PO SCH ×2 (11:22→22:36)
[2023-02-08] MEDS ORDERED: INSULIN (NOVOLOG) ASPART 100 UNITS/ML 10ML VIAL ONE (21:21)
[2023-02-08] MEDS: CHLORHEXIDINE GLUCONATE 4% CLEANSER FOR DECOLONIZATION TP SCH (21:45)
[2023-02-08] MEDS: INSULIN (LEVEMIR) 100 UNITS/ML UNITS SQ SCH (21:46)
[2023-02-08] MEDS: MELATONIN 1 MG TABLET GT SCH (21:47)
[2023-02-08] MEDS: ATORVASTATIN CA 10 MG TABLET (FP) GT SCH (21:47)
[2023-02-08] MEDS ORDERED: INSULIN (LEVEMIR) 100 UNITS/ML UNITS SQ ONE (21:52)
[2023-02-09] MEDS: AMPICILLIN NA/SULBACTAM NA 3 GM in SODIUM CHLORIDE 100 ML IVPB SCH ×4 (03:21→21:03)
[2023-02-09] MEDS: GABAPENTIN 250 MG/5 ML ORAL SOLUTION, 470 ML BOTTLE GT SCH ×3 (05:52→22:49)
[2023-02-09] MEDS: INSULIN SLIDING SCALE (NOVOLOG) 1 VIAL SQ SCH ×4 (06:34→22:49)
[2023-02-09] MEDS: AMINO ACIDS/PROTEIN HYDROLYS 30 ML LIQUID.PKT GT SCH ×2 (09:36→17:36)
[2023-02-09] MEDS: FUROSEMIDE 40 MG/4 ML INJECTABLE VIAL IVPUSH SCH (09:36)
[2023-02-09] MEDS: ENOXAPARIN NA (PORCINE) 40 MG/0.4 ML DISP.SYRIN SQ SCH (09:36)
[2023-02-09] MEDS: FAMOTIDINE 20 MG/2.5 ML ORAL LIQUID GT SCH (09:36)
[2023-02-09] MEDS: ASCORBIC ACID 500 MG/5 ML UNIT DOSE CUP PO SCH ×2 (09:36→21:06)
[2023-02-09] MEDS: OXYBUTYNIN CHLORIDE 5 MG/5 ML PO SCH ×2 (09:37→21:06)
[2023-02-09] MEDS: FLUTICASONE PROP 0.05% 16 GM NASAL SPRAY NS SCH ×2 (09:38→21:04)
[2023-02-09] MEDS: MULTIVIT-MINERALS ORAL LIQUID GT SCH (09:42)
[2023-02-09] MEDS: ALBUTEROL SO4 0.083% IH SOL 2.5 MG/3 ML VIAL.NEB. NEB SCH ×3 (09:57→19:36)
[2023-02-09] MEDS ORDERED: oxyCODONE HCL 5 MG TABLET PO PRN (11:52)
[2023-02-09] MEDS ORDERED: ACETAMINOPHEN 1000 MG/100 ML BAG IVPB ONE (11:53)
[2023-02-09] MEDS ORDERED: ACETAMINOPHEN 1000 MG/100 ML BAG IVPB PRN (11:54)
[2023-02-09] MEDS ORDERED: guaiFENesin/D-M SUGAR-FREE/ACLHOL-FREE 5 ML UNIT DOSE GT PRN (18:55)
[2023-02-09] MEDS ORDERED: ONDANSETRON 4 MG/2 ML VIAL IVPUSH PRN (18:55)
[2023-02-09] MEDS: SODIUM CHLORIDE FOR INHALATION 3 ML VIAL.NEB IH SCH (19:36)
[2023-02-09] MEDS: CHLORHEXIDINE GLUCONATE 4% CLEANSER FOR DECOLONIZATION TP SCH (21:05)
[2023-02-09] MEDS: ATORVASTATIN CA 10 MG TABLET (FP) GT SCH (21:05)
[2023-02-09] MEDS: MELATONIN 1 MG TABLET GT SCH (21:05)
[2023-02-09] MEDS: INSULIN (LEVEMIR) 100 UNITS/ML UNITS SQ SCH (22:48)
[2023-02-10] MEDS ORDERED: AMPICILLIN NA/SULBACTAM NA 3 GM VIAL ONE (02:15)
[2023-02-10] MEDS: AMPICILLIN NA/SULBACTAM NA 3 GM in SODIUM CHLORIDE 100 ML IVPB SCH ×4 (02:45→23:55)
[2023-02-10] MEDS: INSULIN SLIDING SCALE (NOVOLOG) 1 VIAL SQ SCH ×3 (06:07→16:33)
[2023-02-10] MEDS: GABAPENTIN 250 MG/5 ML ORAL SOLUTION, 470 ML BOTTLE GT SCH ×2 (06:08→14:00)
[2023-02-10] MEDS: SODIUM CHLORIDE FOR INHALATION 3 ML VIAL.NEB IH SCH ×4 (07:20→22:09)
[2023-02-10] MEDS: ALBUTEROL SO4 0.083% IH SOL 2.5 MG/3 ML VIAL.NEB. NEB SCH ×3 (07:20→20:50)
[2023-02-10] MEDS: AMINO ACIDS/PROTEIN HYDROLYS 30 ML LIQUID.PKT GT SCH ×2 (09:11→16:32)
[2023-02-10] MEDS: FUROSEMIDE 40 MG/4 ML INJECTABLE VIAL IVPUSH SCH (09:49)
[2023-02-10] MEDS: ENOXAPARIN NA (PORCINE) 40 MG/0.4 ML DISP.SYRIN SQ SCH (09:50)
[2023-02-10] MEDS: ASCORBIC ACID 500 MG/5 ML UNIT DOSE CUP PO SCH ×2 (09:50→23:57)
[2023-02-10] MEDS: MULTIVIT-MINERALS ORAL LIQUID GT SCH (09:50)
[2023-02-10] MEDS: FAMOTIDINE 20 MG/2.5 ML ORAL LIQUID GT SCH (09:52)
[2023-02-10] MEDS: OXYBUTYNIN CHLORIDE 5 MG/5 ML PO SCH ×2 (09:52→23:57)
[2023-02-10] MEDS: FLUTICASONE PROP 0.05% 16 GM NASAL SPRAY NS SCH ×2 (09:53→23:58)
[2023-02-10 12:03] LABS: BASO % 0.4 % (0-2.0); EOS % 1.2 % (0-4.5); HEMATOCRIT 23.2 % (35.4-49); HEMOGLOBIN 7.6 GM/dL (11.7-16.9); MCH 28.4 pg (25.7-33.7); MCHC 32.5 g/dl (32.0-35.9); MEAN CELL VOLUME 87.2 fl (80-96); MEAN PLT VOLUME 7.7 fl (7.5-11.1); MONO % 8.2 % (3.8-10.2); NEUT % 84.2 % (42.8-82.8); PLATELET COUNT 411 10^3/uL (134-434); RBC 2.66 M/mm3 (4.00-5.60); WHITE BLOOD COUNT 13.2 K/mm3 (4.0-10.0)
[2023-02-10 12:22] LABS: POTASSIUM 4.2 mmol/L (3.5-5.1)
[2023-02-10 12:28] LABS: CALCIUM 7.9 mg/dL (8.5-10.1)
[2023-02-10 12:29] LABS: ALBUMIN 1.1 g/dl (3.4-5.0); BLOOD UREA NITROGEN 39.3 mg/dL (7-18)
[2023-02-10 12:30] LABS: BILIRUBIN,TOTAL 0.2 mg/dL (0.2-1)
[2023-02-10 12:32] LABS: CREATININE 0.7 mg/dL (0.55-1.3)
[2023-02-10 12:34] LABS: TOT PROT 5.4 g/dl (6.4-8.2)
[2023-02-10] MEDS: ACETYLCYSTEINE 20% 200MG/ML 4 ML VIAL *FOR ORAL / INH USE ONLY NEB SCH ×2 (16:00→20:50)
[2023-02-10] MEDS ORDERED: ACETAMINOPHEN 500 MG TABLET (FP) GT PRN (17:12)
[2023-02-10 17:39] LABS: POTASSIUM 4.3 mmol/L (3.5-5.1)
[2023-02-10 17:42] LABS: ALBUMIN 1.2 g/dl (3.4-5.0)
[2023-02-10 17:45] LABS: CREATININE 0.7 mg/dL (0.55-1.3)
[2023-02-10 17:46] LABS: BILIRUBIN,TOTAL 0.2 mg/dL (0.2-1)
[2023-02-10 17:47] LABS: TOT PROT 5.6 g/dl (6.4-8.2)
[2023-02-10] MEDS: ATORVASTATIN CA 10 MG TABLET (FP) GT SCH (23:56)
[2023-02-10] MEDS: MELATONIN 1 MG TABLET GT SCH (23:56)
[2023-02-10] MEDS: CHLORHEXIDINE GLUCONATE 4% CLEANSER FOR DECOLONIZATION TP SCH (23:58)
[2023-02-11] MEDS: INSULIN (LEVEMIR) 100 UNITS/ML UNITS SQ SCH ×2 (00:22→21:18)
[2023-02-11] MEDS: INSULIN SLIDING SCALE (NOVOLOG) 1 VIAL SQ SCH ×5 (00:23→21:18)
[2023-02-11] MEDS: AMPICILLIN NA/SULBACTAM NA 3 GM in SODIUM CHLORIDE 100 ML IVPB SCH ×4 (04:45→21:15)
[2023-02-11] MEDS: GABAPENTIN 250 MG/5 ML ORAL SOLUTION, 470 ML BOTTLE GT SCH ×4 (05:24→21:17)
[2023-02-11] MEDS: SODIUM CHLORIDE FOR INHALATION 3 ML VIAL.NEB IH SCH ×4 (08:49→21:38)
[2023-02-11] MEDS: ACETYLCYSTEINE 20% 200MG/ML 4 ML VIAL *FOR ORAL / INH USE ONLY NEB SCH ×4 (08:50→21:00)
[2023-02-11] MEDS: ALBUTEROL SO4 0.083% IH SOL 2.5 MG/3 ML VIAL.NEB. NEB SCH ×4 (08:50→21:00)
[2023-02-11] MEDS: ASCORBIC ACID 500 MG/5 ML UNIT DOSE CUP PO SCH ×2 (09:47→21:16)
[2023-02-11] MEDS: FUROSEMIDE 40 MG/4 ML INJECTABLE VIAL IVPUSH SCH (09:47)
[2023-02-11] MEDS: ENOXAPARIN NA (PORCINE) 40 MG/0.4 ML DISP.SYRIN SQ SCH (09:48)
[2023-02-11] MEDS: AMINO ACIDS/PROTEIN HYDROLYS 30 ML LIQUID.PKT GT SCH ×2 (09:48→18:40)
[2023-02-11] MEDS: MULTIVIT-MINERALS ORAL LIQUID GT SCH (09:48)
[2023-02-11] MEDS: guaiFENesin/D-M SUGAR-FREE/ACLHOL-FREE 5 ML UNIT DOSE GT SCH ×2 (09:49→16:07)
[2023-02-11] MEDS: OXYBUTYNIN CHLORIDE 5 MG/5 ML PO SCH ×2 (09:49→21:16)
[2023-02-11 09:54] LABS: HEMATOCRIT 22.4 % (35.4-49); HEMOGLOBIN 7.2 GM/dL (11.7-16.9); MCH 28.2 pg (25.7-33.7); MCHC 32.4 g/dl (32.0-35.9); MEAN CELL VOLUME 86.9 fl (80-96); MEAN PLT VOLUME 7.6 fl (7.5-11.1); PLATELET COUNT 402 10^3/uL (134-434); RBC 2.57 M/mm3 (4.00-5.60); RDW 19.6 % (11.9-15.9); WHITE BLOOD COUNT 13.8 K/mm3 (4.0-10.0)
[2023-02-11] MEDS: FAMOTIDINE 20 MG/2.5 ML ORAL LIQUID GT SCH (09:54)
[2023-02-11] MEDS: FLUTICASONE PROP 0.05% 16 GM NASAL SPRAY NS SCH ×2 (10:12→21:32)
[2023-02-11 10:14] LABS: MAGNESIUM 2.4 mg/dL (1.8-2.4)
[2023-02-11 10:17] LABS: PHOSPHOROUS 4.2 mg/dL (2.5-4.9)
[2023-02-11] MEDS ORDERED: AMPICILLIN NA/SULBACTAM NA 3 GM VIAL ONE (20:48)
[2023-02-11] MEDS: MELATONIN 1 MG TABLET GT SCH (21:16)
[2023-02-11] MEDS: ATORVASTATIN CA 10 MG TABLET (FP) GT SCH (21:16)
[2023-02-11] MEDS: CHLORHEXIDINE GLUCONATE 4% CLEANSER FOR DECOLONIZATION TP SCH (21:32)
[2023-02-12] MEDS: guaiFENesin/D-M SUGAR-FREE/ACLHOL-FREE 5 ML UNIT DOSE GT SCH ×3 (00:06→17:09)
[2023-02-12] MEDS: AMPICILLIN NA/SULBACTAM NA 3 GM in SODIUM CHLORIDE 100 ML IVPB SCH ×4 (02:47→21:24)
[2023-02-12] MEDS: INSULIN SLIDING SCALE (NOVOLOG) 1 VIAL SQ SCH ×4 (06:05→21:39)
[2023-02-12] MEDS: GABAPENTIN 250 MG/5 ML ORAL SOLUTION, 470 ML BOTTLE GT SCH ×3 (06:06→21:25)
[2023-02-12] MEDS: ALBUTEROL SO4 0.083% IH SOL 2.5 MG/3 ML VIAL.NEB. NEB SCH ×4 (08:10→20:40)
[2023-02-12] MEDS: ACETYLCYSTEINE 20% 200MG/ML 4 ML VIAL *FOR ORAL / INH USE ONLY NEB SCH ×4 (08:10→20:40)
[2023-02-12] MEDS: SODIUM CHLORIDE FOR INHALATION 3 ML VIAL.NEB IH SCH ×4 (08:20→20:45)
[2023-02-12] MEDS: AMINO ACIDS/PROTEIN HYDROLYS 30 ML LIQUID.PKT GT SCH ×2 (11:05→17:13)
[2023-02-12] MEDS: MULTIVIT-MINERALS ORAL LIQUID GT SCH (11:07)
[2023-02-12] MEDS: ENOXAPARIN NA (PORCINE) 40 MG/0.4 ML DISP.SYRIN SQ SCH (11:08)
[2023-02-12] MEDS: ASCORBIC ACID 500 MG/5 ML UNIT DOSE CUP PO SCH ×2 (11:08→21:25)
[2023-02-12] MEDS: FLUTICASONE PROP 0.05% 16 GM NASAL SPRAY NS SCH ×2 (11:09→22:21)
[2023-02-12] MEDS: FUROSEMIDE 40 MG/4 ML INJECTABLE VIAL IVPUSH SCH (11:09)
[2023-02-12] MEDS: OXYBUTYNIN CHLORIDE 5 MG/5 ML PO SCH ×2 (11:10→21:26)
[2023-02-12] MEDS: FAMOTIDINE 20 MG/2.5 ML ORAL LIQUID GT SCH (11:11)
[2023-02-12] MEDS: ATORVASTATIN CA 10 MG TABLET (FP) GT SCH (21:25)
[2023-02-12] MEDS: MELATONIN 1 MG TABLET GT SCH (21:25)
[2023-02-12] MEDS: INSULIN (LEVEMIR) 100 UNITS/ML UNITS SQ SCH (22:58)
[2023-02-13] MEDS: guaiFENesin/D-M SUGAR-FREE/ACLHOL-FREE 5 ML UNIT DOSE GT SCH ×3 (01:02→17:01)
[2023-02-13] MEDS: AMPICILLIN NA/SULBACTAM NA 3 GM in SODIUM CHLORIDE 100 ML IVPB SCH ×4 (02:15→21:38)
[2023-02-13] MEDS: GABAPENTIN 250 MG/5 ML ORAL SOLUTION, 470 ML BOTTLE GT SCH ×2 (05:52→14:00)
[2023-02-13] MEDS: INSULIN SLIDING SCALE (NOVOLOG) 1 VIAL SQ SCH ×4 (06:04→21:39)
[2023-02-13] MEDS: ACETYLCYSTEINE 20% 200MG/ML 4 ML VIAL *FOR ORAL / INH USE ONLY NEB SCH ×4 (08:49→20:35)
[2023-02-13] MEDS: SODIUM CHLORIDE FOR INHALATION 3 ML VIAL.NEB IH SCH ×4 (08:49→20:35)
[2023-02-13] MEDS: ALBUTEROL SO4 0.083% IH SOL 2.5 MG/3 ML VIAL.NEB. NEB SCH ×4 (08:50→20:35)
[2023-02-13 09:43] LABS: BASO % 0.7 % (0-2.0); EOS % 1.2 % (0-4.5); HEMATOCRIT 21.4 % (35.4-49); LYMPH % 8.2 % (8-40); MCH 27.7 pg (25.7-33.7); MCHC 31.2 g/dl (32.0-35.9); MEAN CELL VOLUME 88.8 fl (80-96); MEAN PLT VOLUME 7.8 fl (7.5-11.1); MONO % 9.5 % (3.8-10.2); NEUT % 80.4 % (42.8-82.8); PLATELET COUNT 353 10^3/uL (134-434); RBC 2.41 M/mm3 (4.00-5.60); RDW 19.3 % (11.9-15.9); WHITE BLOOD COUNT 13.9 K/mm3 (4.0-10.0)
[2023-02-13 09:48] LABS: HEMOGLOBIN 6.7 GM/dL (11.7-16.9)
[2023-02-13 11:05] LABS: BLOOD UREA NITROGEN 35.9 mg/dL (7-18); CALCIUM 7.8 mg/dL (8.5-10.1); CREATININE 0.7 mg/dL (0.55-1.3); MAGNESIUM 2.3 mg/dL (1.8-2.4); PHOSPHOROUS 3.5 mg/dL (2.5-4.9); POTASSIUM 3.8 mmol/L (3.5-5.1)
[2023-02-13] MEDS: ENOXAPARIN NA (PORCINE) 40 MG/0.4 ML DISP.SYRIN SQ SCH (11:13)
[2023-02-13] MEDS: FUROSEMIDE 40 MG/4 ML INJECTABLE VIAL IVPUSH SCH (11:13)
[2023-02-13] MEDS: ASCORBIC ACID 500 MG/5 ML UNIT DOSE CUP PO SCH ×2 (11:14→21:39)
[2023-02-13] MEDS: AMINO ACIDS/PROTEIN HYDROLYS 30 ML LIQUID.PKT GT SCH ×2 (11:18→18:17)
[2023-02-13] MEDS: OXYBUTYNIN CHLORIDE 5 MG/5 ML PO SCH ×2 (11:19→21:41)
[2023-02-13] MEDS: FAMOTIDINE 20 MG/2.5 ML ORAL LIQUID GT SCH (11:19)
[2023-02-13] MEDS: MULTIVIT-MINERALS ORAL LIQUID GT SCH (11:20)
[2023-02-13] MEDS: FLUTICASONE PROP 0.05% 16 GM NASAL SPRAY NS SCH ×2 (11:22→21:38)
[2023-02-13] MEDS ORDERED: ACETYLCYSTEINE 20% 200MG/ML 4 ML VIAL *FOR ORAL / INH USE ONLY NEB ONE (15:00)
[2023-02-13] MEDS: INSULIN (LEVEMIR) 100 UNITS/ML UNITS SQ SCH (21:38)
[2023-02-13] MEDS: MELATONIN 1 MG TABLET GT SCH (21:38)
[2023-02-13] MEDS: ATORVASTATIN CA 10 MG TABLET (FP) GT SCH (21:39)
[2023-02-13] MEDS ORDERED: INSULIN (NOVOLOG) ASPART 100 UNITS/ML 10ML VIAL ONE (21:42)
[2023-02-14] MEDS: guaiFENesin/D-M SUGAR-FREE/ACLHOL-FREE 5 ML UNIT DOSE GT SCH ×3 (01:40→18:37)
[2023-02-14] MEDS: GABAPENTIN 250 MG/5 ML ORAL SOLUTION, 470 ML BOTTLE GT SCH ×4 (01:44→21:35)
[2023-02-14] MEDS: AMPICILLIN NA/SULBACTAM NA 3 GM in SODIUM CHLORIDE 100 ML IVPB SCH ×4 (03:47→21:29)
[2023-02-14] MEDS: INSULIN SLIDING SCALE (NOVOLOG) 1 VIAL SQ SCH ×4 (07:10→21:52)
[2023-02-14] MEDS ORDERED: DEXTROSE 50%-WATER 25 GM/50 ML DISP.SYRIN ONE (07:11)
[2023-02-14] MEDS ORDERED: INSULIN (LEVEMIR) 100 UNITS/ML UNITS SQ SCH ×2 (07:26→07:32)
[2023-02-14] MEDS ORDERED: DEXTROSE 50%-WATER - 25 GM/50 ML VIAL IVPUSH ONE (07:33)
[2023-02-14 07:42] LABS: BASO % 0.9 % (0-2.0); HEMATOCRIT 26.6 % (35.4-49); HEMOGLOBIN 8.3 GM/dL (11.7-16.9); LYMPH % 6.5 % (8-40); MCH 27.7 pg (25.7-33.7); MCHC 31.3 g/dl (32.0-35.9); MEAN CELL VOLUME 88.5 fl (80-96); MEAN PLT VOLUME 8.2 fl (7.5-11.1); MONO % 7.3 % (3.8-10.2); NEUT % 84.3 % (42.8-82.8); PLATELET COUNT 365 10^3/uL (134-434); RBC 3.01 M/mm3 (4.00-5.60); RDW 18.6 % (11.9-15.9); WHITE BLOOD COUNT 16.8 K/mm3 (4.0-10.0)
[2023-02-14 08:11] LABS: POTASSIUM 3.9 mmol/L (3.5-5.1)
[2023-02-14] MEDS: SODIUM CHLORIDE FOR INHALATION 3 ML VIAL.NEB IH SCH ×4 (08:17→20:39)
[2023-02-14] MEDS: ACETYLCYSTEINE 20% 200MG/ML 4 ML VIAL *FOR ORAL / INH USE ONLY NEB SCH ×4 (08:17→20:39)
[2023-02-14] MEDS: ALBUTEROL SO4 0.083% IH SOL 2.5 MG/3 ML VIAL.NEB. NEB SCH ×4 (08:17→20:39)
[2023-02-14 08:18] LABS: CALCIUM 8.2 mg/dL (8.5-10.1)
[2023-02-14 08:19] LABS: BLOOD UREA NITROGEN 38.7 mg/dL (7-18); MAGNESIUM 2.3 mg/dL (1.8-2.4)
[2023-02-14 08:22] LABS: CREATININE 0.7 mg/dL (0.55-1.3); PHOSPHOROUS 4.7 mg/dL (2.5-4.9)
[2023-02-14] MEDS: AMINO ACIDS/PROTEIN HYDROLYS 30 ML LIQUID.PKT GT SCH ×2 (08:43→17:45)
[2023-02-14] MEDS: ENOXAPARIN NA (PORCINE) 40 MG/0.4 ML DISP.SYRIN SQ SCH (08:59)
[2023-02-14] MEDS: FAMOTIDINE 20 MG/2.5 ML ORAL LIQUID GT SCH (08:59)
[2023-02-14] MEDS: FUROSEMIDE 40 MG/4 ML INJECTABLE VIAL IVPUSH SCH (08:59)
[2023-02-14] MEDS: OXYBUTYNIN CHLORIDE 5 MG/5 ML PO SCH ×2 (08:59→21:34)
[2023-02-14] MEDS: ASCORBIC ACID 500 MG/5 ML UNIT DOSE CUP PO SCH ×2 (09:00→21:34)
[2023-02-14] MEDS: MULTIVIT-MINERALS ORAL LIQUID GT SCH (09:00)
[2023-02-14 09:31] VITALS: TEMP 97.8
[2023-02-14] MEDS: MELATONIN 1 MG TABLET GT SCH (21:33)
[2023-02-14] MEDS: FLUTICASONE PROP 0.05% 16 GM NASAL SPRAY NS SCH (21:35)
[2023-02-14] MEDS: ATORVASTATIN CA 10 MG TABLET (FP) GT SCH (21:35)
[2023-02-15] MEDS: guaiFENesin/D-M SUGAR-FREE/ACLHOL-FREE 5 ML UNIT DOSE GT SCH ×3 (00:40→16:27)
[2023-02-15] MEDS: AMPICILLIN NA/SULBACTAM NA 3 GM in SODIUM CHLORIDE 100 ML IVPB SCH ×3 (03:00→16:16)
[2023-02-15] MEDS: GABAPENTIN 250 MG/5 ML ORAL SOLUTION, 470 ML BOTTLE GT SCH ×2 (06:57→15:00)
[2023-02-15] MEDS: INSULIN SLIDING SCALE (NOVOLOG) 1 VIAL SQ SCH ×3 (06:58→17:35)
[2023-02-15 08:00] LABS: CHLORIDE 111 mmol/L (98-107); POTASSIUM 3.7 mmol/L (3.5-5.1); SODIUM 150 mmol/L (136-145)
[2023-02-15] MEDS: AMINO ACIDS/PROTEIN HYDROLYS 30 ML LIQUID.PKT GT SCH ×2 (08:00→17:35)
[2023-02-15 08:02] LABS: ALBUMIN 1.2 g/dl (3.4-5.0)
[2023-02-15 08:03] LABS: ANION GAP 5 MMOL/L (8-16); BLOOD UREA NITROGEN 37.3 mg/dL (7-18); CO2 33 mmol/L (21-32); GLUCOSE,RANDOM 149 mg/dL (74-106)
[2023-02-15 08:05] LABS: CREATININE 0.7 mg/dL (0.55-1.3); SGOT/AST 10 U/L (15-37); SGPT/ALT 12 U/L (13-61)
[2023-02-15 08:07] LABS: BILIRUBIN,TOTAL < 0.1 mg/dL (0.2-1); TOT PROT 5.6 g/dl (6.4-8.2)
[2023-02-15 08:08] LABS: ALK PHOS 93 U/L (45-117)
[2023-02-15 08:17] LABS: HEMATOCRIT 26.9 % (35.4-49); HEMOGLOBIN 8.4 GM/dL (11.7-16.9); MCH 27.5 pg (25.7-33.7); MCHC 31.2 g/dl (32.0-35.9); MEAN CELL VOLUME 87.9 fl (80-96); MEAN PLT VOLUME 8.4 fl (7.5-11.1); PLATELET COUNT 374 10^3/uL (134-434); RBC 3.06 M/mm3 (4.00-5.60); RDW 18.6 % (11.9-15.9); WHITE BLOOD COUNT 11.4 K/mm3 (4.0-10.0)
[2023-02-15] MEDS: ACETYLCYSTEINE 20% 200MG/ML 4 ML VIAL *FOR ORAL / INH USE ONLY NEB SCH ×2 (08:30→12:00)
[2023-02-15] MEDS: ALBUTEROL SO4 0.083% IH SOL 2.5 MG/3 ML VIAL.NEB. NEB SCH ×2 (08:30→12:00)
[2023-02-15] MEDS: OXYBUTYNIN CHLORIDE 5 MG/5 ML PO SCH (10:00)
[2023-02-15] MEDS: FAMOTIDINE 20 MG/2.5 ML ORAL LIQUID GT SCH (10:16)
[2023-02-15] MEDS: FLUTICASONE PROP 0.05% 16 GM NASAL SPRAY NS SCH (10:48)
[2023-02-15] MEDS: ASCORBIC ACID 500 MG/5 ML UNIT DOSE CUP PO SCH (10:59)
[2023-02-15] MEDS: MULTIVIT-MINERALS ORAL LIQUID GT SCH (10:59)
[2023-02-15] MEDS: FUROSEMIDE 40 MG/4 ML INJECTABLE VIAL IVPUSH SCH (11:02)
[2023-02-15] MEDS: ENOXAPARIN NA (PORCINE) 40 MG/0.4 ML DISP.SYRIN SQ SCH (11:02)
[2023-02-15 13:38] VITALS: BP 113/66; PULSE 85
[2023-02-15 17:21] VITALS: RESP 12
== END 2023-02-15 17:45 | disposition short-term general hospital (02) | DRG 853 ==
LOC: JER 03:13 → INTOOBSV 07:02 → JERBED 07:02 → OBSVTOIN 09:58 → J6S 11:28 → JICU 01-28 14:18 → J5S 02-09 18:31 → J2W 02-13 14:25
PROVIDERS: ADMIT Internal Medicine
PROC: 5A1955Z Respiratory Ventilation, Greater than 96 Consecutive Hours (ICD-10-PCS; 2022-12-25)
PROC: 30233N1 Transfusion of Nonautologous Red Blood Cells into Peripheral Vein, Percutaneous Approach (ICD-10-PCS; 2022-12-25)
PROC: 0D20XUZ Change Feeding Device in Upper Intestinal Tract, External Approach (ICD-10-PCS; 2023-01-20)
PROC: 0KBP0ZZ Excision of Left Hip Muscle, Open Approach (ICD-10-PCS; 2023-01-27)
PROC: 0KBN0ZZ Excision of Right Hip Muscle, Open Approach (ICD-10-PCS; 2023-01-27)
PROC: 0B21XFZ Change Tracheostomy Device in Trachea, External Approach (ICD-10-PCS; 2023-01-27)
PROC: 0QB10ZZ Excision of Sacrum, Open Approach (ICD-10-PCS; principal; 2023-01-27 13:15)
DX: A41.81 Sepsis due to Enterococcus (principal); E43 Unspecified severe protein-calorie malnutrition; L89.154 Pressure ulcer of sacral region, stage 4; J18.9 Pneumonia, unspecified organism; R65.21 Severe sepsis with septic shock; J96.22 Acute and chronic respiratory failure with hypercapnia; J96.21 Acute and chronic respiratory failure with hypoxia; K92.2 Gastrointestinal hemorrhage, unspecified; N39.0 Urinary tract infection, site not specified; J44.0 Chronic obstructive pulmonary disease with (acute) lower respiratory infection; L97.909 Non-pressure chronic ulcer of unspecified part of unspecified lower leg with unspecified severity; E87.0 Hyperosmolality and hypernatremia; E11.52 Type 2 diabetes mellitus with diabetic peripheral angiopathy with gangrene; G93.40 Encephalopathy, unspecified; J90 Pleural effusion, not elsewhere classified; T85.528A Displacement of other gastrointestinal prosthetic devices, implants and grafts, initial encounter; J98.11 Atelectasis; R64 Cachexia; D63.8 Anemia in other chronic diseases classified elsewhere; Z93.0 Tracheostomy status; G35 Multiple sclerosis; Y83.9 Surgical procedure, unspecified as the cause of abnormal reaction of the patient, or of later complication, without mention of misadventure at the time of the procedure; K21.9 Gastro-esophageal reflux disease without esophagitis; D72.829 Elevated white blood cell count, unspecified; E11.65 Type 2 diabetes mellitus with hyperglycemia
CPT/HCPCS: 36415; 36430; 36600; 49440; 71045-TC-FY; 73610-TC-LT-FY; 73630-TC-LT; 74176-TC; 80048; 80053; 81003; 82272; 82728; 82803; 82962; 83540; 83550; 83605; 83735; 84100; 84466; 84484; 85025; 85027; 85610; 85651; 86850; 86900; 86901; 86922; 87040; 87070; 87077; 87086; 87184; 87186; 87205; 87635; 87899; 88304-TC; 93005; 93010; 93970-TC; 93971; 94002; 94640; 94760; 97162-GP; 99285-25; G0378; G0480; P9058

== ENCOUNTER 2023-03-30 15:46 | Inpatient (IN) | payer OTHER, BC ==
[2023-03-30 17:09] LABS: BASO % 1.3 % (0-2.0); EOS % 0.8 % (0-4.5); HEMATOCRIT 22.8 % (35.4-49); LYMPH % 5.8 % (8-40); MCH 28.1 pg (25.7-33.7); MCHC 30.2 g/dl (32.0-35.9); MEAN PLT VOLUME 7.6 fl (7.5-11.1); MONO % 7.3 % (3.8-10.2); NEUT % 84.8 % (42.8-82.8); PLATELET COUNT 581 10^3/uL (134-434); RBC 2.45 M/mm3 (4.00-5.60); RDW 20.4 % (11.9-15.9); WHITE BLOOD COUNT 25.6 K/mm3 (4.0-10.0)
[2023-03-30 17:18] LABS: HEMOGLOBIN 6.9 GM/dL (11.7-16.9)
[2023-03-30 17:47] LABS: ANISOCYTOSIS 3+; MACROCYTOSIS 1+; TARGET CELLS 1+
[2023-03-30] MEDS ORDERED: SODIUM CHLORIDE 0.9% 500 ML INFUS.BAG IV ONE (17:57)
[2023-03-30 18:11] LABS: VENOUS BASE EXCESS 3.5 mmol/L (-2-2); VENOUS O2 SATURATION 20.3 % (70-80); VENOUS PH 7.257 (7.310-7.410)
[2023-03-30] MEDS ORDERED: PIPERACILLIN/TAZOB 4.5 GM 4.5 GM in DEXTROSE 5%-WATER 100 ML IVPB ONE (18:14)
[2023-03-30] MEDS ORDERED: VANCOMYCIN 1,000 MG in DEXTROSE 5%-WATER - 250 ML IVPB ONE (18:14)
[2023-03-30 18:19] LABS: VENOUS PCO2 75.4 mmHg (38-52)
[2023-03-30] MEDS ORDERED: PIPERACILLIN/TAZOB 4.5 GM 4.5 GM/100 ML BAG IVPB ONE (18:20)
[2023-03-30 18:31] LABS: LACTIC ACID 2.7 mmol/L (0.4-2.0)
[2023-03-30 18:37] LABS: INR 1.42 (0.83-1.09); PROTHROMBIN TIME (PATIENT) 16.4 SEC (9.7-13.0)
[2023-03-30 18:40] LABS: ACTIVATED PTT 31.2 SECONDS (25.2-36.5)
[2023-03-30] MEDS: ALBUTEROL SO4 2.5/IPRATROPIUM 0.5 INH SOL 3 ML VIAL.NEB. NEB SCH ×3 (18:40→18:57)
[2023-03-30] MEDS ORDERED: DEXAMETHASONE SOD PHOSPHATE 10 MG/1 ML VIAL IVPUSH ONE (18:40)
[2023-03-30] MEDS ORDERED: DEXAMETHASONE SOD PHOSPHATE 10 MG/1 ML VIAL ONE (18:49)
[2023-03-30] MEDS ORDERED: VANCOMYCIN 1 GRAM (PRE-DOCKED) 1,000 MG/250 ML BAG IVPB ONE (18:57)
[2023-03-30 21:37] LABS: POTASSIUM 4.5 mmol/L (3.5-5.1)
[2023-03-30 21:38] LABS: BLOOD UREA NITROGEN 67.1 mg/dL (7-18)
[2023-03-30 21:39] LABS: ALBUMIN 1.2 g/dl (3.4-5.0)
[2023-03-30 21:42] LABS: CREATININE 1.9 mg/dL (0.55-1.3)
[2023-03-30 21:44] LABS: TOT PROT 7.2 g/dl (6.4-8.2)
[2023-03-30 21:48] LABS: BILIRUBIN,TOTAL 0.2 mg/dL (0.2-1)
[2023-03-30 23:02] LABS: EPI CELLS 3 /uL (0-25.1); HYALINE CASTS 1 /uL (0-3.1); URINE APPEARANCE TURBID; URINE BILIRUBIN NEGATIVE (NEGATIVE); URINE COLOR YELLOW; URINE GLUCOSE (UA) NEGATIVE (NEGATIVE); URINE KETONE NEGATIVE (NEGATIVE); URINE LEUK ESTERASE 3+ (NEGATIVE); URINE NITRITE POSITIVE (NEGATIVE); URINE PROTEIN 2+ (NEGATIVE); URINE UROBILINOGEN 0.2 mg/dL (0.2-1.0); URINE WBC 1858 /uL (0-25.8)
[2023-03-30 23:16] LABS: URINE BACTERIA 951.4 /uL (0-1359); URINE RBC 29.5 /uL (0-23.9)
[2023-03-30 23:57] LABS: LACTIC ACID 2.5 mmol/L (0.4-2.0)
[2023-03-31] MEDS ORDERED: PIPERACILLIN/TAZOB 3.375 GM 3.375 GM in DEXTROSE 5%-WATER - 50 ML IVPB SCH (02:00)
[2023-03-31 02:14] VITALS: BMI 18.3
[2023-03-31] MEDS: PIPERACILLIN/TAZOB 3.375 GM 3.375 GM in DEXTROSE 5%-WATER - 50 ML IVPB SCH ×3 (06:38→17:08)
[2023-03-31] MEDS ORDERED: SODIUM CHLORIDE 500 ML IV STA (09:23)
[2023-03-31] MEDS: SODIUM CHLORIDE 1,000 ML IV SCH (09:52)
[2023-03-31] MEDS ORDERED: FLU VACCINE (FLULAVAL) PF 60 MCG/0.5 ML SYRINGE 2023-2024 IM ONE (10:00)
[2023-03-31] MEDS: COLLAGENASE CLOSTRIDIUM HIST. 30 GRAMS TUBE TP SCH (11:30)
[2023-03-31 14:07] LABS: HEMATOCRIT 29.2 % (35.4-49); HEMOGLOBIN 9.1 GM/dL (11.7-16.9); MCH 27.7 pg (25.7-33.7); MCHC 31.4 g/dl (32.0-35.9); MEAN CELL VOLUME 88.3 fl (80-96); MEAN PLT VOLUME 7.8 fl (7.5-11.1); PLATELET COUNT 592 10^3/uL (134-434); RDW 20.1 % (11.9-15.9); WHITE BLOOD COUNT 25.8 K/mm3 (4.0-10.0)
[2023-03-31 14:24] LABS: POTASSIUM 4.3 mmol/L (3.5-5.1)
[2023-03-31 14:25] LABS: BLOOD UREA NITROGEN 65.5 mg/dL (7-18); CALCIUM 8.6 mg/dL (8.5-10.1); MAGNESIUM 2.4 mg/dL (1.8-2.4)
[2023-03-31 14:28] LABS: CREATININE 1.7 mg/dL (0.55-1.3)
[2023-03-31] MEDS ORDERED: ONDANSETRON 4 MG TABLET PO PRN (14:55)
[2023-03-31] MEDS ORDERED: oxyCODONE HCL 5 MG TABLET GT PRN (14:55)
[2023-03-31] MEDS ORDERED: VENLAFAXINE HCL 75 MG E.R. CAPSULES PO SCH (15:00)
[2023-03-31 15:11] LABS: ANISOCYTOSIS 1+; MACROCYTOSIS 1+
[2023-03-31] MEDS: ALBUTEROL SO4 2.5/IPRATROPIUM 0.5 INH SOL 3 ML VIAL.NEB. NEB SCH ×2 (16:23→20:45)
[2023-03-31] MEDS: INSULIN SLIDING SCALE (NOVOLOG) 1 VIAL SQ SCH ×2 (16:49→21:52)
[2023-03-31] MEDS: ACETYLCYSTEINE NEB SCH ×2 (17:42→20:49)
[2023-03-31] MEDS ORDERED: VANCOMYCIN/WATER FOR INJ (PEG) 1,000 MG/200 ML BAG IVPB SCH (19:00)
[2023-03-31] MEDS: VENLAFAXINE HCL 37.5 MG TABLET NGT SCH (21:44)
[2023-03-31] MEDS: OXYBUTYNIN CHLORIDE 5 MG TABLET NGT SCH (21:44)
[2023-03-31] MEDS: GABAPENTIN 250 MG/5 ML ORAL SOLUTION, 470 ML BOTTLE GT SCH (21:45)
[2023-03-31] MEDS: FLUTICASONE PROP 0.05% 16 GM NASAL SPRAY NS SCH (21:45)
[2023-03-31] MEDS: SENNOSIDES 8.8 MG/5 ML SYRUP GT SCH (21:49)
[2023-03-31] MEDS: ATORVASTATIN CA 10 MG TABLET (FP) GT SCH (21:49)
[2023-03-31] MEDS: MELATONIN 1 MG TABLET GT SCH (21:50)
[2023-03-31] MEDS: ASCORBIC ACID 500 MG/5 ML UNIT DOSE CUP GT SCH (21:50)
[2023-04-01] MEDS: PIPERACILLIN/TAZOB 3.375 GM 3.375 GM in DEXTROSE 5%-WATER - 50 ML IVPB SCH ×3 (01:00→18:04)
[2023-04-01] MEDS ORDERED: PIPERACILLIN/TAZOB 3.375 GM 3.375 GM in DEXTROSE 5%-WATER - 50 ML IVPB SCH (02:00)
[2023-04-01] MEDS: SODIUM CHLORIDE 1,000 ML IV SCH ×2 (02:00→11:22)
[2023-04-01] MEDS: INSULIN SLIDING SCALE (NOVOLOG) 1 VIAL SQ SCH ×5 (04:11→23:13)
[2023-04-01] MEDS: GABAPENTIN 250 MG/5 ML ORAL SOLUTION, 470 ML BOTTLE GT SCH ×3 (05:40→21:05)
[2023-04-01 07:48] LABS: HEMATOCRIT 27.6 % (35.4-49); HEMOGLOBIN 8.9 GM/dL (11.7-16.9); MCH 28.7 pg (25.7-33.7); MCHC 32.2 g/dl (32.0-35.9); MEAN CELL VOLUME 89.1 fl (80-96); MEAN PLT VOLUME 7.8 fl (7.5-11.1); PLATELET COUNT 564 10^3/uL (134-434); RDW 20.5 % (11.9-15.9); WHITE BLOOD COUNT 23.2 K/mm3 (4.0-10.0)
[2023-04-01] MEDS: ALBUTEROL SO4 2.5/IPRATROPIUM 0.5 INH SOL 3 ML VIAL.NEB. NEB SCH ×3 (08:00→16:32)
[2023-04-01 08:03] LABS: POTASSIUM 4.1 mmol/L (3.5-5.1)
[2023-04-01 08:05] LABS: CALCIUM 8.2 mg/dL (8.5-10.1); MAGNESIUM 2.6 mg/dL (1.8-2.4)
[2023-04-01 08:06] LABS: BLOOD UREA NITROGEN 63.3 mg/dL (7-18)
[2023-04-01 08:09] LABS: CREATININE 1.6 mg/dL (0.55-1.3); PHOSPHOROUS 4.8 mg/dL (2.5-4.9)
[2023-04-01] MEDS: ACETYLCYSTEINE 20% 200MG/ML 4 ML VIAL *FOR ORAL / INH USE ONLY NEB SCH ×5 (09:00→20:51)
[2023-04-01] MEDS: POLYETHYLENE GLYCOL (HEALTHYLAX) 3350 17 GM PACKET GT SCH (10:00)
[2023-04-01] MEDS: ASCORBIC ACID 500 MG/5 ML UNIT DOSE CUP GT SCH ×2 (10:00→21:06)
[2023-04-01] MEDS ORDERED: PATIENT'S OWN MEDICATION (NON-FORMULARY) (Lactulose [Lactulose] 10 GM/15 ML Solution) GT SCH (10:00)
[2023-04-01] MEDS: OXYBUTYNIN CHLORIDE 5 MG TABLET NGT SCH ×2 (10:01→21:06)
[2023-04-01] MEDS: VENLAFAXINE HCL 37.5 MG TABLET NGT SCH ×2 (10:01→21:06)
[2023-04-01] MEDS: FLUTICASONE PROP 0.05% 16 GM NASAL SPRAY NS SCH ×2 (10:03→21:06)
[2023-04-01 10:10] LABS: ANISOCYTOSIS 2+; MACROCYTOSIS 0; OVALOCYTE 2+
[2023-04-01] MEDS ORDERED: ACETYLCYSTEINE 20% 200MG/ML 4 ML VIAL *FOR ORAL / INH USE ONLY NEB SCH (13:15)
[2023-04-01] MEDS: SODIUM CHLORIDE 0.45% 1,000 ML IV SCH (15:00)
[2023-04-01] MEDS: COLLAGENASE CLOSTRIDIUM HIST. 30 GRAMS TUBE TP SCH (16:48)
[2023-04-01] MEDS ORDERED: VANCOMYCIN/WATER FOR INJ (PEG) 1,000 MG/200 ML BAG IVPB SCH (19:00)
[2023-04-01] MEDS: ALBUTEROL SO4 0.083% IH SOL 2.5 MG/3 ML VIAL.NEB. NEB PRN (20:52)
[2023-04-01] MEDS: ATORVASTATIN CA 10 MG TABLET (FP) GT SCH (21:06)
[2023-04-01] MEDS: MELATONIN 1 MG TABLET GT SCH (21:06)
[2023-04-01] MEDS: SENNOSIDES 8.8 MG/5 ML SYRUP GT SCH (21:07)
[2023-04-02] MEDS: PIPERACILLIN/TAZOB 3.375 GM 3.375 GM in DEXTROSE 5%-WATER - 50 ML IVPB SCH ×2 (01:32→09:43)
[2023-04-02] MEDS: GABAPENTIN 250 MG/5 ML ORAL SOLUTION, 470 ML BOTTLE GT SCH ×3 (06:17→21:19)
[2023-04-02] MEDS: INSULIN SLIDING SCALE (NOVOLOG) 1 VIAL SQ SCH ×4 (06:18→23:05)
[2023-04-02] MEDS: ALBUTEROL SO4 0.083% IH SOL 2.5 MG/3 ML VIAL.NEB. NEB PRN ×3 (08:27→20:29)
[2023-04-02] MEDS: ACETYLCYSTEINE 20% 200MG/ML 4 ML VIAL *FOR ORAL / INH USE ONLY NEB SCH ×4 (08:27→20:29)
[2023-04-02] MEDS: OXYBUTYNIN CHLORIDE 5 MG TABLET NGT SCH ×2 (09:42→21:20)
[2023-04-02] MEDS: VENLAFAXINE HCL 37.5 MG TABLET NGT SCH ×2 (09:42→21:20)
[2023-04-02] MEDS: POLYETHYLENE GLYCOL (HEALTHYLAX) 3350 17 GM PACKET GT SCH (09:43)
[2023-04-02] MEDS: ASCORBIC ACID 500 MG/5 ML UNIT DOSE CUP GT SCH ×2 (09:43→21:21)
[2023-04-02] MEDS: COLLAGENASE CLOSTRIDIUM HIST. 30 GRAMS TUBE TP SCH (09:44)
[2023-04-02] MEDS: FLUTICASONE PROP 0.05% 16 GM NASAL SPRAY NS SCH ×2 (09:44→21:21)
[2023-04-02 10:35] LABS: BASO % 0.3 % (0-2.0); EOS % 3.1 % (0-4.5); HEMATOCRIT 30.5 % (35.4-49); HEMOGLOBIN 9.6 GM/dL (11.7-16.9); LYMPH % 4.8 % (8-40); MCH 28.4 pg (25.7-33.7); MCHC 31.3 g/dl (32.0-35.9); MEAN CELL VOLUME 90.8 fl (80-96); MEAN PLT VOLUME 7.6 fl (7.5-11.1); MONO % 7.3 % (3.8-10.2); NEUT % 84.5 % (42.8-82.8); PLATELET COUNT 512 10^3/uL (134-434); RBC 3.36 M/mm3 (4.00-5.60); RDW 19.8 % (11.9-15.9); WHITE BLOOD COUNT 14.3 K/mm3 (4.0-10.0)
[2023-04-02 10:49] LABS: POTASSIUM 3.7 mmol/L (3.5-5.1)
[2023-04-02 10:51] LABS: MAGNESIUM 2.2 mg/dL (1.8-2.4)
[2023-04-02 10:54] LABS: CREATININE 1.3 mg/dL (0.55-1.3); PHOSPHOROUS 3.1 mg/dL (2.5-4.9)
[2023-04-02] MEDS ORDERED: MEROPENEM 1 GM in DEXTROSE 5%-WATER 100 ML IVPB SCH (13:15)
[2023-04-02] MEDS: HEPARIN NA (PORCINE) 5,000 UNITS/ML 1ML VIAL SQ SCH ×2 (14:21→21:20)
[2023-04-02] MEDS: SODIUM CHLORIDE 0.45% 1,000 ML IV SCH (14:22)
[2023-04-02] MEDS ORDERED: MEROPENEM 1 GM in DEXTROSE 5%-WATER 100 ML IVPB ONE (14:30)
[2023-04-02] MEDS: MELATONIN 1 MG TABLET GT SCH (21:20)
[2023-04-02] MEDS: SENNOSIDES 8.8 MG/5 ML SYRUP GT SCH (21:21)
[2023-04-02] MEDS: ATORVASTATIN CA 10 MG TABLET (FP) GT SCH (21:21)
[2023-04-03] MEDS: MEROPENEM 2 GM in DEXTROSE 5%-WATER 100 ML IVPB SCH ×2 (02:06→14:53)
[2023-04-03] MEDS: HEPARIN NA (PORCINE) 5,000 UNITS/ML 1ML VIAL SQ SCH ×2 (06:14→14:53)
[2023-04-03] MEDS: GABAPENTIN 250 MG/5 ML ORAL SOLUTION, 470 ML BOTTLE GT SCH ×3 (06:15→21:45)
[2023-04-03] MEDS: SODIUM CHLORIDE 0.45% 1,000 ML IV SCH ×2 (06:15→15:56)
[2023-04-03] MEDS: INSULIN SLIDING SCALE (NOVOLOG) 1 VIAL SQ SCH ×3 (06:15→18:00)
[2023-04-03 07:49] LABS: BASO % 0.6 % (0-2.0); EOS % 3.3 % (0-4.5); HEMATOCRIT 30.1 % (35.4-49); HEMOGLOBIN 9.5 GM/dL (11.7-16.9); LYMPH % 6.1 % (8-40); MCH 28.2 pg (25.7-33.7); MCHC 31.4 g/dl (32.0-35.9); MEAN CELL VOLUME 89.6 fl (80-96); MEAN PLT VOLUME 7.9 fl (7.5-11.1); MONO % 7.1 % (3.8-10.2); NEUT % 82.9 % (42.8-82.8); PLATELET COUNT 497 10^3/uL (134-434); RBC 3.36 M/mm3 (4.00-5.60); RDW 19.8 % (11.9-15.9)
[2023-04-03] MEDS: ALBUTEROL SO4 0.083% IH SOL 2.5 MG/3 ML VIAL.NEB. NEB PRN ×4 (08:05→20:19)
[2023-04-03] MEDS: ACETYLCYSTEINE 20% 200MG/ML 4 ML VIAL *FOR ORAL / INH USE ONLY NEB SCH ×4 (08:05→20:19)
[2023-04-03 08:07] LABS: POTASSIUM 3.8 mmol/L (3.5-5.1)
[2023-04-03 08:09] LABS: CALCIUM 7.6 mg/dL (8.5-10.1)
[2023-04-03 08:10] LABS: BLOOD UREA NITROGEN 37.6 mg/dL (7-18); MAGNESIUM 1.9 mg/dL (1.8-2.4)
[2023-04-03 08:13] LABS: PHOSPHOROUS 2.6 mg/dL (2.5-4.9)
[2023-04-03] MEDS: VENLAFAXINE HCL 37.5 MG TABLET NGT SCH ×2 (09:32→21:45)
[2023-04-03] MEDS: ASCORBIC ACID 500 MG/5 ML UNIT DOSE CUP GT SCH ×2 (09:32→21:45)
[2023-04-03] MEDS: POLYETHYLENE GLYCOL (HEALTHYLAX) 3350 17 GM PACKET GT SCH (09:33)
[2023-04-03] MEDS: OXYBUTYNIN CHLORIDE 5 MG TABLET NGT SCH ×2 (09:33→21:45)
[2023-04-03] MEDS: COLLAGENASE CLOSTRIDIUM HIST. 30 GRAMS TUBE TP SCH (14:52)
[2023-04-03] MEDS ORDERED: MEROPENEM 1 GM in DEXTROSE 5%-WATER 100 ML IVPB SCH (18:00)
[2023-04-03] MEDS: FLUTICASONE PROP 0.05% 16 GM NASAL SPRAY NS SCH ×2 (20:44→21:45)
[2023-04-03] MEDS: SENNOSIDES 8.8 MG/5 ML SYRUP GT SCH (21:11)
[2023-04-03] MEDS: MELATONIN 1 MG TABLET GT SCH (21:45)
[2023-04-03] MEDS: ATORVASTATIN CA 10 MG TABLET (FP) GT SCH (21:45)
[2023-04-04] MEDS: INSULIN SLIDING SCALE (NOVOLOG) 1 VIAL SQ SCH ×5 (00:14→23:55)
[2023-04-04] MEDS ORDERED: ACETAMINOPHEN 1000 MG/100 ML BAG IVPB ONE (01:33)
[2023-04-04] MEDS: MEROPENEM 2 GM in DEXTROSE 5%-WATER 100 ML IVPB SCH ×2 (01:33→13:34)
[2023-04-04] MEDS ORDERED: VANCOMYCIN/WATER FOR INJ (PEG) 1,000 MG/200 ML BAG IVPB SCH (02:30)
[2023-04-04] MEDS: ALBUTEROL SO4 0.083% IH SOL 2.5 MG/3 ML VIAL.NEB. NEB PRN ×3 (07:10→15:07)
[2023-04-04] MEDS: ACETYLCYSTEINE 20% 200MG/ML 4 ML VIAL *FOR ORAL / INH USE ONLY NEB SCH ×4 (07:10→20:02)
[2023-04-04 08:04] LABS: BASO % 0.6 % (0-2.0); EOS % 1.9 % (0-4.5); HEMATOCRIT 33.2 % (35.4-49); HEMOGLOBIN 10.2 GM/dL (11.7-16.9); LYMPH % 10.2 % (8-40); MCHC 30.7 g/dl (32.0-35.9); MEAN CELL VOLUME 91.1 fl (80-96); MEAN PLT VOLUME 7.9 fl (7.5-11.1); MONO % 10.9 % (3.8-10.2); NEUT % 76.4 % (42.8-82.8); PLATELET COUNT 485 10^3/uL (134-434); RBC 3.64 M/mm3 (4.00-5.60); RDW 19.7 % (11.9-15.9); WHITE BLOOD COUNT 18.2 K/mm3 (4.0-10.0)
[2023-04-04] MEDS ORDERED: LIDOCAINE HCL 1%, 10 MG/ML (20ML VIAL) ONE (08:05)
[2023-04-04 08:27] LABS: ALBUMIN 1.1 g/dl (3.4-5.0); BLOOD UREA NITROGEN 29.5 mg/dL (7-18)
[2023-04-04 08:30] LABS: CREATININE 0.8 mg/dL (0.55-1.3); PHOSPHOROUS 3.4 mg/dL (2.5-4.9)
[2023-04-04 08:31] LABS: BILIRUBIN,TOTAL 0.3 mg/dL (0.2-1)
[2023-04-04] MEDS: ASCORBIC ACID 500 MG/5 ML UNIT DOSE CUP GT SCH ×2 (09:18→21:05)
[2023-04-04] MEDS: GABAPENTIN 250 MG/5 ML ORAL SOLUTION, 470 ML BOTTLE GT SCH ×3 (09:19→21:05)
[2023-04-04] MEDS: VENLAFAXINE HCL 37.5 MG TABLET NGT SCH ×2 (09:19→21:05)
[2023-04-04] MEDS: OXYBUTYNIN CHLORIDE 5 MG TABLET NGT SCH ×2 (09:19→21:04)
[2023-04-04] MEDS: POLYETHYLENE GLYCOL (HEALTHYLAX) 3350 17 GM PACKET GT SCH (09:20)
[2023-04-04] MEDS: COLLAGENASE CLOSTRIDIUM HIST. 30 GRAMS TUBE TP SCH (09:20)
[2023-04-04] MEDS: FLUTICASONE PROP 0.05% 16 GM NASAL SPRAY NS SCH ×2 (13:34→21:05)
[2023-04-04] MEDS ORDERED: DEXTROSE 50%-WATER 25 GM/50 ML DISP.SYRIN ONE (17:48)
[2023-04-04] MEDS ORDERED: DEXTROSE 50%-WATER 25 GM/50 ML DISP.SYRIN IVPUSH ONE (18:02)
[2023-04-04] MEDS: MELATONIN 1 MG TABLET GT SCH (21:04)
[2023-04-04] MEDS: SENNOSIDES 8.8 MG/5 ML SYRUP GT SCH (21:05)
[2023-04-04] MEDS: ATORVASTATIN CA 10 MG TABLET (FP) GT SCH (21:05)
[2023-04-05] MEDS: MEROPENEM 2 GM in DEXTROSE 5%-WATER 100 ML IVPB SCH (01:30)
[2023-04-05] MEDS ORDERED: VANCOMYCIN/WATER FOR INJ (PEG) 1,000 MG/200 ML BAG IVPB SCH (02:30)
[2023-04-05] MEDS: GABAPENTIN 250 MG/5 ML ORAL SOLUTION, 470 ML BOTTLE GT SCH ×3 (06:08→21:56)
[2023-04-05] MEDS: INSULIN SLIDING SCALE (NOVOLOG) 1 VIAL SQ SCH ×3 (06:08→17:22)
[2023-04-05 07:44] LABS: BASO % 0.6 % (0-2.0); EOS % 2.5 % (0-4.5); HEMATOCRIT 30.1 % (35.4-49); HEMOGLOBIN 9.5 GM/dL (11.7-16.9); LYMPH % 5.9 % (8-40); MCH 28.5 pg (25.7-33.7); MCHC 31.4 g/dl (32.0-35.9); MEAN CELL VOLUME 90.7 fl (80-96); MEAN PLT VOLUME 7.8 fl (7.5-11.1); MONO % 7.4 % (3.8-10.2); NEUT % 83.6 % (42.8-82.8); PLATELET COUNT 494 10^3/uL (134-434); RBC 3.32 M/mm3 (4.00-5.60); RDW 19.8 % (11.9-15.9); WHITE BLOOD COUNT 15.1 K/mm3 (4.0-10.0)
[2023-04-05 07:55] LABS: POTASSIUM 4.3 mmol/L (3.5-5.1)
[2023-04-05] MEDS: ACETYLCYSTEINE 20% 200MG/ML 4 ML VIAL *FOR ORAL / INH USE ONLY NEB SCH ×4 (08:00→21:11)
[2023-04-05] MEDS: ALBUTEROL SO4 0.083% IH SOL 2.5 MG/3 ML VIAL.NEB. NEB PRN ×3 (08:00→15:20)
[2023-04-05 08:01] LABS: ALBUMIN 1.1 g/dl (3.4-5.0); BLOOD UREA NITROGEN 26.7 mg/dL (7-18); CREATININE 0.7 mg/dL (0.55-1.3)
[2023-04-05 08:02] LABS: BILIRUBIN,TOTAL 0.3 mg/dL (0.2-1); CALCIUM 8.5 mg/dL (8.5-10.1)
[2023-04-05] MEDS: ASCORBIC ACID 500 MG/5 ML UNIT DOSE CUP GT SCH ×2 (09:48→21:56)
[2023-04-05] MEDS: VENLAFAXINE HCL 37.5 MG TABLET NGT SCH ×2 (09:48→21:52)
[2023-04-05] MEDS: POLYETHYLENE GLYCOL (HEALTHYLAX) 3350 17 GM PACKET GT SCH (09:49)
[2023-04-05] MEDS: COLLAGENASE CLOSTRIDIUM HIST. 30 GRAMS TUBE TP SCH (09:49)
[2023-04-05] MEDS: FLUTICASONE PROP 0.05% 16 GM NASAL SPRAY NS SCH ×2 (09:49→21:55)
[2023-04-05] MEDS: OXYBUTYNIN CHLORIDE 5 MG TABLET NGT SCH ×2 (09:49→21:55)
[2023-04-05] MEDS ORDERED: MEROPENEM 2 GM in DEXTROSE 5%-WATER 100 ML IVPB SCH (10:15)
[2023-04-05] MEDS: DEXTROSE 5%-0.45% SALINE 1,000 ML IV SCH (13:13)
[2023-04-05] MEDS ORDERED: ACETAMINOPHEN 1000 MG/100 ML BAG IVPB PRN (14:24)
[2023-04-05] MEDS: MEROPENEM 1 GM in DEXTROSE 5%-WATER 100 ML IVPB SCH ×2 (15:38→21:56)
[2023-04-05] MEDS: ATORVASTATIN CA 10 MG TABLET (FP) GT SCH (21:52)
[2023-04-05] MEDS: MELATONIN 1 MG TABLET GT SCH (21:52)
[2023-04-05] MEDS: SENNOSIDES 8.8 MG/5 ML SYRUP GT SCH (21:56)
[2023-04-05] MEDS ORDERED: ALBUTEROL SO4 0.083% IH SOL 2.5 MG/3 ML VIAL.NEB. NEB ONE (23:42)
[2023-04-06] MEDS: ACETYLCYSTEINE 20% 200MG/ML 4 ML VIAL *FOR ORAL / INH USE ONLY NEB SCH ×5 (00:40→20:52)
[2023-04-06] MEDS: INSULIN SLIDING SCALE (NOVOLOG) 1 VIAL SQ SCH ×5 (01:40→23:23)
[2023-04-06] MEDS: GABAPENTIN 250 MG/5 ML ORAL SOLUTION, 470 ML BOTTLE GT SCH ×3 (05:10→22:07)
[2023-04-06] MEDS: MEROPENEM 1 GM in DEXTROSE 5%-WATER 100 ML IVPB SCH ×3 (05:10→23:22)
[2023-04-06 08:07] LABS: EOS % 3.6 % (0-4.5); HEMATOCRIT 28.8 % (35.4-49); LYMPH % 10.2 % (8-40); MCH 28.5 pg (25.7-33.7); MCHC 31.3 g/dl (32.0-35.9); MEAN CELL VOLUME 91.2 fl (80-96); MEAN PLT VOLUME 7.7 fl (7.5-11.1); MONO % 11.2 % (3.8-10.2); PLATELET COUNT 456 10^3/uL (134-434); RBC 3.16 M/mm3 (4.00-5.60); WHITE BLOOD COUNT 10.2 K/mm3 (4.0-10.0)
[2023-04-06 08:16] LABS: POTASSIUM 3.9 mmol/L (3.5-5.1)
[2023-04-06 08:21] LABS: CALCIUM 7.9 mg/dL (8.5-10.1)
[2023-04-06 08:22] LABS: BLOOD UREA NITROGEN 21.5 mg/dL (7-18)
[2023-04-06 08:25] LABS: CREATININE 0.6 mg/dL (0.55-1.3)
[2023-04-06 08:26] LABS: TOT PROT 5.4 g/dl (6.4-8.2)
[2023-04-06 08:29] LABS: BILIRUBIN,TOTAL 0.4 mg/dL (0.2-1)
[2023-04-06] MEDS: POLYETHYLENE GLYCOL (HEALTHYLAX) 3350 17 GM PACKET GT SCH (09:44)
[2023-04-06] MEDS: FLUTICASONE PROP 0.05% 16 GM NASAL SPRAY NS SCH ×2 (09:45→22:07)
[2023-04-06] MEDS: ASCORBIC ACID 500 MG/5 ML UNIT DOSE CUP GT SCH ×2 (09:45→22:08)
[2023-04-06] MEDS: ALBUTEROL SO4 0.083% IH SOL 2.5 MG/3 ML VIAL.NEB. NEB PRN ×3 (11:34→20:54)
[2023-04-06] MEDS: COLLAGENASE CLOSTRIDIUM HIST. 30 GRAMS TUBE TP SCH (12:20)
[2023-04-06] MEDS: VENLAFAXINE HCL 37.5 MG TABLET NGT SCH ×2 (12:20→22:07)
[2023-04-06] MEDS: OXYBUTYNIN CHLORIDE 5 MG TABLET NGT SCH ×2 (12:21→22:07)
[2023-04-06] MEDS: MELATONIN 1 MG TABLET GT SCH (22:07)
[2023-04-06] MEDS: ATORVASTATIN CA 10 MG TABLET (FP) GT SCH (22:07)
[2023-04-06] MEDS: SENNOSIDES 8.8 MG/5 ML SYRUP GT SCH (22:08)
[2023-04-06] MEDS: DEXTROSE 5%-0.45% SALINE 1,000 ML IV SCH (23:21)
[2023-04-07] MEDS: MEROPENEM 1 GM in DEXTROSE 5%-WATER 100 ML IVPB SCH ×3 (06:18→22:37)
[2023-04-07] MEDS: INSULIN SLIDING SCALE (NOVOLOG) 1 VIAL SQ SCH ×3 (06:18→18:27)
[2023-04-07] MEDS: GABAPENTIN 250 MG/5 ML ORAL SOLUTION, 470 ML BOTTLE GT SCH ×3 (06:18→22:38)
[2023-04-07] MEDS: ALBUTEROL SO4 0.083% IH SOL 2.5 MG/3 ML VIAL.NEB. NEB PRN ×4 (07:55→20:45)
[2023-04-07] MEDS: ACETYLCYSTEINE 20% 200MG/ML 4 ML VIAL *FOR ORAL / INH USE ONLY NEB SCH ×4 (07:55→20:45)
[2023-04-07] MEDS: OXYBUTYNIN CHLORIDE 5 MG TABLET NGT SCH ×2 (10:29→22:39)
[2023-04-07] MEDS: FLUTICASONE PROP 0.05% 16 GM NASAL SPRAY NS SCH ×2 (10:29→22:52)
[2023-04-07] MEDS: VENLAFAXINE HCL 37.5 MG TABLET NGT SCH ×2 (10:29→22:44)
[2023-04-07] MEDS: ASCORBIC ACID 500 MG/5 ML UNIT DOSE CUP GT SCH ×2 (10:29→22:39)
[2023-04-07] MEDS: POLYETHYLENE GLYCOL (HEALTHYLAX) 3350 17 GM PACKET GT SCH (10:29)
[2023-04-07] MEDS: COLLAGENASE CLOSTRIDIUM HIST. 30 GRAMS TUBE TP SCH (10:29)
[2023-04-07] MEDS ORDERED: ATORVASTATIN CA 10 MG TABLET (FP) GT SCH (22:00)
[2023-04-07] MEDS: DEXTROSE 5%-0.45% SALINE 1,000 ML IV SCH (22:36)
[2023-04-07] MEDS: SENNOSIDES 8.8 MG/5 ML SYRUP GT SCH (22:37)
[2023-04-07] MEDS: MELATONIN 1 MG TABLET GT SCH (22:39)
[2023-04-08] MEDS: MEROPENEM 1 GM in DEXTROSE 5%-WATER 100 ML IVPB SCH ×3 (05:50→21:27)
[2023-04-08] MEDS: GABAPENTIN 250 MG/5 ML ORAL SOLUTION, 470 ML BOTTLE GT SCH ×3 (05:51→21:29)
[2023-04-08] MEDS: INSULIN SLIDING SCALE (NOVOLOG) 1 VIAL SQ SCH ×4 (05:52→17:07)
[2023-04-08] MEDS: ACETYLCYSTEINE 20% 200MG/ML 4 ML VIAL *FOR ORAL / INH USE ONLY NEB SCH ×4 (08:21→20:05)
[2023-04-08] MEDS: ALBUTEROL SO4 0.083% IH SOL 2.5 MG/3 ML VIAL.NEB. NEB PRN ×4 (08:21→20:05)
[2023-04-08] MEDS ORDERED: ACETAMINOPHEN 650 MG SUPP.RECT RC PRN (08:39)
[2023-04-08] MEDS ORDERED: SODIUM CHLORIDE 1,000 ML IV STA (08:41)
[2023-04-08] MEDS ORDERED: MULTIVITAMINS (DAILY MVI) TABLET (FP) NR SCH (10:00)
[2023-04-08] MEDS: OXYBUTYNIN CHLORIDE 5 MG TABLET NGT SCH ×2 (10:03→21:24)
[2023-04-08] MEDS: ASCORBIC ACID 500 MG/5 ML UNIT DOSE CUP GT SCH ×2 (10:04→21:30)
[2023-04-08] MEDS: MULTIVIT-MINERALS ORAL LIQUID GT SCH (10:05)
[2023-04-08] MEDS: COLLAGENASE CLOSTRIDIUM HIST. 30 GRAMS TUBE TP SCH (10:05)
[2023-04-08] MEDS: VENLAFAXINE HCL 37.5 MG TABLET NGT SCH ×2 (10:05→21:24)
[2023-04-08] MEDS: POLYETHYLENE GLYCOL (HEALTHYLAX) 3350 17 GM PACKET GT SCH (10:06)
[2023-04-08] MEDS: FLUTICASONE PROP 0.05% 16 GM NASAL SPRAY NS SCH ×2 (10:06→21:25)
[2023-04-08 12:34] LABS: BASO % 0.9 % (0-2.0); EOS % 2.6 % (0-4.5); HEMATOCRIT 27.9 % (35.4-49); HEMOGLOBIN 8.7 GM/dL (11.7-16.9); LYMPH % 10.2 % (8-40); MCH 27.9 pg (25.7-33.7); MCHC 31.2 g/dl (32.0-35.9); MEAN CELL VOLUME 89.6 fl (80-96); MEAN PLT VOLUME 7.3 fl (7.5-11.1); MONO % 11.8 % (3.8-10.2); NEUT % 74.5 % (42.8-82.8); PLATELET COUNT 496 10^3/uL (134-434); RBC 3.11 M/mm3 (4.00-5.60); RDW 19.4 % (11.9-15.9); WHITE BLOOD COUNT 11.8 K/mm3 (4.0-10.0)
[2023-04-08 12:38] LABS: EPI CELLS 2 /uL (0-25.1); HYALINE CASTS 1 /uL (0-3.1); URINE APPEARANCE CLOUDY; URINE BACTERIA 38 /uL (0-1359); URINE BILIRUBIN NEGATIVE (NEGATIVE); URINE COLOR YELLOW; URINE GLUCOSE (UA) NEGATIVE (NEGATIVE); URINE KETONE NEGATIVE (NEGATIVE); URINE LEUK ESTERASE 3+ (NEGATIVE); URINE NITRITE NEGATIVE (NEGATIVE); URINE PROTEIN 1+ (NEGATIVE); URINE RBC 10 /uL (0-23.9); URINE UROBILINOGEN 0.2 mg/dL (0.2-1.0); URINE WBC 1178 /uL (0-25.8)
[2023-04-08 12:51] LABS: POTASSIUM 4.1 mmol/L (3.5-5.1)
[2023-04-08 12:56] LABS: CALCIUM 7.7 mg/dL (8.5-10.1)
[2023-04-08 13:02] LABS: BILIRUBIN,TOTAL 0.2 mg/dL (0.2-1); CREATININE 0.5 mg/dL (0.55-1.3); TOT PROT 5.4 g/dl (6.4-8.2)
[2023-04-08 13:50] LABS: ARTERIAL BLD GAS O2 SATURATION 86.2 % (95-98); ARTERIAL BLOOD GAS BASE EXCESS 0.9 mmol/L (-2-2); ARTERIAL BLOOD GAS PO2 66.1 mmHg (80-100)
[2023-04-08 13:52] LABS: ALLENS TEST POSITIVE
[2023-04-08 13:56] LABS: ARTERIAL BLOOD GAS pH 7.169 (7.350-7.450)
[2023-04-08] MEDS ORDERED: SODIUM CHLORIDE 500 ML IV STA ×2 (14:05→16:25)
[2023-04-08 14:41] LABS: URINE CRYSTALS PRESENT /hpf; YEAST PRESENT (NEGATIVE)
[2023-04-08] MEDS: DAPTOMYCIN 350 MG in SODIUM CHLORIDE 50 ML IVPB SCH (15:01)
[2023-04-08 17:12] LABS: ARTERIAL BLD GAS O2 SATURATION 96.1 % (95-98); ARTERIAL BLOOD GAS BASE EXCESS 4.2 mmol/L (-2-2); ARTERIAL BLOOD GAS PO2 83.8 mmHg (80-100); ARTERIAL BLOOD GAS pH 7.396 (7.350-7.450)
[2023-04-08 17:14] LABS: ALLENS TEST POSITIVE; VENT MODE A/C; VENT RATE 14
[2023-04-08] MEDS ORDERED: SODIUM CHLORIDE 1,000 ML IV SCH (17:45)
[2023-04-08 20:57] LABS: ARTERIAL BLOOD GAS BASE EXCESS 1.3 mmol/L (-2-2); ARTERIAL BLOOD GAS pH 7.419 (7.350-7.450); VENT MODE A/C; VENT RATE 16
[2023-04-08] MEDS: MELATONIN 1 MG TABLET GT SCH (21:26)
[2023-04-08] MEDS: SENNOSIDES 8.8 MG/5 ML SYRUP GT SCH (21:29)
[2023-04-08] MEDS: ALBUMIN HUMAN 25% 100 ML VIAL IV SCH (23:24)
[2023-04-09] MEDS: INSULIN SLIDING SCALE (NOVOLOG) 1 VIAL SQ SCH ×4 (00:56→17:06)
[2023-04-09] MEDS: MEROPENEM 1 GM in DEXTROSE 5%-WATER 100 ML IVPB SCH ×3 (06:40→22:37)
[2023-04-09 07:10] LABS: ARTERIAL BLD GAS O2 SATURATION 95.7 % (95-98); ARTERIAL BLOOD GAS BASE EXCESS -0.2 mmol/L (-2-2); ARTERIAL BLOOD GAS PO2 81.1 mmHg (80-100); ARTERIAL BLOOD GAS pH 7.379 (7.350-7.450)
[2023-04-09 07:17] LABS: VENT MODE V-A/C; VENT RATE 16
[2023-04-09] MEDS: GABAPENTIN 250 MG/5 ML ORAL SOLUTION, 470 ML BOTTLE GT SCH ×3 (07:29→21:49)
[2023-04-09] MEDS: ALBUMIN HUMAN 25% 100 ML VIAL IV SCH ×3 (07:33→23:20)
[2023-04-09] MEDS: ALBUTEROL SO4 0.083% IH SOL 2.5 MG/3 ML VIAL.NEB. NEB PRN ×3 (07:45→21:05)
[2023-04-09] MEDS: ACETYLCYSTEINE 20% 200MG/ML 4 ML VIAL *FOR ORAL / INH USE ONLY NEB SCH ×3 (07:45→21:05)
[2023-04-09 09:25] LABS: BASO % 0.7 % (0-2.0); EOS % 1.2 % (0-4.5); HEMOGLOBIN 7.4 GM/dL (11.7-16.9); MCH 27.5 pg (25.7-33.7); MCHC 30.8 g/dl (32.0-35.9); MEAN CELL VOLUME 89.6 fl (80-96); MEAN PLT VOLUME 7.4 fl (7.5-11.1); MONO % 8.7 % (3.8-10.2); NEUT % 82.4 % (42.8-82.8); PLATELET COUNT 444 10^3/uL (134-434); RBC 2.68 M/mm3 (4.00-5.60); RDW 19.2 % (11.9-15.9); WHITE BLOOD COUNT 14.4 K/mm3 (4.0-10.0)
[2023-04-09] MEDS: VENLAFAXINE HCL 37.5 MG TABLET NGT SCH ×2 (09:37→21:48)
[2023-04-09] MEDS: ASCORBIC ACID 500 MG/5 ML UNIT DOSE CUP GT SCH ×2 (09:37→21:49)
[2023-04-09] MEDS: OXYBUTYNIN CHLORIDE 5 MG TABLET NGT SCH ×2 (09:37→21:49)
[2023-04-09] MEDS: FLUTICASONE PROP 0.05% 16 GM NASAL SPRAY NS SCH ×2 (09:44→21:50)
[2023-04-09] MEDS: POLYETHYLENE GLYCOL (HEALTHYLAX) 3350 17 GM PACKET GT SCH (09:49)
[2023-04-09 09:55] LABS: CALCIUM 7.2 mg/dL (8.5-10.1)
[2023-04-09 09:56] LABS: BLOOD UREA NITROGEN 21.5 mg/dL (7-18)
[2023-04-09 10:00] LABS: TOT PROT 5.2 g/dl (6.4-8.2)
[2023-04-09 10:01] LABS: BILIRUBIN,TOTAL 0.3 mg/dL (0.2-1); CREATININE 0.6 mg/dL (0.55-1.3)
[2023-04-09 10:16] LABS: ALBUMIN 1.3 g/dl (3.4-5.0)
[2023-04-09] MEDS: MULTIVIT-MINERALS ORAL LIQUID GT SCH (10:57)
[2023-04-09] MEDS: COLLAGENASE CLOSTRIDIUM HIST. 30 GRAMS TUBE TP SCH (12:19)
[2023-04-09] MEDS ORDERED: MEROPENEM 1 GM VIAL (RESTRICTED TO ID) IVPB ONE (13:13)
[2023-04-09] MEDS: ACETAMINOPHEN 325 MG TABLET (FP) PO PRN (15:11)
[2023-04-09] MEDS: DAPTOMYCIN 350 MG in SODIUM CHLORIDE 50 ML IVPB SCH (15:12)
[2023-04-09] MEDS: MELATONIN 1 MG TABLET GT SCH (21:49)
[2023-04-09] MEDS: SENNOSIDES 8.8 MG/5 ML SYRUP GT SCH (21:49)
[2023-04-10] MEDS: INSULIN SLIDING SCALE (NOVOLOG) 1 VIAL SQ SCH ×4 (00:15→17:47)
[2023-04-10] MEDS: MEROPENEM 1 GM in DEXTROSE 5%-WATER 100 ML IVPB SCH ×3 (05:18→21:25)
[2023-04-10] MEDS: GABAPENTIN 250 MG/5 ML ORAL SOLUTION, 470 ML BOTTLE GT SCH ×3 (05:18→21:25)
[2023-04-10] MEDS: ALBUMIN HUMAN 25% 100 ML VIAL IV SCH ×3 (06:01→20:52)
[2023-04-10 06:36] LABS: ARTERIAL BLD GAS O2 SATURATION 96.4 % (95-98); ARTERIAL BLOOD GAS BASE EXCESS -0.1 mmol/L (-2-2); ARTERIAL BLOOD GAS PO2 89.5 mmHg (80-100); ARTERIAL BLOOD GAS pH 7.352 (7.350-7.450)
[2023-04-10 06:39] LABS: ALLENS TEST POSITIVE
[2023-04-10 06:40] LABS: VENT MODE A/C; VENT RATE 16
[2023-04-10] MEDS: ALBUTEROL SO4 0.083% IH SOL 2.5 MG/3 ML VIAL.NEB. NEB PRN ×3 (07:03→20:45)
[2023-04-10] MEDS: ACETYLCYSTEINE 20% 200MG/ML 4 ML VIAL *FOR ORAL / INH USE ONLY NEB SCH ×4 (07:03→20:45)
[2023-04-10] MEDS: FLUTICASONE PROP 0.05% 16 GM NASAL SPRAY NS SCH ×2 (10:27→22:08)
[2023-04-10] MEDS: COLLAGENASE CLOSTRIDIUM HIST. 30 GRAMS TUBE TP SCH (10:27)
[2023-04-10] MEDS: ASCORBIC ACID 500 MG/5 ML UNIT DOSE CUP GT SCH ×2 (10:27→22:08)
[2023-04-10] MEDS: OXYBUTYNIN CHLORIDE 5 MG TABLET NGT SCH ×2 (10:27→21:25)
[2023-04-10] MEDS: VENLAFAXINE HCL 37.5 MG TABLET NGT SCH ×2 (10:28→21:25)
[2023-04-10] MEDS: MULTIVIT-MINERALS ORAL LIQUID GT SCH (10:28)
[2023-04-10] MEDS: POLYETHYLENE GLYCOL (HEALTHYLAX) 3350 17 GM PACKET GT SCH (10:29)
[2023-04-10 11:09] LABS: BASO % 0.8 % (0-2.0); EOS % 2.6 % (0-4.5); LYMPH % 7.1 % (8-40); MCH 29.3 pg (25.7-33.7); MCHC 33.4 g/dl (32.0-35.9); MEAN CELL VOLUME 87.7 fl (80-96); MEAN PLT VOLUME 7.5 fl (7.5-11.1); MONO % 7.9 % (3.8-10.2); NEUT % 81.6 % (42.8-82.8); PLATELET COUNT 346 10^3/uL (134-434); RBC 3.42 M/mm3 (4.00-5.60); RDW 16.7 % (11.9-15.9); WHITE BLOOD COUNT 11.7 K/mm3 (4.0-10.0)
[2023-04-10 11:36] LABS: POTASSIUM 4.5 mmol/L (3.5-5.1)
[2023-04-10 11:39] LABS: CALCIUM 7.8 mg/dL (8.5-10.1)
[2023-04-10 11:42] LABS: CREATININE 0.6 mg/dL (0.55-1.3)
[2023-04-10 11:44] LABS: BILIRUBIN,TOTAL 0.7 mg/dL (0.2-1); TOT PROT 5.8 g/dl (6.4-8.2)
[2023-04-10 12:02] LABS: ALBUMIN 2.4 g/dl (3.4-5.0)
[2023-04-10] MEDS: DAPTOMYCIN 350 MG in SODIUM CHLORIDE 50 ML IVPB SCH (14:17)
[2023-04-10] MEDS: ACETAMINOPHEN 325 MG TABLET (FP) PO PRN (19:54)
[2023-04-10] MEDS: MELATONIN 1 MG TABLET GT SCH (21:24)
[2023-04-10] MEDS: SENNOSIDES 8.8 MG/5 ML SYRUP GT SCH (21:32)
[2023-04-11] MEDS: INSULIN SLIDING SCALE (NOVOLOG) 1 VIAL SQ SCH ×5 (00:42→23:36)
[2023-04-11] MEDS: ALBUMIN HUMAN 25% 100 ML VIAL IV SCH ×2 (04:58→12:27)
[2023-04-11] MEDS: GABAPENTIN 250 MG/5 ML ORAL SOLUTION, 470 ML BOTTLE GT SCH ×3 (05:16→22:41)
[2023-04-11] MEDS: MEROPENEM 1 GM in DEXTROSE 5%-WATER 100 ML IVPB SCH ×3 (05:42→22:37)
[2023-04-11] MEDS: ACETYLCYSTEINE 20% 200MG/ML 4 ML VIAL *FOR ORAL / INH USE ONLY NEB SCH ×4 (07:40→20:20)
[2023-04-11] MEDS: MULTIVIT-MINERALS ORAL LIQUID GT SCH (10:08)
[2023-04-11] MEDS: ACETAMINOPHEN 325 MG TABLET (FP) PO PRN ×2 (10:09→22:38)
[2023-04-11] MEDS: OXYBUTYNIN CHLORIDE 5 MG TABLET NGT SCH ×2 (10:10→22:41)
[2023-04-11] MEDS: VENLAFAXINE HCL 37.5 MG TABLET NGT SCH ×2 (10:10→22:41)
[2023-04-11] MEDS: POLYETHYLENE GLYCOL (HEALTHYLAX) 3350 17 GM PACKET GT SCH (10:12)
[2023-04-11] MEDS: FLUTICASONE PROP 0.05% 16 GM NASAL SPRAY NS SCH ×2 (10:12→22:46)
[2023-04-11] MEDS: COLLAGENASE CLOSTRIDIUM HIST. 30 GRAMS TUBE TP SCH (10:13)
[2023-04-11] MEDS: ASCORBIC ACID 500 MG/5 ML UNIT DOSE CUP GT SCH ×2 (10:13→22:40)
[2023-04-11] MEDS: ALBUTEROL SO4 0.083% IH SOL 2.5 MG/3 ML VIAL.NEB. NEB SCH ×3 (11:10→20:20)
[2023-04-11 12:10] LABS: BASO % 0.9 % (0-2.0); EOS % 2.7 % (0-4.5); HEMATOCRIT 28.6 % (35.4-49); HEMOGLOBIN 9.7 GM/dL (11.7-16.9); LYMPH % 7.1 % (8-40); MCH 29.5 pg (25.7-33.7); MCHC 33.8 g/dl (32.0-35.9); MEAN CELL VOLUME 87.3 fl (80-96); MEAN PLT VOLUME 7.4 fl (7.5-11.1); MONO % 8.8 % (3.8-10.2); NEUT % 80.5 % (42.8-82.8); PLATELET COUNT 343 10^3/uL (134-434); RBC 3.28 M/mm3 (4.00-5.60); RDW 17.2 % (11.9-15.9); WHITE BLOOD COUNT 12.1 K/mm3 (4.0-10.0)
[2023-04-11 12:44] LABS: POTASSIUM 4.7 mmol/L (3.5-5.1)
[2023-04-11 12:51] LABS: ALBUMIN 2.7 g/dl (3.4-5.0); BLOOD UREA NITROGEN 24.5 mg/dL (7-18); CALCIUM 8.2 mg/dL (8.5-10.1)
[2023-04-11 12:54] LABS: CREATININE 0.6 mg/dL (0.55-1.3)
[2023-04-11 12:56] LABS: BILIRUBIN,TOTAL 0.7 mg/dL (0.2-1); TOT PROT 6.1 g/dl (6.4-8.2)
[2023-04-11] MEDS: DAPTOMYCIN 350 MG in SODIUM CHLORIDE 50 ML IVPB SCH (14:28)
[2023-04-11] MEDS: ENOXAPARIN NA (PORCINE) 40 MG/0.4 ML DISP.SYRIN SQ SCH (17:09)
[2023-04-11] MEDS: MELATONIN 1 MG TABLET GT SCH (22:40)
[2023-04-11] MEDS: SENNOSIDES 8.8 MG/5 ML SYRUP GT SCH (22:40)
[2023-04-12] MEDS: GABAPENTIN 250 MG/5 ML ORAL SOLUTION, 470 ML BOTTLE GT SCH ×3 (06:22→22:34)
[2023-04-12] MEDS: MEROPENEM 1 GM in DEXTROSE 5%-WATER 100 ML IVPB SCH (06:23)
[2023-04-12] MEDS: INSULIN SLIDING SCALE (NOVOLOG) 1 VIAL SQ SCH ×3 (06:24→17:17)
[2023-04-12] MEDS: ACETYLCYSTEINE 20% 200MG/ML 4 ML VIAL *FOR ORAL / INH USE ONLY NEB SCH ×4 (07:50→20:30)
[2023-04-12] MEDS: ALBUTEROL SO4 0.083% IH SOL 2.5 MG/3 ML VIAL.NEB. NEB SCH ×4 (07:50→20:35)
[2023-04-12 09:36] LABS: BASO % 1.2 % (0-2.0); EOS % 3.2 % (0-4.5); HEMATOCRIT 31.2 % (35.4-49); HEMOGLOBIN 10.5 GM/dL (11.7-16.9); LYMPH % 10.4 % (8-40); MCH 29.5 pg (25.7-33.7); MCHC 33.6 g/dl (32.0-35.9); MEAN CELL VOLUME 87.9 fl (80-96); MEAN PLT VOLUME 7.5 fl (7.5-11.1); MONO % 9.7 % (3.8-10.2); NEUT % 75.5 % (42.8-82.8); PLATELET COUNT 343 10^3/uL (134-434); RBC 3.55 M/mm3 (4.00-5.60); RDW 17.7 % (11.9-15.9); WHITE BLOOD COUNT 10.6 K/mm3 (4.0-10.0)
[2023-04-12 09:48] LABS: POTASSIUM 4.8 mmol/L (3.5-5.1)
[2023-04-12] MEDS: MULTIVIT-MINERALS ORAL LIQUID GT SCH (09:52)
[2023-04-12] MEDS: ASCORBIC ACID 500 MG/5 ML UNIT DOSE CUP GT SCH ×2 (09:52→22:33)
[2023-04-12] MEDS: OXYBUTYNIN CHLORIDE 5 MG TABLET NGT SCH ×2 (09:52→22:34)
[2023-04-12] MEDS: ENOXAPARIN NA (PORCINE) 40 MG/0.4 ML DISP.SYRIN SQ SCH (09:52)
[2023-04-12] MEDS: VENLAFAXINE HCL 37.5 MG TABLET NGT SCH ×2 (09:52→22:34)
[2023-04-12 09:56] LABS: BLOOD UREA NITROGEN 26.2 mg/dL (7-18); CALCIUM 8.2 mg/dL (8.5-10.1)
[2023-04-12] MEDS: FLUTICASONE PROP 0.05% 16 GM NASAL SPRAY NS SCH ×2 (09:56→22:35)
[2023-04-12 09:57] LABS: ALBUMIN 2.4 g/dl (3.4-5.0)
[2023-04-12 09:59] LABS: CREATININE 0.6 mg/dL (0.55-1.3)
[2023-04-12] MEDS: POLYETHYLENE GLYCOL (HEALTHYLAX) 3350 17 GM PACKET GT SCH (09:59)
[2023-04-12 10:01] LABS: BILIRUBIN,TOTAL 0.8 mg/dL (0.2-1)
[2023-04-12] MEDS: CEFTRIAXONE 1 GM in DEXTROSE 5%-WATER - 50 ML IVPB SCH (13:30)
[2023-04-12] MEDS: DAPTOMYCIN 350 MG in SODIUM CHLORIDE 50 ML IVPB SCH (17:10)
[2023-04-12] MEDS: COLLAGENASE CLOSTRIDIUM HIST. 30 GRAMS TUBE TP SCH (18:19)
[2023-04-12] MEDS: SENNOSIDES 8.8 MG/5 ML SYRUP GT SCH (22:33)
[2023-04-12] MEDS: MELATONIN 1 MG TABLET GT SCH (22:33)
[2023-04-13] MEDS: GABAPENTIN 250 MG/5 ML ORAL SOLUTION, 470 ML BOTTLE GT SCH ×3 (06:17→22:37)
[2023-04-13] MEDS: INSULIN SLIDING SCALE (NOVOLOG) 1 VIAL SQ SCH ×2 (06:18→16:43)
[2023-04-13] MEDS: ALBUTEROL SO4 0.083% IH SOL 2.5 MG/3 ML VIAL.NEB. NEB SCH ×4 (08:30→19:16)
[2023-04-13] MEDS: ACETYLCYSTEINE 20% 200MG/ML 4 ML VIAL *FOR ORAL / INH USE ONLY NEB SCH ×4 (08:30→19:16)
[2023-04-13 08:35] LABS: POTASSIUM 4.7 mmol/L (3.5-5.1)
[2023-04-13 08:41] LABS: BASO % 1.1 % (0-2.0); EOS % 2.8 % (0-4.5); HEMATOCRIT 30.8 % (35.4-49); HEMOGLOBIN 10.1 GM/dL (11.7-16.9); LYMPH % 9.8 % (8-40); MCH 29.5 pg (25.7-33.7); MCHC 32.8 g/dl (32.0-35.9); MEAN PLT VOLUME 7.6 fl (7.5-11.1); MONO % 11.2 % (3.8-10.2); NEUT % 75.1 % (42.8-82.8); PLATELET COUNT 357 10^3/uL (134-434); RBC 3.43 M/mm3 (4.00-5.60); RDW 17.6 % (11.9-15.9); WHITE BLOOD COUNT 10.7 K/mm3 (4.0-10.0)
[2023-04-13 08:47] LABS: ALBUMIN 2.2 g/dl (3.4-5.0); CALCIUM 8.3 mg/dL (8.5-10.1)
[2023-04-13 08:48] LABS: MAGNESIUM 2.2 mg/dL (1.8-2.4)
[2023-04-13 08:50] LABS: BILIRUBIN,TOTAL 0.6 mg/dL (0.2-1); CREATININE 0.6 mg/dL (0.55-1.3); TOT PROT 6.2 g/dl (6.4-8.2)
[2023-04-13] MEDS: CEFTRIAXONE 1 GM in DEXTROSE 5%-WATER - 50 ML IVPB SCH (11:29)
[2023-04-13] MEDS: ENOXAPARIN NA (PORCINE) 40 MG/0.4 ML DISP.SYRIN SQ SCH (11:29)
[2023-04-13] MEDS: ASCORBIC ACID 500 MG/5 ML UNIT DOSE CUP GT SCH ×2 (11:29→22:37)
[2023-04-13] MEDS: MULTIVIT-MINERALS ORAL LIQUID GT SCH (11:30)
[2023-04-13] MEDS: VENLAFAXINE HCL 37.5 MG TABLET NGT SCH ×2 (11:31→22:33)
[2023-04-13] MEDS: COLLAGENASE CLOSTRIDIUM HIST. 30 GRAMS TUBE TP SCH (11:31)
[2023-04-13] MEDS: FLUTICASONE PROP 0.05% 16 GM NASAL SPRAY NS SCH ×2 (11:32→22:39)
[2023-04-13] MEDS: OXYBUTYNIN CHLORIDE 5 MG TABLET NGT SCH ×2 (11:34→22:37)
[2023-04-13] MEDS: POLYETHYLENE GLYCOL (HEALTHYLAX) 3350 17 GM PACKET GT SCH (11:35)
[2023-04-13] MEDS: DAPTOMYCIN 350 MG in SODIUM CHLORIDE 50 ML IVPB SCH (14:21)
[2023-04-13] MEDS: ACETAMINOPHEN 325 MG TABLET (FP) PO PRN (22:33)
[2023-04-13] MEDS: MELATONIN 1 MG TABLET GT SCH (22:36)
[2023-04-13] MEDS: SENNOSIDES 8.8 MG/5 ML SYRUP GT SCH (22:36)
[2023-04-14] MEDS: GABAPENTIN 250 MG/5 ML ORAL SOLUTION, 470 ML BOTTLE GT SCH ×3 (06:16→22:41)
[2023-04-14] MEDS: INSULIN SLIDING SCALE (NOVOLOG) 1 VIAL SQ SCH ×2 (06:44→17:38)
[2023-04-14] MEDS: ACETYLCYSTEINE 20% 200MG/ML 4 ML VIAL *FOR ORAL / INH USE ONLY NEB SCH ×4 (10:03→20:35)
[2023-04-14] MEDS: ALBUTEROL SO4 0.083% IH SOL 2.5 MG/3 ML VIAL.NEB. NEB SCH ×4 (10:04→20:31)
[2023-04-14] MEDS: OXYBUTYNIN CHLORIDE 5 MG TABLET NGT SCH ×2 (11:47→22:42)
[2023-04-14] MEDS: ASCORBIC ACID 500 MG/5 ML UNIT DOSE CUP GT SCH ×2 (11:47→22:41)
[2023-04-14] MEDS: ENOXAPARIN NA (PORCINE) 40 MG/0.4 ML DISP.SYRIN SQ SCH (11:47)
[2023-04-14] MEDS: CEFTRIAXONE 1 GM in DEXTROSE 5%-WATER - 50 ML IVPB SCH (11:52)
[2023-04-14] MEDS: POLYETHYLENE GLYCOL (HEALTHYLAX) 3350 17 GM PACKET GT SCH (11:56)
[2023-04-14] MEDS: COLLAGENASE CLOSTRIDIUM HIST. 30 GRAMS TUBE TP SCH (11:57)
[2023-04-14] MEDS: FLUTICASONE PROP 0.05% 16 GM NASAL SPRAY NS SCH ×2 (11:58→22:43)
[2023-04-14] MEDS: VENLAFAXINE HCL 37.5 MG TABLET NGT SCH ×2 (11:59→22:42)
[2023-04-14] MEDS: MULTIVIT-MINERALS ORAL LIQUID GT SCH (11:59)
[2023-04-14 12:49] LABS: BASO % 0.5 % (0-2.0); EOS % 1.3 % (0-4.5); HEMATOCRIT 38.5 % (35.4-49); HEMOGLOBIN 12.1 GM/dL (11.7-16.9); LYMPH % 5.5 % (8-40); MCHC 31.5 g/dl (32.0-35.9); MEAN CELL VOLUME 88.8 fl (80-96); MEAN PLT VOLUME 7.3 fl (7.5-11.1); MONO % 6.9 % (3.8-10.2); NEUT % 85.8 % (42.8-82.8); PLATELET COUNT 384 10^3/uL (134-434); RBC 4.34 M/mm3 (4.00-5.60); RDW 17.8 % (11.9-15.9); WHITE BLOOD COUNT 16.5 K/mm3 (4.0-10.0)
[2023-04-14 13:23] LABS: POTASSIUM 5.1 mmol/L (3.5-5.1)
[2023-04-14 13:25] LABS: BLOOD UREA NITROGEN 26.7 mg/dL (7-18); CALCIUM 8.6 mg/dL (8.5-10.1)
[2023-04-14 13:26] LABS: ALBUMIN 2.3 g/dl (3.4-5.0)
[2023-04-14 13:29] LABS: CREATININE 0.6 mg/dL (0.55-1.3)
[2023-04-14 13:31] LABS: BILIRUBIN,TOTAL 0.4 mg/dL (0.2-1)
[2023-04-14] MEDS: DAPTOMYCIN 350 MG in SODIUM CHLORIDE 50 ML IVPB SCH (14:37)
[2023-04-14] MEDS: ACETAMINOPHEN 325 MG TABLET (FP) PO PRN (17:51)
[2023-04-14] MEDS: SENNOSIDES 8.8 MG/5 ML SYRUP GT SCH (22:41)
[2023-04-14] MEDS: MELATONIN 1 MG TABLET GT SCH (22:42)
[2023-04-15] MEDS: GABAPENTIN 250 MG/5 ML ORAL SOLUTION, 470 ML BOTTLE GT SCH ×3 (05:43→22:18)
[2023-04-15] MEDS: INSULIN SLIDING SCALE (NOVOLOG) 1 VIAL SQ SCH ×2 (06:01→17:35)
[2023-04-15] MEDS: ACETYLCYSTEINE 20% 200MG/ML 4 ML VIAL *FOR ORAL / INH USE ONLY NEB SCH ×4 (08:10→20:45)
[2023-04-15] MEDS: ALBUTEROL SO4 0.083% IH SOL 2.5 MG/3 ML VIAL.NEB. NEB SCH ×4 (08:10→20:45)
[2023-04-15] MEDS: VENLAFAXINE HCL 37.5 MG TABLET NGT SCH ×2 (10:54→22:10)
[2023-04-15] MEDS: ENOXAPARIN NA (PORCINE) 40 MG/0.4 ML DISP.SYRIN SQ SCH (10:54)
[2023-04-15] MEDS: POLYETHYLENE GLYCOL (HEALTHYLAX) 3350 17 GM PACKET GT SCH (10:54)
[2023-04-15] MEDS: CEFTRIAXONE 1 GM in DEXTROSE 5%-WATER - 50 ML IVPB SCH (10:54)
[2023-04-15] MEDS: OXYBUTYNIN CHLORIDE 5 MG TABLET NGT SCH ×2 (10:54→22:09)
[2023-04-15] MEDS: MULTIVIT-MINERALS ORAL LIQUID GT SCH (10:54)
[2023-04-15] MEDS: COLLAGENASE CLOSTRIDIUM HIST. 30 GRAMS TUBE TP SCH (10:55)
[2023-04-15] MEDS: FLUTICASONE PROP 0.05% 16 GM NASAL SPRAY NS SCH ×2 (10:55→22:52)
[2023-04-15 13:06] LABS: BASO % 0.9 % (0-2.0); EOS % 2.5 % (0-4.5); HEMOGLOBIN 9.7 GM/dL (11.7-16.9); LYMPH % 7.8 % (8-40); MCH 28.4 pg (25.7-33.7); MCHC 31.4 g/dl (32.0-35.9); MEAN CELL VOLUME 90.5 fl (80-96); MEAN PLT VOLUME 7.7 fl (7.5-11.1); NEUT % 80.8 % (42.8-82.8); PLATELET COUNT 339 10^3/uL (134-434); RBC 3.43 M/mm3 (4.00-5.60); WHITE BLOOD COUNT 13.9 K/mm3 (4.0-10.0)
[2023-04-15 13:30] LABS: CALCIUM 8.3 mg/dL (8.5-10.1); POTASSIUM 4.6 mmol/L (3.5-5.1)
[2023-04-15 13:31] LABS: BLOOD UREA NITROGEN 27.2 mg/dL (7-18); MAGNESIUM 2.1 mg/dL (1.8-2.4)
[2023-04-15 13:34] LABS: CREATININE 0.5 mg/dL (0.55-1.3); PHOSPHOROUS 3.2 mg/dL (2.5-4.9)
[2023-04-15 13:35] LABS: BILIRUBIN,TOTAL 0.6 mg/dL (0.2-1); TOT PROT 6.3 g/dl (6.4-8.2)
[2023-04-15 13:37] LABS: ALBUMIN 1.9 g/dl (3.4-5.0)
[2023-04-15] MEDS: DAPTOMYCIN 350 MG in SODIUM CHLORIDE 50 ML IVPB SCH (14:29)
[2023-04-15] MEDS: ASCORBIC ACID 500 MG/5 ML UNIT DOSE CUP GT SCH ×2 (14:29→22:11)
[2023-04-15] MEDS: ACETAMINOPHEN 325 MG TABLET (FP) PO PRN (14:44)
[2023-04-15] MEDS: MELATONIN 1 MG TABLET GT SCH (22:09)
[2023-04-15] MEDS: SENNOSIDES 8.8 MG/5 ML SYRUP GT SCH (22:10)
[2023-04-16] MEDS: GABAPENTIN 250 MG/5 ML ORAL SOLUTION, 470 ML BOTTLE GT SCH ×3 (06:56→21:52)
[2023-04-16] MEDS: INSULIN SLIDING SCALE (NOVOLOG) 1 VIAL SQ SCH ×2 (07:10→17:41)
[2023-04-16] MEDS: ALBUTEROL SO4 0.083% IH SOL 2.5 MG/3 ML VIAL.NEB. NEB SCH ×4 (08:10→20:22)
[2023-04-16] MEDS: ACETYLCYSTEINE 20% 200MG/ML 4 ML VIAL *FOR ORAL / INH USE ONLY NEB SCH ×4 (08:10→20:23)
[2023-04-16 08:34] LABS: BASO % 1.2 % (0-2.0); HEMATOCRIT 29.2 % (35.4-49); HEMOGLOBIN 9.7 GM/dL (11.7-16.9); LYMPH % 8.1 % (8-40); MCH 29.1 pg (25.7-33.7); MCHC 33.1 g/dl (32.0-35.9); MEAN PLT VOLUME 7.7 fl (7.5-11.1); MONO % 9.3 % (3.8-10.2); NEUT % 78.4 % (42.8-82.8); PLATELET COUNT 349 10^3/uL (134-434); RBC 3.32 M/mm3 (4.00-5.60); RDW 17.6 % (11.9-15.9); WHITE BLOOD COUNT 10.4 K/mm3 (4.0-10.0)
[2023-04-16 09:08] LABS: POTASSIUM 4.6 mmol/L (3.5-5.1)
[2023-04-16 09:10] LABS: ALBUMIN 1.8 g/dl (3.4-5.0); BLOOD UREA NITROGEN 25.4 mg/dL (7-18); CALCIUM 8.1 mg/dL (8.5-10.1); MAGNESIUM 2.1 mg/dL (1.8-2.4)
[2023-04-16 09:13] LABS: PHOSPHOROUS 3.4 mg/dL (2.5-4.9)
[2023-04-16 09:14] LABS: BILIRUBIN,TOTAL 0.3 mg/dL (0.2-1)
[2023-04-16 09:15] LABS: TOT PROT 6.3 g/dl (6.4-8.2)
[2023-04-16 09:16] LABS: CREATININE 0.5 mg/dL (0.55-1.3)
[2023-04-16] MEDS: POLYETHYLENE GLYCOL (HEALTHYLAX) 3350 17 GM PACKET GT SCH (10:07)
[2023-04-16] MEDS: ASCORBIC ACID 500 MG/5 ML UNIT DOSE CUP GT SCH ×2 (10:07→21:53)
[2023-04-16] MEDS: OXYBUTYNIN CHLORIDE 5 MG TABLET NGT SCH ×2 (10:08→21:52)
[2023-04-16] MEDS: FLUTICASONE PROP 0.05% 16 GM NASAL SPRAY NS SCH ×2 (10:08→21:52)
[2023-04-16] MEDS: ENOXAPARIN NA (PORCINE) 40 MG/0.4 ML DISP.SYRIN SQ SCH (10:08)
[2023-04-16] MEDS: VENLAFAXINE HCL 37.5 MG TABLET NGT SCH ×2 (10:08→21:52)
[2023-04-16] MEDS: MULTIVIT-MINERALS ORAL LIQUID GT SCH (10:08)
[2023-04-16] MEDS: COLLAGENASE CLOSTRIDIUM HIST. 30 GRAMS TUBE TP SCH (10:09)
[2023-04-16] MEDS: MELATONIN 1 MG TABLET GT SCH (21:52)
[2023-04-16] MEDS: SENNOSIDES 8.8 MG/5 ML SYRUP GT SCH (21:53)
[2023-04-17] MEDS: GABAPENTIN 250 MG/5 ML ORAL SOLUTION, 470 ML BOTTLE GT SCH ×3 (06:43→22:13)
[2023-04-17] MEDS: INSULIN SLIDING SCALE (NOVOLOG) 1 VIAL SQ SCH ×2 (06:52→17:56)
[2023-04-17] MEDS: ALBUTEROL SO4 0.083% IH SOL 2.5 MG/3 ML VIAL.NEB. NEB SCH ×4 (08:45→20:41)
[2023-04-17] MEDS: ACETYLCYSTEINE 20% 200MG/ML 4 ML VIAL *FOR ORAL / INH USE ONLY NEB SCH ×4 (08:45→20:40)
[2023-04-17 09:12] LABS: BASO % 1.2 % (0-2.0); EOS % 3.8 % (0-4.5); HEMATOCRIT 30.9 % (35.4-49); HEMOGLOBIN 10.4 GM/dL (11.7-16.9); LYMPH % 9.2 % (8-40); MCH 29.2 pg (25.7-33.7); MCHC 33.5 g/dl (32.0-35.9); MEAN CELL VOLUME 87.1 fl (80-96); MEAN PLT VOLUME 7.3 fl (7.5-11.1); MONO % 8.6 % (3.8-10.2); NEUT % 77.2 % (42.8-82.8); PLATELET COUNT 463 10^3/uL (134-434); RBC 3.54 M/mm3 (4.00-5.60); RDW 17.8 % (11.9-15.9); WHITE BLOOD COUNT 10.5 K/mm3 (4.0-10.0)
[2023-04-17 09:36] LABS: POTASSIUM 4.9 mmol/L (3.5-5.1)
[2023-04-17 09:41] LABS: CALCIUM 8.9 mg/dL (8.5-10.1)
[2023-04-17 09:42] LABS: BLOOD UREA NITROGEN 25.4 mg/dL (7-18)
[2023-04-17 09:45] LABS: CREATININE 0.6 mg/dL (0.55-1.3)
[2023-04-17 09:46] LABS: BILIRUBIN,TOTAL 0.4 mg/dL (0.2-1); TOT PROT 6.9 g/dl (6.4-8.2)
[2023-04-17] MEDS: ASCORBIC ACID 500 MG/5 ML UNIT DOSE CUP GT SCH ×2 (10:12→22:13)
[2023-04-17] MEDS: POLYETHYLENE GLYCOL (HEALTHYLAX) 3350 17 GM PACKET GT SCH (10:12)
[2023-04-17] MEDS: ENOXAPARIN NA (PORCINE) 40 MG/0.4 ML DISP.SYRIN SQ SCH (10:13)
[2023-04-17] MEDS: OXYBUTYNIN CHLORIDE 5 MG TABLET NGT SCH ×2 (10:13→22:12)
[2023-04-17] MEDS: MULTIVIT-MINERALS ORAL LIQUID GT SCH (10:14)
[2023-04-17] MEDS: FLUTICASONE PROP 0.05% 16 GM NASAL SPRAY NS SCH ×2 (10:15→22:12)
[2023-04-17] MEDS: VENLAFAXINE HCL 37.5 MG TABLET NGT SCH ×2 (10:15→22:12)
[2023-04-17] MEDS: COLLAGENASE CLOSTRIDIUM HIST. 30 GRAMS TUBE TP SCH (10:16)
[2023-04-17] MEDS: VANCOMYCIN ORAL SOLUTION 125 MG/2.5 ML PO SCH (22:11)
[2023-04-17] MEDS: MELATONIN 1 MG TABLET GT SCH (22:12)
[2023-04-17] MEDS: SENNOSIDES 8.8 MG/5 ML SYRUP GT SCH (22:13)
[2023-04-18] MEDS: VANCOMYCIN ORAL SOLUTION 125 MG/2.5 ML PO SCH ×5 (00:18→23:12)
[2023-04-18] MEDS: GABAPENTIN 250 MG/5 ML ORAL SOLUTION, 470 ML BOTTLE GT SCH ×3 (05:46→22:09)
[2023-04-18] MEDS: INSULIN SLIDING SCALE (NOVOLOG) 1 VIAL SQ SCH ×2 (06:07→17:30)
[2023-04-18] MEDS: ALBUTEROL SO4 0.083% IH SOL 2.5 MG/3 ML VIAL.NEB. NEB SCH ×4 (08:35→20:45)
[2023-04-18] MEDS: ACETYLCYSTEINE 20% 200MG/ML 4 ML VIAL *FOR ORAL / INH USE ONLY NEB SCH ×4 (08:35→20:43)
[2023-04-18 10:01] LABS: BASO % 0.8 % (0-2.0); EOS % 1.2 % (0-4.5); HEMATOCRIT 31.2 % (35.4-49); HEMOGLOBIN 9.7 GM/dL (11.7-16.9); LYMPH % 7.7 % (8-40); MCHC 31.2 g/dl (32.0-35.9); MEAN CELL VOLUME 89.7 fl (80-96); MEAN PLT VOLUME 7.4 fl (7.5-11.1); MONO % 9.3 % (3.8-10.2); PLATELET COUNT 518 10^3/uL (134-434); RBC 3.47 M/mm3 (4.00-5.60); RDW 17.2 % (11.9-15.9); WHITE BLOOD COUNT 17.5 K/mm3 (4.0-10.0)
[2023-04-18 10:38] LABS: POTASSIUM 4.9 mmol/L (3.5-5.1)
[2023-04-18 10:53] LABS: ALBUMIN 1.9 g/dl (3.4-5.0); BLOOD UREA NITROGEN 28.6 mg/dL (7-18); CALCIUM 8.7 mg/dL (8.5-10.1)
[2023-04-18] MEDS: FLUTICASONE PROP 0.05% 16 GM NASAL SPRAY NS SCH ×2 (10:55→22:08)
[2023-04-18] MEDS: ASCORBIC ACID 500 MG/5 ML UNIT DOSE CUP GT SCH ×2 (10:56→22:09)
[2023-04-18] MEDS: ENOXAPARIN NA (PORCINE) 40 MG/0.4 ML DISP.SYRIN SQ SCH (10:56)
[2023-04-18] MEDS: COLLAGENASE CLOSTRIDIUM HIST. 30 GRAMS TUBE TP SCH (10:56)
[2023-04-18] MEDS: OXYBUTYNIN CHLORIDE 5 MG TABLET NGT SCH ×2 (10:56→22:09)
[2023-04-18 10:57] LABS: BILIRUBIN,TOTAL 0.7 mg/dL (0.2-1); CREATININE 0.8 mg/dL (0.55-1.3)
[2023-04-18] MEDS: VENLAFAXINE HCL 37.5 MG TABLET NGT SCH ×2 (10:57→22:10)
[2023-04-18] MEDS: MULTIVIT-MINERALS ORAL LIQUID GT SCH (10:57)
[2023-04-18] MEDS: POLYETHYLENE GLYCOL (HEALTHYLAX) 3350 17 GM PACKET GT SCH (10:58)
[2023-04-18] MEDS: SENNOSIDES 8.8 MG/5 ML SYRUP GT SCH (22:08)
[2023-04-18] MEDS: MELATONIN 1 MG TABLET GT SCH (22:10)
[2023-04-19] MEDS: VANCOMYCIN ORAL SOLUTION 125 MG/2.5 ML GT SCH ×3 (06:32→18:46)
[2023-04-19] MEDS: GABAPENTIN 250 MG/5 ML ORAL SOLUTION, 470 ML BOTTLE GT SCH ×3 (06:32→22:40)
[2023-04-19] MEDS: INSULIN SLIDING SCALE (NOVOLOG) 1 VIAL SQ SCH ×2 (06:33→16:58)
[2023-04-19] MEDS: ACETYLCYSTEINE 20% 200MG/ML 4 ML VIAL *FOR ORAL / INH USE ONLY NEB SCH ×4 (08:45→20:20)
[2023-04-19] MEDS: ALBUTEROL SO4 0.083% IH SOL 2.5 MG/3 ML VIAL.NEB. NEB SCH ×4 (08:45→20:20)
[2023-04-19 09:25] LABS: EOS % 3.5 % (0-4.5); HEMATOCRIT 29.4 % (35.4-49); HEMOGLOBIN 9.2 GM/dL (11.7-16.9); LYMPH % 7.4 % (8-40); MCHC 31.5 g/dl (32.0-35.9); MEAN CELL VOLUME 88.9 fl (80-96); MEAN PLT VOLUME 7.2 fl (7.5-11.1); MONO % 9.4 % (3.8-10.2); NEUT % 78.7 % (42.8-82.8); PLATELET COUNT 511 10^3/uL (134-434); RDW 17.6 % (11.9-15.9); WHITE BLOOD COUNT 14.2 K/mm3 (4.0-10.0)
[2023-04-19 09:55] LABS: POTASSIUM 4.6 mmol/L (3.5-5.1)
[2023-04-19 09:58] LABS: CALCIUM 8.8 mg/dL (8.5-10.1)
[2023-04-19 10:00] LABS: ALBUMIN 1.8 g/dl (3.4-5.0); BLOOD UREA NITROGEN 28.3 mg/dL (7-18)
[2023-04-19] MEDS: VENLAFAXINE HCL 37.5 MG TABLET NGT SCH ×2 (10:00→22:39)
[2023-04-19] MEDS: ASCORBIC ACID 500 MG/5 ML UNIT DOSE CUP GT SCH ×2 (10:00→22:38)
[2023-04-19] MEDS: OXYBUTYNIN CHLORIDE 5 MG TABLET NGT SCH ×2 (10:00→22:39)
[2023-04-19] MEDS: POLYETHYLENE GLYCOL (HEALTHYLAX) 3350 17 GM PACKET GT SCH ×2 (10:00→11:12)
[2023-04-19] MEDS: ENOXAPARIN NA (PORCINE) 40 MG/0.4 ML DISP.SYRIN SQ SCH (10:00)
[2023-04-19] MEDS: FLUTICASONE PROP 0.05% 16 GM NASAL SPRAY NS SCH ×2 (10:01→22:39)
[2023-04-19] MEDS: COLLAGENASE CLOSTRIDIUM HIST. 30 GRAMS TUBE TP SCH (10:01)
[2023-04-19 10:02] LABS: BILIRUBIN,TOTAL 0.4 mg/dL (0.2-1); CREATININE 0.7 mg/dL (0.55-1.3); TOT PROT 6.7 g/dl (6.4-8.2)
[2023-04-19] MEDS: MULTIVIT-MINERALS ORAL LIQUID GT SCH (10:04)
[2023-04-19] MEDS: BANATROL PLUS POWDER PACKET GT SCH ×2 (15:46→22:37)
[2023-04-19] MEDS: SENNOSIDES 8.8 MG/5 ML SYRUP GT SCH (22:38)
[2023-04-19] MEDS: MELATONIN 1 MG TABLET GT SCH (22:39)
[2023-04-19] MEDS: ACETAMINOPHEN 325 MG TABLET (FP) PO PRN (22:43)
[2023-04-20] MEDS: VANCOMYCIN ORAL SOLUTION 125 MG/2.5 ML GT SCH ×4 (00:57→17:52)
[2023-04-20] MEDS ORDERED: ONDANSETRON 4 MG/2 ML VIAL IVPUSH PRN (07:11)
[2023-04-20] MEDS: INSULIN SLIDING SCALE (NOVOLOG) 1 VIAL SQ SCH ×2 (07:21→17:16)
[2023-04-20] MEDS: ACETYLCYSTEINE 20% 200MG/ML 4 ML VIAL *FOR ORAL / INH USE ONLY NEB SCH ×4 (07:45→21:00)
[2023-04-20] MEDS: ALBUTEROL SO4 0.083% IH SOL 2.5 MG/3 ML VIAL.NEB. NEB SCH ×4 (07:45→21:00)
[2023-04-20] MEDS: BANATROL PLUS POWDER PACKET GT SCH ×3 (07:54→22:33)
[2023-04-20] MEDS: GABAPENTIN 250 MG/5 ML ORAL SOLUTION, 470 ML BOTTLE GT SCH ×3 (07:55→22:34)
[2023-04-20] MEDS: PANTOPRAZOLE SODIUM 40 MG VIAL IVPUSH SCH (10:26)
[2023-04-20] MEDS: FLUTICASONE PROP 0.05% 16 GM NASAL SPRAY NS SCH ×2 (10:28→22:34)
[2023-04-20] MEDS: COLLAGENASE CLOSTRIDIUM HIST. 30 GRAMS TUBE TP SCH (10:29)
[2023-04-20] MEDS: OXYBUTYNIN CHLORIDE 5 MG TABLET NGT SCH ×2 (10:58→22:33)
[2023-04-20] MEDS: MULTIVIT-MINERALS ORAL LIQUID GT SCH (10:58)
[2023-04-20] MEDS: POLYETHYLENE GLYCOL (HEALTHYLAX) 3350 17 GM PACKET GT SCH (10:58)
[2023-04-20] MEDS: VENLAFAXINE HCL 37.5 MG TABLET NGT SCH ×2 (10:58→23:52)
[2023-04-20] MEDS: ASCORBIC ACID 500 MG/5 ML UNIT DOSE CUP GT SCH ×2 (10:58→22:32)
[2023-04-20 10:59] LABS: BASO % 0.7 % (0-2.0); EOS % 3.1 % (0-4.5); HEMATOCRIT 31.2 % (35.4-49); HEMOGLOBIN 10.1 GM/dL (11.7-16.9); LYMPH % 6.1 % (8-40); MCH 28.4 pg (25.7-33.7); MCHC 32.5 g/dl (32.0-35.9); MEAN CELL VOLUME 87.4 fl (80-96); MEAN PLT VOLUME 7.1 fl (7.5-11.1); MONO % 8.9 % (3.8-10.2); NEUT % 81.2 % (42.8-82.8); PLATELET COUNT 592 10^3/uL (134-434); RBC 3.57 M/mm3 (4.00-5.60); RDW 17.8 % (11.9-15.9); WHITE BLOOD COUNT 13.1 K/mm3 (4.0-10.0)
[2023-04-20 11:39] LABS: BLOOD UREA NITROGEN 29.3 mg/dL (7-18); CALCIUM 9.3 mg/dL (8.5-10.1)
[2023-04-20 11:43] LABS: CREATININE 0.7 mg/dL (0.55-1.3)
[2023-04-20] MEDS: SENNOSIDES 8.8 MG/5 ML SYRUP GT SCH (22:32)
[2023-04-20] MEDS: MELATONIN 1 MG TABLET GT SCH (22:33)
[2023-04-21] MEDS: VANCOMYCIN ORAL SOLUTION 125 MG/2.5 ML GT SCH ×4 (00:11→17:56)
[2023-04-21] MEDS: ACETAMINOPHEN 325 MG TABLET (FP) PO PRN (06:24)
[2023-04-21] MEDS: BANATROL PLUS POWDER PACKET GT SCH ×3 (06:24→22:48)
[2023-04-21] MEDS: GABAPENTIN 250 MG/5 ML ORAL SOLUTION, 470 ML BOTTLE GT SCH ×3 (06:24→22:49)
[2023-04-21] MEDS: INSULIN SLIDING SCALE (NOVOLOG) 1 VIAL SQ SCH ×2 (06:27→17:05)
[2023-04-21] MEDS: ACETYLCYSTEINE 20% 200MG/ML 4 ML VIAL *FOR ORAL / INH USE ONLY NEB SCH ×4 (08:15→20:25)
[2023-04-21] MEDS: ALBUTEROL SO4 0.083% IH SOL 2.5 MG/3 ML VIAL.NEB. NEB SCH ×4 (08:15→20:25)
[2023-04-21 09:19] LABS: EOS % 6.8 % (0-4.5); HEMATOCRIT 30.3 % (35.4-49); HEMOGLOBIN 9.6 GM/dL (11.7-16.9); LYMPH % 13.6 % (8-40); MCH 28.4 pg (25.7-33.7); MCHC 31.6 g/dl (32.0-35.9); MEAN CELL VOLUME 89.7 fl (80-96); MEAN PLT VOLUME 7.2 fl (7.5-11.1); MONO % 14.3 % (3.8-10.2); NEUT % 64.3 % (42.8-82.8); PLATELET COUNT 575 10^3/uL (134-434); RBC 3.38 M/mm3 (4.00-5.60); RDW 17.4 % (11.9-15.9); WHITE BLOOD COUNT 9.5 K/mm3 (4.0-10.0)
[2023-04-21 09:50] LABS: POTASSIUM 4.7 mmol/L (3.5-5.1)
[2023-04-21 09:54] LABS: BLOOD UREA NITROGEN 27.1 mg/dL (7-18); CALCIUM 8.9 mg/dL (8.5-10.1)
[2023-04-21 09:58] LABS: CREATININE 0.8 mg/dL (0.55-1.3)
[2023-04-21] MEDS: PANTOPRAZOLE SODIUM 40 MG VIAL IVPUSH SCH (11:06)
[2023-04-21] MEDS: ASCORBIC ACID 500 MG/5 ML UNIT DOSE CUP GT SCH ×2 (11:06→22:48)
[2023-04-21] MEDS: MULTIVIT-MINERALS ORAL LIQUID GT SCH (11:06)
[2023-04-21] MEDS: OXYBUTYNIN CHLORIDE 5 MG TABLET NGT SCH ×2 (11:06→22:48)
[2023-04-21] MEDS: FLUTICASONE PROP 0.05% 16 GM NASAL SPRAY NS SCH ×2 (11:07→22:49)
[2023-04-21] MEDS: VENLAFAXINE HCL 37.5 MG TABLET NGT SCH ×2 (11:07→22:48)
[2023-04-21] MEDS: COLLAGENASE CLOSTRIDIUM HIST. 30 GRAMS TUBE TP SCH (11:07)
[2023-04-21] MEDS: POLYETHYLENE GLYCOL (HEALTHYLAX) 3350 17 GM PACKET GT SCH (11:09)
[2023-04-21] MEDS: MELATONIN 1 MG TABLET GT SCH (22:48)
[2023-04-21] MEDS: SENNOSIDES 8.8 MG/5 ML SYRUP GT SCH (22:48)
[2023-04-22] MEDS: VANCOMYCIN ORAL SOLUTION 125 MG/2.5 ML GT SCH ×4 (00:04→17:24)
[2023-04-22] MEDS: BANATROL PLUS POWDER PACKET GT SCH ×3 (06:16→22:20)
[2023-04-22] MEDS: GABAPENTIN 250 MG/5 ML ORAL SOLUTION, 470 ML BOTTLE GT SCH ×3 (06:16→22:21)
[2023-04-22] MEDS: INSULIN SLIDING SCALE (NOVOLOG) 1 VIAL SQ SCH ×2 (06:20→17:02)
[2023-04-22] MEDS: ALBUTEROL SO4 0.083% IH SOL 2.5 MG/3 ML VIAL.NEB. NEB SCH ×4 (07:40→20:41)
[2023-04-22] MEDS: ACETYLCYSTEINE 20% 200MG/ML 4 ML VIAL *FOR ORAL / INH USE ONLY NEB SCH ×4 (07:40→20:41)
[2023-04-22] MEDS: ASCORBIC ACID 500 MG/5 ML UNIT DOSE CUP GT SCH ×2 (11:11→22:22)
[2023-04-22] MEDS: OXYBUTYNIN CHLORIDE 5 MG TABLET NGT SCH ×2 (11:11→22:20)
[2023-04-22] MEDS: PANTOPRAZOLE SODIUM 40 MG VIAL IVPUSH SCH (11:11)
[2023-04-22] MEDS: MULTIVIT-MINERALS ORAL LIQUID GT SCH (11:12)
[2023-04-22] MEDS: VENLAFAXINE HCL 37.5 MG TABLET NGT SCH ×2 (11:12→22:20)
[2023-04-22] MEDS: FLUTICASONE PROP 0.05% 16 GM NASAL SPRAY NS SCH ×2 (11:14→22:21)
[2023-04-22] MEDS: COLLAGENASE CLOSTRIDIUM HIST. 30 GRAMS TUBE TP SCH (11:14)
[2023-04-22] MEDS: POLYETHYLENE GLYCOL (HEALTHYLAX) 3350 17 GM PACKET GT SCH (11:16)
[2023-04-22] MEDS: MELATONIN 1 MG TABLET GT SCH (22:21)
[2023-04-22] MEDS: SENNOSIDES 8.8 MG/5 ML SYRUP GT SCH (22:21)
[2023-04-23] MEDS: VANCOMYCIN ORAL SOLUTION 125 MG/2.5 ML GT SCH ×5 (00:26→23:59)
[2023-04-23] MEDS: BANATROL PLUS POWDER PACKET GT SCH (05:29)
[2023-04-23] MEDS: GABAPENTIN 250 MG/5 ML ORAL SOLUTION, 470 ML BOTTLE GT SCH ×3 (05:29→21:31)
[2023-04-23] MEDS: INSULIN SLIDING SCALE (NOVOLOG) 1 VIAL SQ SCH ×2 (06:04→16:54)
[2023-04-23] MEDS: ALBUTEROL SO4 0.083% IH SOL 2.5 MG/3 ML VIAL.NEB. NEB SCH ×4 (08:10→20:25)
[2023-04-23] MEDS: ACETYLCYSTEINE 20% 200MG/ML 4 ML VIAL *FOR ORAL / INH USE ONLY NEB SCH ×4 (08:10→20:25)
[2023-04-23 09:47] LABS: BASO % 0.8 % (0-2.0); HEMATOCRIT 29.4 % (35.4-49); HEMOGLOBIN 9.5 GM/dL (11.7-16.9); LYMPH % 11.4 % (8-40); MCH 28.1 pg (25.7-33.7); MCHC 32.3 g/dl (32.0-35.9); MEAN PLT VOLUME 7.1 fl (7.5-11.1); MONO % 14.9 % (3.8-10.2); NEUT % 68.9 % (42.8-82.8); PLATELET COUNT 637 10^3/uL (134-434); RBC 3.39 M/mm3 (4.00-5.60); RDW 17.8 % (11.9-15.9); WHITE BLOOD COUNT 12.8 K/mm3 (4.0-10.0)
[2023-04-23] MEDS: ASCORBIC ACID 500 MG/5 ML UNIT DOSE CUP GT SCH ×2 (09:59→21:30)
[2023-04-23] MEDS: PANTOPRAZOLE SODIUM 40 MG VIAL IVPUSH SCH (09:59)
[2023-04-23] MEDS: MULTIVIT-MINERALS ORAL LIQUID GT SCH (10:00)
[2023-04-23] MEDS: ENOXAPARIN NA (PORCINE) 40 MG/0.4 ML DISP.SYRIN SQ SCH (10:00)
[2023-04-23] MEDS: OXYBUTYNIN CHLORIDE 5 MG TABLET NGT SCH ×2 (10:00→21:30)
[2023-04-23] MEDS: VENLAFAXINE HCL 37.5 MG TABLET NGT SCH ×2 (10:00→21:30)
[2023-04-23 10:16] LABS: POTASSIUM 4.8 mmol/L (3.5-5.1)
[2023-04-23] MEDS: FLUTICASONE PROP 0.05% 16 GM NASAL SPRAY NS SCH ×2 (10:21→21:30)
[2023-04-23] MEDS: COLLAGENASE CLOSTRIDIUM HIST. 30 GRAMS TUBE TP SCH (10:21)
[2023-04-23 10:22] LABS: ANISOCYTOSIS 3+; MACROCYTOSIS 0; OVALOCYTE 1+; TEAR DROP CELLS 1+
[2023-04-23 10:33] LABS: ALBUMIN 1.7 g/dl (3.4-5.0); CALCIUM 9.1 mg/dL (8.5-10.1); CREATININE 0.8 mg/dL (0.55-1.3)
[2023-04-23 10:35] LABS: BILIRUBIN,TOTAL 0.5 mg/dL (0.2-1); TOT PROT 7.1 g/dl (6.4-8.2)
[2023-04-23] MEDS: POLYETHYLENE GLYCOL (HEALTHYLAX) 3350 17 GM PACKET GT SCH (10:46)
[2023-04-23] MEDS: SENNOSIDES 8.8 MG/5 ML SYRUP GT SCH (21:29)
[2023-04-23] MEDS: MELATONIN 1 MG TABLET GT SCH (21:29)
[2023-04-24] MEDS: VANCOMYCIN ORAL SOLUTION 125 MG/2.5 ML GT SCH ×4 (06:03→23:25)
[2023-04-24] MEDS: GABAPENTIN 250 MG/5 ML ORAL SOLUTION, 470 ML BOTTLE GT SCH ×3 (06:03→21:26)
[2023-04-24] MEDS: INSULIN SLIDING SCALE (NOVOLOG) 1 VIAL SQ SCH ×2 (06:07→17:45)
[2023-04-24] MEDS: ACETYLCYSTEINE 20% 200MG/ML 4 ML VIAL *FOR ORAL / INH USE ONLY NEB SCH ×4 (07:40→20:55)
[2023-04-24] MEDS: ALBUTEROL SO4 0.083% IH SOL 2.5 MG/3 ML VIAL.NEB. NEB SCH ×4 (07:40→20:55)
[2023-04-24 09:07] LABS: HEMATOCRIT 28.8 % (35.4-49); MCH 27.9 pg (25.7-33.7); MCHC 31.3 g/dl (32.0-35.9); MEAN CELL VOLUME 89.3 fl (80-96); PLATELET COUNT 602 10^3/uL (134-434); RBC 3.23 M/mm3 (4.00-5.60); RDW 17.5 % (11.9-15.9); WHITE BLOOD COUNT 15.1 K/mm3 (4.0-10.0)
[2023-04-24 10:00] LABS: ANISOCYTOSIS 2+; MACROCYTOSIS 0
[2023-04-24] MEDS ORDERED: CEFTRIAXONE 1 GM in DEXTROSE 5%-WATER - 50 ML IVPB SCH (10:00)
[2023-04-24] MEDS: OXYBUTYNIN CHLORIDE 5 MG TABLET NGT SCH ×2 (10:33→21:25)
[2023-04-24] MEDS: ENOXAPARIN NA (PORCINE) 40 MG/0.4 ML DISP.SYRIN SQ SCH (10:33)
[2023-04-24] MEDS: PANTOPRAZOLE SODIUM 40 MG VIAL IVPUSH SCH (10:33)
[2023-04-24] MEDS: POLYETHYLENE GLYCOL (HEALTHYLAX) 3350 17 GM PACKET GT SCH (10:33)
[2023-04-24] MEDS: VENLAFAXINE HCL 37.5 MG TABLET NGT SCH ×2 (10:34→21:26)
[2023-04-24] MEDS: MULTIVIT-MINERALS ORAL LIQUID GT SCH (10:34)
[2023-04-24] MEDS: COLLAGENASE CLOSTRIDIUM HIST. 30 GRAMS TUBE TP SCH (10:35)
[2023-04-24] MEDS: FLUTICASONE PROP 0.05% 16 GM NASAL SPRAY NS SCH ×2 (10:35→21:27)
[2023-04-24] MEDS ORDERED: traMADol HCL 50 MG TABLET PEG ONE (12:22)
[2023-04-24] MEDS: ACETAMINOPHEN 325 MG TABLET (FP) PO PRN (12:57)
[2023-04-24] MEDS: ASCORBIC ACID 500 MG/5 ML UNIT DOSE CUP GT SCH ×2 (13:02→21:24)
[2023-04-24] MEDS: DAPTOMYCIN 350 MG in SODIUM CHLORIDE 50 ML IVPB SCH (17:49)
[2023-04-24] MEDS: SENNOSIDES 8.8 MG/5 ML SYRUP GT SCH (21:24)
[2023-04-24] MEDS: MELATONIN 1 MG TABLET GT SCH (21:24)
[2023-04-25] MEDS: VANCOMYCIN ORAL SOLUTION 125 MG/2.5 ML GT SCH ×3 (06:15→17:22)
[2023-04-25] MEDS: GABAPENTIN 250 MG/5 ML ORAL SOLUTION, 470 ML BOTTLE GT SCH ×2 (06:15→14:46)
[2023-04-25] MEDS: INSULIN SLIDING SCALE (NOVOLOG) 1 VIAL SQ SCH ×2 (06:18→17:05)
[2023-04-25] MEDS: ALBUTEROL SO4 0.083% IH SOL 2.5 MG/3 ML VIAL.NEB. NEB SCH ×4 (08:05→20:47)
[2023-04-25] MEDS: ACETYLCYSTEINE 20% 200MG/ML 4 ML VIAL *FOR ORAL / INH USE ONLY NEB SCH ×4 (08:05→20:47)
[2023-04-25 09:41] LABS: HEMATOCRIT 27.7 % (35.4-49); HEMOGLOBIN 8.7 GM/dL (11.7-16.9); MCH 28.1 pg (25.7-33.7); MCHC 31.4 g/dl (32.0-35.9); MEAN CELL VOLUME 89.3 fl (80-96); MEAN PLT VOLUME 7.3 fl (7.5-11.1); PLATELET COUNT 604 10^3/uL (134-434); RDW 17.4 % (11.9-15.9); WHITE BLOOD COUNT 13.7 K/mm3 (4.0-10.0)
[2023-04-25 09:46] LABS: INR 1.37 (0.83-1.09); PROTHROMBIN TIME (PATIENT) 15.8 SEC (9.7-13.0)
[2023-04-25 10:07] LABS: POTASSIUM 4.6 mmol/L (3.5-5.1)
[2023-04-25 10:11] LABS: CALCIUM 8.6 mg/dL (8.5-10.1); MAGNESIUM 2.2 mg/dL (1.8-2.4)
[2023-04-25 10:14] LABS: CREATININE 0.9 mg/dL (0.55-1.3); PHOSPHOROUS 4.1 mg/dL (2.5-4.9)
[2023-04-25 11:00] LABS: ANISOCYTOSIS 1+; MACROCYTOSIS 1+
[2023-04-25] MEDS: OXYBUTYNIN CHLORIDE 5 MG TABLET NGT SCH ×2 (11:46→23:00)
[2023-04-25] MEDS: CEFTRIAXONE 2 GM in DEXTROSE 5%-WATER 100 ML IVPB SCH (11:46)
[2023-04-25] MEDS: PANTOPRAZOLE SODIUM 40 MG VIAL IVPUSH SCH (11:47)
[2023-04-25] MEDS: MULTIVIT-MINERALS ORAL LIQUID GT SCH (11:47)
[2023-04-25] MEDS: ASCORBIC ACID 500 MG/5 ML UNIT DOSE CUP GT SCH ×2 (11:47→23:00)
[2023-04-25] MEDS: VENLAFAXINE HCL 37.5 MG TABLET NGT SCH ×2 (11:48→23:00)
[2023-04-25] MEDS: POLYETHYLENE GLYCOL (HEALTHYLAX) 3350 17 GM PACKET GT SCH (11:48)
[2023-04-25] MEDS: ENOXAPARIN NA (PORCINE) 40 MG/0.4 ML DISP.SYRIN SQ SCH (11:49)
[2023-04-25] MEDS: FLUTICASONE PROP 0.05% 16 GM NASAL SPRAY NS SCH ×2 (11:50→23:00)
[2023-04-25] MEDS: COLLAGENASE CLOSTRIDIUM HIST. 30 GRAMS TUBE TP SCH (11:51)
[2023-04-25] MEDS: DAPTOMYCIN 350 MG in SODIUM CHLORIDE 50 ML IVPB SCH (17:22)
[2023-04-25] MEDS ORDERED: ACETAMINOPHEN 650 MG/20.3 ML ORAL SOLUTION (CUPS) GT PRN (22:14)
[2023-04-25] MEDS: MELATONIN 1 MG TABLET GT SCH (23:00)
[2023-04-25] MEDS: SENNOSIDES 8.8 MG/5 ML SYRUP GT SCH (23:44)
[2023-04-26] MEDS: VANCOMYCIN ORAL SOLUTION 125 MG/2.5 ML GT SCH ×4 (01:00→17:17)
[2023-04-26] MEDS: GABAPENTIN 250 MG/5 ML ORAL SOLUTION, 470 ML BOTTLE GT SCH ×4 (01:00→23:08)
[2023-04-26] MEDS: INSULIN SLIDING SCALE (NOVOLOG) 1 VIAL SQ SCH ×2 (07:06→17:44)
[2023-04-26] MEDS: ACETYLCYSTEINE 20% 200MG/ML 4 ML VIAL *FOR ORAL / INH USE ONLY NEB SCH ×4 (08:20→20:05)
[2023-04-26] MEDS: ALBUTEROL SO4 0.083% IH SOL 2.5 MG/3 ML VIAL.NEB. NEB SCH ×4 (08:20→20:07)
[2023-04-26 09:22] LABS: HEMATOCRIT 28.2 % (35.4-49); HEMOGLOBIN 9.2 GM/dL (11.7-16.9); MCH 28.6 pg (25.7-33.7); MCHC 32.6 g/dl (32.0-35.9); MEAN CELL VOLUME 87.8 fl (80-96); MEAN PLT VOLUME 7.2 fl (7.5-11.1); PLATELET COUNT 597 10^3/uL (134-434); RBC 3.22 M/mm3 (4.00-5.60); RDW 17.8 % (11.9-15.9); WHITE BLOOD COUNT 15.3 K/mm3 (4.0-10.0)
[2023-04-26] MEDS: CEFTRIAXONE 2 GM in DEXTROSE 5%-WATER 100 ML IVPB SCH (09:36)
[2023-04-26] MEDS: MULTIVIT-MINERALS ORAL LIQUID GT SCH (09:38)
[2023-04-26] MEDS: ASCORBIC ACID 500 MG/5 ML UNIT DOSE CUP GT SCH ×2 (09:38→23:06)
[2023-04-26] MEDS: ENOXAPARIN NA (PORCINE) 40 MG/0.4 ML DISP.SYRIN SQ SCH (09:38)
[2023-04-26] MEDS: OXYBUTYNIN CHLORIDE 5 MG TABLET NGT SCH ×2 (09:38→23:06)
[2023-04-26] MEDS: VENLAFAXINE HCL 37.5 MG TABLET NGT SCH ×2 (09:38→23:05)
[2023-04-26] MEDS: PANTOPRAZOLE SODIUM 40 MG VIAL IVPUSH SCH (09:39)
[2023-04-26] MEDS: FLUTICASONE PROP 0.05% 16 GM NASAL SPRAY NS SCH ×2 (09:42→23:10)
[2023-04-26] MEDS: POLYETHYLENE GLYCOL (HEALTHYLAX) 3350 17 GM PACKET GT SCH (09:42)
[2023-04-26 10:03] LABS: POTASSIUM 4.5 mmol/L (3.5-5.1)
[2023-04-26 10:16] LABS: ALBUMIN 1.6 g/dl (3.4-5.0)
[2023-04-26 10:18] LABS: CALCIUM 9.3 mg/dL (8.5-10.1); PHOSPHOROUS 3.6 mg/dL (2.5-4.9)
[2023-04-26 10:19] LABS: MAGNESIUM 2.4 mg/dL (1.8-2.4)
[2023-04-26 10:20] LABS: BILIRUBIN,TOTAL 0.3 mg/dL (0.2-1); BLOOD UREA NITROGEN 30.5 mg/dL (7-18); TOT PROT 7.2 g/dl (6.4-8.2)
[2023-04-26 10:42] LABS: ANISOCYTOSIS 2+; MACROCYTOSIS 0
[2023-04-26] MEDS: BANATROL PLUS POWDER PACKET GT SCH ×2 (14:37→23:06)
[2023-04-26] MEDS: COLLAGENASE CLOSTRIDIUM HIST. 30 GRAMS TUBE TP SCH (15:09)
[2023-04-26] MEDS ORDERED: IBUPROFEN 100 MG/5 ML UNIT DOSE CUPS GT ONE (15:43)
[2023-04-26] MEDS: DAPTOMYCIN 350 MG in SODIUM CHLORIDE 50 ML IVPB SCH (17:17)
[2023-04-26] MEDS: SENNOSIDES 8.8 MG/5 ML SYRUP GT SCH (23:05)
[2023-04-26] MEDS: MELATONIN 1 MG TABLET GT SCH (23:06)
[2023-04-27] MEDS: VANCOMYCIN ORAL SOLUTION 125 MG/2.5 ML GT SCH ×5 (00:10→23:35)
[2023-04-27] MEDS: BANATROL PLUS POWDER PACKET GT SCH ×3 (05:34→22:55)
[2023-04-27] MEDS: GABAPENTIN 250 MG/5 ML ORAL SOLUTION, 470 ML BOTTLE GT SCH ×3 (06:13→22:56)
[2023-04-27] MEDS: INSULIN SLIDING SCALE (NOVOLOG) 1 VIAL SQ SCH ×2 (06:23→17:57)
[2023-04-27] MEDS: ALBUTEROL SO4 0.083% IH SOL 2.5 MG/3 ML VIAL.NEB. NEB SCH ×4 (08:50→20:35)
[2023-04-27] MEDS: ACETYLCYSTEINE 20% 200MG/ML 4 ML VIAL *FOR ORAL / INH USE ONLY NEB SCH ×4 (08:50→20:35)
[2023-04-27 10:43] LABS: HEMATOCRIT 28.2 % (35.4-49); HEMOGLOBIN 8.9 GM/dL (11.7-16.9); MCH 27.9 pg (25.7-33.7); MCHC 31.4 g/dl (32.0-35.9); MEAN PLT VOLUME 7.3 fl (7.5-11.1); PLATELET COUNT 612 10^3/uL (134-434); RBC 3.17 M/mm3 (4.00-5.60); RDW 17.5 % (11.9-15.9); WHITE BLOOD COUNT 22.8 K/mm3 (4.0-10.0)
[2023-04-27 11:00] LABS: POTASSIUM 4.4 mmol/L (3.5-5.1)
[2023-04-27 11:04] LABS: CALCIUM 9.6 mg/dL (8.5-10.1)
[2023-04-27 11:05] LABS: ALBUMIN 1.6 g/dl (3.4-5.0); BLOOD UREA NITROGEN 31.9 mg/dL (7-18)
[2023-04-27 11:10] LABS: BILIRUBIN,TOTAL 0.5 mg/dL (0.2-1); TOT PROT 7.3 g/dl (6.4-8.2)
[2023-04-27 11:16] LABS: ANISOCYTOSIS 2+; MACROCYTOSIS 0
[2023-04-27] MEDS: CEFTRIAXONE 2 GM in DEXTROSE 5%-WATER 100 ML IVPB SCH (11:22)
[2023-04-27] MEDS: ENOXAPARIN NA (PORCINE) 40 MG/0.4 ML DISP.SYRIN SQ SCH (11:23)
[2023-04-27] MEDS: ASCORBIC ACID 500 MG/5 ML UNIT DOSE CUP GT SCH ×2 (11:23→22:54)
[2023-04-27] MEDS: PANTOPRAZOLE SODIUM 40 MG VIAL IVPUSH SCH (11:23)
[2023-04-27] MEDS: MULTIVIT-MINERALS ORAL LIQUID GT SCH (11:24)
[2023-04-27] MEDS: OXYBUTYNIN CHLORIDE 5 MG TABLET NGT SCH ×2 (11:24→22:54)
[2023-04-27] MEDS: COLLAGENASE CLOSTRIDIUM HIST. 30 GRAMS TUBE TP SCH (11:25)
[2023-04-27] MEDS: VENLAFAXINE HCL 37.5 MG TABLET NGT SCH ×2 (11:25→22:53)
[2023-04-27] MEDS: FLUTICASONE PROP 0.05% 16 GM NASAL SPRAY NS SCH ×2 (11:25→22:57)
[2023-04-27] MEDS: POLYETHYLENE GLYCOL (HEALTHYLAX) 3350 17 GM PACKET GT SCH (11:29)
[2023-04-27] MEDS: DAPTOMYCIN 350 MG in SODIUM CHLORIDE 50 ML IVPB SCH (17:57)
[2023-04-27] MEDS: MELATONIN 1 MG TABLET GT SCH (22:53)
[2023-04-27] MEDS: SENNOSIDES 8.8 MG/5 ML SYRUP GT SCH (22:53)
[2023-04-28] MEDS: GABAPENTIN 250 MG/5 ML ORAL SOLUTION, 470 ML BOTTLE GT SCH ×2 (06:21→14:56)
[2023-04-28] MEDS: BANATROL PLUS POWDER PACKET GT SCH ×2 (06:21→14:57)
[2023-04-28] MEDS: VANCOMYCIN ORAL SOLUTION 125 MG/2.5 ML GT SCH ×4 (06:21→18:51)
[2023-04-28] MEDS: INSULIN SLIDING SCALE (NOVOLOG) 1 VIAL SQ SCH ×2 (06:40→18:05)
[2023-04-28 07:36] LABS: HEMATOCRIT 28.4 % (35.4-49); HEMOGLOBIN 8.8 GM/dL (11.7-16.9); MCH 27.9 pg (25.7-33.7); MCHC 31.1 g/dl (32.0-35.9); MEAN CELL VOLUME 89.6 fl (80-96); MEAN PLT VOLUME 7.3 fl (7.5-11.1); PLATELET COUNT 557 10^3/uL (134-434); RBC 3.17 M/mm3 (4.00-5.60); RDW 17.6 % (11.9-15.9); WHITE BLOOD COUNT 22.1 K/mm3 (4.0-10.0)
[2023-04-28 07:45] LABS: POTASSIUM 4.4 mmol/L (3.5-5.1)
[2023-04-28 07:48] LABS: CALCIUM 9.2 mg/dL (8.5-10.1)
[2023-04-28 07:49] LABS: ALBUMIN 1.5 g/dl (3.4-5.0); BLOOD UREA NITROGEN 32.6 mg/dL (7-18); MAGNESIUM 2.2 mg/dL (1.8-2.4)
[2023-04-28] MEDS: ALBUTEROL SO4 0.083% IH SOL 2.5 MG/3 ML VIAL.NEB. NEB SCH ×4 (07:52→19:40)
[2023-04-28] MEDS: ACETYLCYSTEINE 20% 200MG/ML 4 ML VIAL *FOR ORAL / INH USE ONLY NEB SCH ×4 (07:52→19:40)
[2023-04-28 08:01] LABS: BILIRUBIN,TOTAL 0.2 mg/dL (0.2-1); CREATININE 0.9 mg/dL (0.55-1.3); PHOSPHOROUS 3.7 mg/dL (2.5-4.9); TOT PROT 6.9 g/dl (6.4-8.2)
[2023-04-28 08:43] LABS: ANISOCYTOSIS 0; MACROCYTOSIS 0
[2023-04-28] MEDS: MULTIVIT-MINERALS ORAL LIQUID GT SCH (10:30)
[2023-04-28] MEDS: ASCORBIC ACID 500 MG/5 ML UNIT DOSE CUP GT SCH (10:31)
[2023-04-28] MEDS: OXYBUTYNIN CHLORIDE 5 MG TABLET NGT SCH (10:31)
[2023-04-28] MEDS: CEFTRIAXONE 2 GM in DEXTROSE 5%-WATER 100 ML IVPB SCH (10:31)
[2023-04-28] MEDS: VENLAFAXINE HCL 37.5 MG TABLET NGT SCH (10:31)
[2023-04-28] MEDS: ENOXAPARIN NA (PORCINE) 40 MG/0.4 ML DISP.SYRIN SQ SCH (10:31)
[2023-04-28] MEDS: PANTOPRAZOLE SODIUM 40 MG VIAL IVPUSH SCH (10:32)
[2023-04-28] MEDS: POLYETHYLENE GLYCOL (HEALTHYLAX) 3350 17 GM PACKET GT SCH (10:32)
[2023-04-28] MEDS: FLUTICASONE PROP 0.05% 16 GM NASAL SPRAY NS SCH ×2 (10:32→23:00)
[2023-04-28] MEDS ORDERED: PHENYLEPHRINE HCL/COCOA BUTTER 1 EACH SUPP.RECT RC ONE (14:54)
[2023-04-28] MEDS: COLLAGENASE CLOSTRIDIUM HIST. 30 GRAMS TUBE TP SCH (16:00)
[2023-04-28] MEDS: DAPTOMYCIN 350 MG in SODIUM CHLORIDE 50 ML IVPB SCH (17:46)
[2023-04-28] MEDS ORDERED: TUBE FEED DECLOGGING SOLUTION 12,000 UNITS GT ONE (19:30)
[2023-04-29] MEDS: BANATROL PLUS POWDER PACKET GT SCH ×4 (03:27→23:01)
[2023-04-29] MEDS: OXYBUTYNIN CHLORIDE 5 MG TABLET NGT SCH ×3 (03:28→23:01)
[2023-04-29] MEDS: GABAPENTIN 250 MG/5 ML ORAL SOLUTION, 470 ML BOTTLE GT SCH ×4 (03:46→23:03)
[2023-04-29] MEDS: MELATONIN 1 MG TABLET GT SCH ×2 (03:46→23:02)
[2023-04-29] MEDS: VENLAFAXINE HCL 37.5 MG TABLET NGT SCH ×3 (03:46→23:02)
[2023-04-29] MEDS: SENNOSIDES 8.8 MG/5 ML SYRUP GT SCH ×2 (03:47→23:03)
[2023-04-29] MEDS: VANCOMYCIN ORAL SOLUTION 125 MG/2.5 ML GT SCH ×4 (03:47→17:34)
[2023-04-29] MEDS: ASCORBIC ACID 500 MG/5 ML UNIT DOSE CUP GT SCH ×3 (03:47→23:03)
[2023-04-29] MEDS: INSULIN SLIDING SCALE (NOVOLOG) 1 VIAL SQ SCH ×2 (06:38→17:39)
[2023-04-29] MEDS: ALBUTEROL SO4 0.083% IH SOL 2.5 MG/3 ML VIAL.NEB. NEB SCH ×4 (07:15→20:24)
[2023-04-29] MEDS: ACETYLCYSTEINE 20% 200MG/ML 4 ML VIAL *FOR ORAL / INH USE ONLY NEB SCH ×4 (07:52→20:24)
[2023-04-29] MEDS ORDERED: SEVOFLURANE 250 ML BTL ONE (08:53)
[2023-04-29] MEDS ORDERED: PROPOFOL 20 ML ONE (08:58)
[2023-04-29] MEDS ORDERED: FENTANYL CITRATE/PF 50 MCG/ML VIAL ONE ×2 (08:58→10:03)
[2023-04-29] MEDS ORDERED: MIDAZOLAM HCL 2 MG/2 ML SINGLE DOSE VIAL ONE (08:59)
[2023-04-29] MEDS ORDERED: ONDANSETRON 4 MG/2 ML VIAL ONE (09:00)
[2023-04-29] MEDS ORDERED: TUBE FEED DECLOGGING SOLUTION 12,000 UNITS GT ONE ×2 (09:30→11:45)
[2023-04-29] MEDS ORDERED: NOREPINEPHRINE BITARTRATE 4 MG/4 ML ML IV ONE (09:31)
[2023-04-29] MEDS ORDERED: DEXAMETHASONE SOD PHOSPHATE 4 MG/1 ML VIAL ONE (09:46)
[2023-04-29] MEDS ORDERED: ONDANSETRON 4 MG/2 ML VIAL IVPUSH PRN (11:05)
[2023-04-29] MEDS ORDERED: ACETAMINOPHEN 650 MG/20.3 ML ORAL SOLUTION (CUPS) GT PRN (11:05)
[2023-04-29] MEDS: LACTATED RINGERS SOLUTION 1,000 ML IV SCH (12:31)
[2023-04-29] MEDS: CEFTRIAXONE 2 GM in DEXTROSE 5%-WATER 100 ML IVPB SCH (12:40)
[2023-04-29] MEDS: MULTIVIT-MINERALS ORAL LIQUID GT SCH (13:05)
[2023-04-29] MEDS: POLYETHYLENE GLYCOL (HEALTHYLAX) 3350 17 GM PACKET GT SCH (13:06)
[2023-04-29] MEDS: ENOXAPARIN NA (PORCINE) 40 MG/0.4 ML DISP.SYRIN SQ SCH (13:06)
[2023-04-29] MEDS: FLUTICASONE PROP 0.05% 16 GM NASAL SPRAY NS SCH ×2 (13:06→23:02)
[2023-04-29] MEDS: COLLAGENASE CLOSTRIDIUM HIST. 30 GRAMS TUBE TP SCH (13:07)
[2023-04-29] MEDS: PANTOPRAZOLE SODIUM 40 MG VIAL IVPUSH SCH (13:07)
[2023-04-29 13:34] LABS: HEMATOCRIT 27.9 % (35.4-49); HEMOGLOBIN 8.7 GM/dL (11.7-16.9); MCH 27.7 pg (25.7-33.7); MEAN CELL VOLUME 89.4 fl (80-96); MEAN PLT VOLUME 7.3 fl (7.5-11.1); PLATELET COUNT 563 10^3/uL (134-434); RBC 3.12 M/mm3 (4.00-5.60); RDW 17.5 % (11.9-15.9); WHITE BLOOD COUNT 23.1 K/mm3 (4.0-10.0)
[2023-04-29 13:47] LABS: CALCIUM 9.7 mg/dL (8.5-10.1)
[2023-04-29 13:48] LABS: ALBUMIN 1.4 g/dl (3.4-5.0); BLOOD UREA NITROGEN 32.1 mg/dL (7-18); MAGNESIUM 2.4 mg/dL (1.8-2.4)
[2023-04-29 13:51] LABS: PHOSPHOROUS 4.9 mg/dL (2.5-4.9)
[2023-04-29 13:53] LABS: BILIRUBIN,TOTAL 0.3 mg/dL (0.2-1); TOT PROT 6.8 g/dl (6.4-8.2)
[2023-04-29 13:55] LABS: POTASSIUM 4.7 mmol/L (3.5-5.1)
[2023-04-29 14:04] LABS: ANISOCYTOSIS 2+; MACROCYTOSIS 0
[2023-04-29] MEDS ORDERED: DAPTOMYCIN 350 MG in SODIUM CHLORIDE 50 ML IVPB SCH (17:00)
[2023-04-30] MEDS: VANCOMYCIN ORAL SOLUTION 125 MG/2.5 ML GT SCH ×4 (00:34→18:02)
[2023-04-30] MEDS: GABAPENTIN 250 MG/5 ML ORAL SOLUTION, 470 ML BOTTLE GT SCH ×3 (06:40→22:23)
[2023-04-30] MEDS: BANATROL PLUS POWDER PACKET GT SCH ×3 (06:40→22:21)
[2023-04-30] MEDS: INSULIN SLIDING SCALE (NOVOLOG) 1 VIAL SQ SCH ×2 (06:46→16:22)
[2023-04-30] MEDS: ALBUTEROL SO4 0.083% IH SOL 2.5 MG/3 ML VIAL.NEB. NEB SCH ×4 (07:15→20:13)
[2023-04-30] MEDS: ACETYLCYSTEINE 20% 200MG/ML 4 ML VIAL *FOR ORAL / INH USE ONLY NEB SCH ×4 (07:15→20:13)
[2023-04-30] MEDS ORDERED: CEFTRIAXONE 2 GM in DEXTROSE 5%-WATER 100 ML IVPB SCH (10:00)
[2023-04-30] MEDS: VENLAFAXINE HCL 37.5 MG TABLET NGT SCH ×2 (10:02→22:22)
[2023-04-30] MEDS: MULTIVIT-MINERALS ORAL LIQUID GT SCH (10:02)
[2023-04-30] MEDS: PANTOPRAZOLE SODIUM 40 MG VIAL IVPUSH SCH (10:02)
[2023-04-30] MEDS: OXYBUTYNIN CHLORIDE 5 MG TABLET NGT SCH ×2 (10:03→22:21)
[2023-04-30] MEDS: ENOXAPARIN NA (PORCINE) 40 MG/0.4 ML DISP.SYRIN SQ SCH (10:04)
[2023-04-30] MEDS: POLYETHYLENE GLYCOL (HEALTHYLAX) 3350 17 GM PACKET GT SCH (10:04)
[2023-04-30] MEDS: FLUTICASONE PROP 0.05% 16 GM NASAL SPRAY NS SCH ×2 (10:04→22:22)
[2023-04-30] MEDS: ASCORBIC ACID 500 MG/5 ML UNIT DOSE CUP GT SCH ×2 (10:04→22:24)
[2023-04-30] MEDS: COLLAGENASE CLOSTRIDIUM HIST. 30 GRAMS TUBE TP SCH (10:05)
[2023-04-30 10:13] LABS: HEMATOCRIT 27.4 % (35.4-49); HEMOGLOBIN 8.7 GM/dL (11.7-16.9); MCH 28.2 pg (25.7-33.7); MCHC 31.9 g/dl (32.0-35.9); MEAN CELL VOLUME 88.4 fl (80-96); MEAN PLT VOLUME 7.6 fl (7.5-11.1); PLATELET COUNT 589 10^3/uL (134-434); RDW 17.7 % (11.9-15.9); WHITE BLOOD COUNT 28.5 K/mm3 (4.0-10.0)
[2023-04-30 10:21] LABS: POTASSIUM 4.6 mmol/L (3.5-5.1)
[2023-04-30 10:30] LABS: ALBUMIN 1.5 g/dl (3.4-5.0); CALCIUM 9.3 mg/dL (8.5-10.1)
[2023-04-30 10:31] LABS: BLOOD UREA NITROGEN 48.3 mg/dL (7-18); MAGNESIUM 2.6 mg/dL (1.8-2.4)
[2023-04-30 10:33] LABS: PHOSPHOROUS 4.8 mg/dL (2.5-4.9)
[2023-04-30 10:34] LABS: CREATININE 1.1 mg/dL (0.55-1.3)
[2023-04-30 10:35] LABS: BILIRUBIN,TOTAL 0.4 mg/dL (0.2-1); TOT PROT 6.8 g/dl (6.4-8.2)
[2023-04-30 11:13] LABS: ANISOCYTOSIS 0; HELMET CELLS 0; HOWELL-JOLLY BODIES 0; MACROCYTOSIS 0; OVALOCYTE 0; ROULEAU 0; SICKELED CELLS 0; TARGET CELLS 0; TEAR DROP CELLS 0; TOXIC GRANULATION 0
[2023-04-30] MEDS: LACTATED RINGERS SOLUTION 1,000 ML IV SCH (14:16)
[2023-04-30] MEDS ORDERED: ALPRAZolam 0.25 MG TABLET PO PRN (16:21)
[2023-04-30] MEDS: SENNOSIDES 8.8 MG/5 ML SYRUP GT SCH (22:23)
[2023-04-30] MEDS: MELATONIN 1 MG TABLET GT SCH (22:23)
[2023-05-01] MEDS: VANCOMYCIN ORAL SOLUTION 125 MG/2.5 ML GT SCH ×4 (01:09→17:18)
[2023-05-01] MEDS: GABAPENTIN 250 MG/5 ML ORAL SOLUTION, 470 ML BOTTLE GT SCH ×3 (06:10→22:41)
[2023-05-01] MEDS: BANATROL PLUS POWDER PACKET GT SCH ×3 (06:10→22:39)
[2023-05-01] MEDS: INSULIN SLIDING SCALE (NOVOLOG) 1 VIAL SQ SCH ×2 (06:59→16:37)
[2023-05-01] MEDS: ALBUTEROL SO4 0.083% IH SOL 2.5 MG/3 ML VIAL.NEB. NEB SCH ×4 (07:30→20:32)
[2023-05-01] MEDS: ACETYLCYSTEINE 20% 200MG/ML 4 ML VIAL *FOR ORAL / INH USE ONLY NEB SCH ×4 (07:30→20:31)
[2023-05-01 09:01] LABS: HEMATOCRIT 26.1 % (35.4-49); HEMOGLOBIN 8.1 GM/dL (11.7-16.9); MCH 28.2 pg (25.7-33.7); MCHC 31.1 g/dl (32.0-35.9); MEAN CELL VOLUME 90.5 fl (80-96); MEAN PLT VOLUME 7.5 fl (7.5-11.1); PLATELET COUNT 539 10^3/uL (134-434); RBC 2.88 M/mm3 (4.00-5.60); RDW 17.4 % (11.9-15.9); WHITE BLOOD COUNT 20.8 K/mm3 (4.0-10.0)
[2023-05-01] MEDS: MULTIVIT-MINERALS ORAL LIQUID GT SCH (09:06)
[2023-05-01] MEDS: PANTOPRAZOLE SODIUM 40 MG VIAL IVPUSH SCH (09:06)
[2023-05-01] MEDS: ENOXAPARIN NA (PORCINE) 40 MG/0.4 ML DISP.SYRIN SQ SCH (09:06)
[2023-05-01] MEDS: VENLAFAXINE HCL 37.5 MG TABLET NGT SCH ×2 (09:06→22:40)
[2023-05-01] MEDS: OXYBUTYNIN CHLORIDE 5 MG TABLET NGT SCH ×2 (09:06→22:40)
[2023-05-01 09:07] LABS: POTASSIUM 4.7 mmol/L (3.5-5.1)
[2023-05-01] MEDS: POLYETHYLENE GLYCOL (HEALTHYLAX) 3350 17 GM PACKET GT SCH (09:07)
[2023-05-01] MEDS: FLUTICASONE PROP 0.05% 16 GM NASAL SPRAY NS SCH ×2 (09:07→22:40)
[2023-05-01] MEDS: ASCORBIC ACID 500 MG/5 ML UNIT DOSE CUP GT SCH ×2 (09:07→22:41)
[2023-05-01] MEDS: COLLAGENASE CLOSTRIDIUM HIST. 30 GRAMS TUBE TP SCH (09:07)
[2023-05-01 09:13] LABS: CALCIUM 8.5 mg/dL (8.5-10.1)
[2023-05-01 09:14] LABS: BLOOD UREA NITROGEN 47.7 mg/dL (7-18)
[2023-05-01 09:17] LABS: CREATININE 0.9 mg/dL (0.55-1.3)
[2023-05-01 11:56] LABS: ANISOCYTOSIS 2+; MACROCYTOSIS 0
[2023-05-01] MEDS: LACTATED RINGERS SOLUTION 1,000 ML IV SCH (17:18)
[2023-05-01] MEDS: MELATONIN 1 MG TABLET GT SCH (22:40)
[2023-05-01] MEDS: SENNOSIDES 8.8 MG/5 ML SYRUP GT SCH (22:41)
[2023-05-02] MEDS: VANCOMYCIN ORAL SOLUTION 125 MG/2.5 ML GT SCH ×5 (00:09→23:24)
[2023-05-02] MEDS: BANATROL PLUS POWDER PACKET GT SCH ×3 (05:45→22:00)
[2023-05-02] MEDS: GABAPENTIN 250 MG/5 ML ORAL SOLUTION, 470 ML BOTTLE GT SCH ×3 (05:45→22:01)
[2023-05-02] MEDS: INSULIN SLIDING SCALE (NOVOLOG) 1 VIAL SQ SCH ×2 (06:05→16:34)
[2023-05-02] MEDS: ALBUTEROL SO4 0.083% IH SOL 2.5 MG/3 ML VIAL.NEB. NEB SCH ×4 (08:55→20:30)
[2023-05-02] MEDS: ACETYLCYSTEINE 20% 200MG/ML 4 ML VIAL *FOR ORAL / INH USE ONLY NEB SCH ×4 (08:55→20:30)
[2023-05-02] MEDS: PANTOPRAZOLE SODIUM 40 MG VIAL IVPUSH SCH (10:11)
[2023-05-02] MEDS: ENOXAPARIN NA (PORCINE) 40 MG/0.4 ML DISP.SYRIN SQ SCH (10:11)
[2023-05-02] MEDS: FLUTICASONE PROP 0.05% 16 GM NASAL SPRAY NS SCH ×2 (10:11→22:29)
[2023-05-02] MEDS: ASCORBIC ACID 500 MG/5 ML UNIT DOSE CUP GT SCH ×2 (14:23→22:01)
[2023-05-02] MEDS: VENLAFAXINE HCL 37.5 MG TABLET NGT SCH ×2 (14:24→22:05)
[2023-05-02] MEDS: OXYBUTYNIN CHLORIDE 5 MG TABLET NGT SCH ×2 (14:24→22:00)
[2023-05-02] MEDS: MULTIVIT-MINERALS ORAL LIQUID GT SCH (14:24)
[2023-05-02] MEDS: POLYETHYLENE GLYCOL (HEALTHYLAX) 3350 17 GM PACKET GT SCH (14:25)
[2023-05-02] MEDS: COLLAGENASE CLOSTRIDIUM HIST. 30 GRAMS TUBE TP SCH (16:26)
[2023-05-02] MEDS: SENNOSIDES 8.8 MG/5 ML SYRUP GT SCH (22:00)
[2023-05-02] MEDS: MELATONIN 1 MG TABLET GT SCH (22:00)
[2023-05-03] MEDS: VANCOMYCIN ORAL SOLUTION 125 MG/2.5 ML GT SCH ×3 (05:04→17:01)
[2023-05-03] MEDS: BANATROL PLUS POWDER PACKET GT SCH ×3 (05:05→22:02)
[2023-05-03] MEDS: GABAPENTIN 250 MG/5 ML ORAL SOLUTION, 470 ML BOTTLE GT SCH ×3 (05:05→22:02)
[2023-05-03] MEDS: INSULIN SLIDING SCALE (NOVOLOG) 1 VIAL SQ SCH ×2 (06:07→17:00)
[2023-05-03] MEDS: ACETYLCYSTEINE 20% 200MG/ML 4 ML VIAL *FOR ORAL / INH USE ONLY NEB SCH ×4 (08:54→20:37)
[2023-05-03] MEDS: ALBUTEROL SO4 0.083% IH SOL 2.5 MG/3 ML VIAL.NEB. NEB SCH ×4 (08:54→20:38)
[2023-05-03 09:33] LABS: HEMATOCRIT 25.5 % (35.4-49); MCH 27.9 pg (25.7-33.7); MCHC 31.6 g/dl (32.0-35.9); MEAN CELL VOLUME 88.4 fl (80-96); MEAN PLT VOLUME 7.3 fl (7.5-11.1); PLATELET COUNT 551 10^3/uL (134-434); RBC 2.88 M/mm3 (4.00-5.60); WHITE BLOOD COUNT 22.2 K/mm3 (4.0-10.0)
[2023-05-03 09:45] LABS: POTASSIUM 4.4 mmol/L (3.5-5.1)
[2023-05-03 09:49] LABS: ALBUMIN 1.4 g/dl (3.4-5.0); MAGNESIUM 2.1 mg/dL (1.8-2.4)
[2023-05-03 09:52] LABS: CREATININE 0.9 mg/dL (0.55-1.3); PHOSPHOROUS 3.4 mg/dL (2.5-4.9)
[2023-05-03 09:54] LABS: BILIRUBIN,TOTAL 0.3 mg/dL (0.2-1)
[2023-05-03] MEDS: COLLAGENASE CLOSTRIDIUM HIST. 30 GRAMS TUBE TP SCH (10:22)
[2023-05-03] MEDS: ENOXAPARIN NA (PORCINE) 40 MG/0.4 ML DISP.SYRIN SQ SCH (10:31)
[2023-05-03] MEDS: ASCORBIC ACID 500 MG/5 ML UNIT DOSE CUP GT SCH ×2 (10:31→22:03)
[2023-05-03] MEDS: MULTIVIT-MINERALS ORAL LIQUID GT SCH (10:31)
[2023-05-03] MEDS: PANTOPRAZOLE SODIUM 40 MG VIAL IVPUSH SCH (10:32)
[2023-05-03] MEDS: FLUTICASONE PROP 0.05% 16 GM NASAL SPRAY NS SCH ×2 (10:32→22:00)
[2023-05-03] MEDS: OXYBUTYNIN CHLORIDE 5 MG TABLET NGT SCH ×2 (10:32→22:02)
[2023-05-03] MEDS: VENLAFAXINE HCL 37.5 MG TABLET NGT SCH ×2 (10:32→22:02)
[2023-05-03] MEDS: POLYETHYLENE GLYCOL (HEALTHYLAX) 3350 17 GM PACKET GT SCH (10:32)
[2023-05-03 11:10] LABS: ANISOCYTOSIS 3+; MACROCYTOSIS 0; OVALOCYTE 1+
[2023-05-03] MEDS: MELATONIN 1 MG TABLET GT SCH (22:02)
[2023-05-03] MEDS: SENNOSIDES 8.8 MG/5 ML SYRUP GT SCH (22:03)
[2023-05-04] MEDS: VANCOMYCIN ORAL SOLUTION 125 MG/2.5 ML GT SCH ×3 (00:03→13:45)
[2023-05-04] MEDS: BANATROL PLUS POWDER PACKET GT SCH ×2 (06:00→14:13)
[2023-05-04] MEDS: GABAPENTIN 250 MG/5 ML ORAL SOLUTION, 470 ML BOTTLE GT SCH ×2 (06:00→14:14)
[2023-05-04] MEDS: INSULIN SLIDING SCALE (NOVOLOG) 1 VIAL SQ SCH (06:27)
[2023-05-04] MEDS: ALBUTEROL SO4 0.083% IH SOL 2.5 MG/3 ML VIAL.NEB. NEB SCH ×2 (08:28→11:32)
[2023-05-04] MEDS: ACETYLCYSTEINE 20% 200MG/ML 4 ML VIAL *FOR ORAL / INH USE ONLY NEB SCH ×2 (08:28→11:32)
[2023-05-04 10:12] LABS: HEMATOCRIT 25.8 % (35.4-49); HEMOGLOBIN 7.8 GM/dL (11.7-16.9); MCH 27.2 pg (25.7-33.7); MCHC 30.3 g/dl (32.0-35.9); MEAN CELL VOLUME 89.6 fl (80-96); MEAN PLT VOLUME 7.3 fl (7.5-11.1); PLATELET COUNT 625 10^3/uL (134-434); RBC 2.88 M/mm3 (4.00-5.60); RDW 17.8 % (11.9-15.9)
[2023-05-04] MEDS: OXYBUTYNIN CHLORIDE 5 MG TABLET NGT SCH (10:28)
[2023-05-04] MEDS: ENOXAPARIN NA (PORCINE) 40 MG/0.4 ML DISP.SYRIN SQ SCH (10:28)
[2023-05-04] MEDS: PANTOPRAZOLE SODIUM 40 MG VIAL IVPUSH SCH (10:28)
[2023-05-04] MEDS: VENLAFAXINE HCL 37.5 MG TABLET NGT SCH (10:29)
[2023-05-04] MEDS: MULTIVIT-MINERALS ORAL LIQUID GT SCH (10:29)
[2023-05-04] MEDS: POLYETHYLENE GLYCOL (HEALTHYLAX) 3350 17 GM PACKET GT SCH (10:32)
[2023-05-04] MEDS: FLUTICASONE PROP 0.05% 16 GM NASAL SPRAY NS SCH (10:33)
[2023-05-04] MEDS: COLLAGENASE CLOSTRIDIUM HIST. 30 GRAMS TUBE TP SCH (10:33)
[2023-05-04] MEDS: ASCORBIC ACID 500 MG/5 ML UNIT DOSE CUP GT SCH (10:38)
[2023-05-04 11:09] LABS: ANISOCYTOSIS 0; MACROCYTOSIS 0
[2023-05-04 11:59] LABS: BLOOD UREA NITROGEN 31.1 mg/dL (7-18); CALCIUM 8.3 mg/dL (8.5-10.1); CREATININE 0.8 mg/dL (0.55-1.3); MAGNESIUM 2.2 mg/dL (1.8-2.4); PHOSPHOROUS 3.5 mg/dL (2.5-4.9); POTASSIUM 4.6 mmol/L (3.5-5.1)
[2023-05-04 15:57] VITALS: BP 120/69; PULSE 72; RESP 16; TEMP 97.9
== END 2023-05-04 15:24 | DRG 853 ==
LOC: JER 15:46 → JERBED 20:32 → J2W 03-31 01:52 → J5S 04-07 20:14
PROVIDERS: ADMIT Internal Medicine; ATTEND Internal Medicine
PROC: 30233N1 Transfusion of Nonautologous Red Blood Cells into Peripheral Vein, Percutaneous Approach (ICD-10-PCS; 2023-03-30)
PROC: 5A1955Z Respiratory Ventilation, Greater than 96 Consecutive Hours (ICD-10-PCS; 2023-04-08)
PROC: 0D20XUZ Change Feeding Device in Upper Intestinal Tract, External Approach (ICD-10-PCS; 2023-05-02)
PROC: 0KBP0ZZ Excision of Left Hip Muscle, Open Approach (ICD-10-PCS; principal; 2023-05-03)
PROC: 0KBN0ZZ Excision of Right Hip Muscle, Open Approach (ICD-10-PCS; 2023-05-03)
DX: A41.9 Sepsis, unspecified organism (principal); J18.9 Pneumonia, unspecified organism; L89.154 Pressure ulcer of sacral region, stage 4; R53.2 Functional quadriplegia; J96.21 Acute and chronic respiratory failure with hypoxia; J96.22 Acute and chronic respiratory failure with hypercapnia; N17.9 Acute kidney failure, unspecified; E87.20 Acidosis, unspecified; E87.0 Hyperosmolality and hypernatremia; J98.11 Atelectasis; E46 Unspecified protein-calorie malnutrition; A04.72 Enterocolitis due to Clostridium difficile, not specified as recurrent; K94.23 Gastrostomy malfunction; Z68.1 Body mass index [BMI] 19.9 or less, adult; D64.9 Anemia, unspecified; G35 Multiple sclerosis; J44.9 Chronic obstructive pulmonary disease, unspecified; K21.9 Gastro-esophageal reflux disease without esophagitis; E11.51 Type 2 diabetes mellitus with diabetic peripheral angiopathy without gangrene; E78.5 Hyperlipidemia, unspecified; E86.0 Dehydration; F32.A Depression, unspecified; I73.9 Peripheral vascular disease, unspecified; E88.09 Other disorders of plasma-protein metabolism, not elsewhere classified; Y83.8 Other surgical procedures as the cause of abnormal reaction of the patient, or of later complication, without mention of misadventure at the time of the procedure; L89.620 Pressure ulcer of left heel, unstageable; Z79.84 Long term (current) use of oral hypoglycemic drugs
CPT/HCPCS: 0241U-QW; 36415; 36430; 36600; 71045-TC-FY; 74018-TC-FY; 80048; 80053; 81003; 82272; 82550; 82553; 82803; 82962; 83540; 83550; 83605; 83735; 84100; 84484; 85025; 85610; 85730; 86140; 86850; 86870; 86900; 86901; 86902; 86922; 87040; 87070; 87076; 87077; 87086; 87186; 87205; 87324; 87449; 87493; 87635; 88304-TC; 90686; 93005; 93010; 93306-TC; 94002; 94640; 94760; 99285-25; G0008; J0878; J1100; J1644; P9058